=== PATIENT | female | born 1950 | race Caucasian/White ===

== ENCOUNTER → 2020-01-08 13:33 | Outpatient (BNVA) | payer MEDICARE, OTHER, SELFPAY | PROVIDERS: Family Provider Internal Medicine; PCP Internal Medicine; Visit Provider Nurse Practitioner Family | DX: Z20.828 Contact with and (suspected) exposure to other viral communicable diseases (principal) | CPT/HCPCS: 87635 ==

== ENCOUNTER 2020-03-19 09:02 | Outpatient (CLI) | payer MEDICARE, OTHER, SELFPAY ==
--- NOTE | 2020-03-19 09:10 | MM_ITS ---
WS: [id number] Bilateral diagnostic digital mammogram, 03/19/2020 Clinical Data: HX OF BREAST CA Comparison: 02/02/2019, 06/08/2017, 05/29/2016, 05/20/2016, 05/10/2015, 03/09/2014, 01/03/2013, 12/10/2011, 08/05, 07/18/2009, 10/25/2008, 03/14/2008, 10/11/2007, 03/14/2007, 03/10/2007, 12/09/2006, 02/12/2006, 01/29. Findings: The left breast shows heterogeneous density. The left breast shows no spiculated masses or clustered calcifications. There are no secondary signs of carcinoma left breast. The right breast shows scarring and retraction from previous therapy, and the right breast implant is intact. No recurrent carcinoma is seen. There are benign calcifications in the right breast. MM/[id number] Impression: 1. Intact right breast implant and post therapy changes in the right breast, st able findings. 2. Negative left breast. 3. Recommend annual mammograms. BIRADS: 2-Benign FOLLOW UP: 1 Year Follow-up The CAD return checker was used.
== END 2020-03-19 09:03 | disposition home or self-care (01) ==
LOC: RADSHAW 09:08
PROVIDERS: Family Provider Internal Medicine; PCP Internal Medicine; Visit Provider Internal Medicine
DX: Z85.3 Personal history of malignant neoplasm of breast (principal); Z98.82 Breast implant status
CPT/HCPCS: 77066

== ENCOUNTER → 2020-10-03 13:08 | Outpatient (BNVA) | payer MEDICARE, OTHER, SELFPAY | PROVIDERS: Family Provider Internal Medicine; PCP Internal Medicine; Visit Provider Nurse Practitioner Family | DX: Z20.822 Contact with and (suspected) exposure to COVID-19 (principal); J06.9 Acute upper respiratory infection, unspecified; R43.0 Anosmia | CPT/HCPCS: 87635 ==

== ENCOUNTER → 2020-12-17 09:53 | Outpatient (BNVA) | payer MEDICARE, OTHER, SELFPAY | PROVIDERS: Family Provider Internal Medicine; PCP Internal Medicine; Visit Provider Family Medicine | DX: F41.9 Anxiety disorder, unspecified (principal); F32.9 Major depressive disorder, single episode, unspecified; N64.4 Mastodynia; Z13.6 Encounter for screening for cardiovascular disorders; E78.5 Hyperlipidemia, unspecified; I82.509 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 of unspecified lower extremity | CPT/HCPCS: 80053; 80061; 85025 ==

== ENCOUNTER 2020-12-27 09:18 | Outpatient (CLI) | payer MEDICARE, OTHER, SELFPAY ==
--- NOTE | 2020-12-27 09:30 | MM_ITS ---
WS: [id number] DIAGNOSTIC BILATERAL DIGITAL MAMMOGRAM WITH CAD Bilateral breast ultrasound, limited HISTORY: right breast pain COMPARISON: 03/19/2020, 02/02/2019, 06/08/2017 TECHNIQUE: Bilateral craniocaudad, mediolateral oblique, and mediolateral views are submitted. Spot c ompression LEFT ML. Computer aided detection utilized. Breast composition: Prior partial RIGHT lumpectomy with implant. Distortion of the breast tissue and soft tissue calcifications. No abnormality is identified or interval change. High density nodule rickie uring 8 mm seen best on the LEFT ML projecting above the nipple. This is probably edema present on pr ior studies but appears slightly more obvious today. Ultrasound to follow. Bilateral breast ultrasound: RIGHT breast: Ultrasound is directed to the area of pain along the lateral breast into the axilla. Th ere is no underlying mass or soft tissue abnormality identified. LEFT breast: Lateral LEFT breast is imaged. There is no mass identified. No corresponding abnormality to the high density area on the LEFT mammogram which is probably normal fibroglandular tissue [facility]. MM/[id number] IMPRESSION: BI-RADS: 2-Benign FOLLOW UP: 1 Year Follow-up
--- NOTE | 2020-12-27 10:15 | US_ITS ---
WS: [id number] DIAGNOSTIC BILATERAL DIGITAL MAMMOGRAM WITH CAD Bilateral breast ultrasound, limited HISTORY: right breast pain COMPARISON: 03/19/2020, 02/02/2019, 06/08/2017 TECHNIQUE: Bilateral craniocaudad, mediolateral oblique, and mediolateral views are submitted. Spot c ompression LEFT ML. Computer aided detection utilized. Breast composition: Prior partial RIGHT lumpectomy with implant. Distortion of the breast tissue and soft tissue calcifications. No abnormality is identified or interval change. High density nodule rickie uring 8 mm seen best on the LEFT ML projecting above the nipple. This is probably edema present on pr ior studies but appears slightly more obvious today. Ultrasound to follow. Bilateral breast ultrasound: RIGHT breast: Ultrasound is directed to the area of pain along the lateral breast into the axilla. Th ere is no underlying mass or soft tissue abnormality identified. LEFT breast: Lateral LEFT breast is imaged. There is no mass identified. No corresponding abnormality to the high density area on the LEFT mammogram which is probably [facility]/US breast BI limited* [id number] IMPRESSION: BI-RADS: 2-Benign FOLLOW UP: 1 Year Follow-up
== END 2020-12-27 09:19 | disposition home or self-care (01) ==
PROVIDERS: PCP Family Medicine; Visit Provider Family Medicine
DX: N64.4 Mastodynia (principal)
CPT/HCPCS: 76642; 77066

== ENCOUNTER 2021-07-23 13:49 | Outpatient (CLI) | payer MEDICARE, OTHER, SELFPAY ==
[2021-07-23 14:41] LABS: Basophils # 0.1 10^3/uL (0.0-0.1); Basophils % 1.2 %; Eosinophils # 0.3 10^3/uL (0.0-0.8); Eosinophils % 5.3 %; Hematocrit 34.5 % (37.0-47.0); Hemoglobin 11.2 g/dL (11.5-15.3); Lymphocytes # 1.2 10^3/uL (0.8-4.8); Lymphocytes % 19.6 %; Mean Corpuscular HGB Conc 32.5 g/dL (30.0-36.0); Mean Corpuscular Hemoglobin 33.2 pg (28.0-34.0); Mean Corpuscular Volume 102.4 fl (81-99); Mean Platelet Volume 9.6 fL (7.4-10.4); Monocytes # 0.6 10^3/uL (0.2-0.9); Monocytes % 9.2 %; Neutrophils # 3.86 10^3/uL (1.8-7.7); Neutrophils % 64.2 %; Nucleated Red Blood Cells % 0.3 %; Platelet Count 298 10^3/cmm (130-400); Red Blood Count 3.37 10^6/uL (4.1-5.3); Red Cell Distribution Width 16.5 % (12.1-15.1)
[2021-07-23 14:59] LABS: Erythrocyte Sedimentation Rate 48 mm/hr (0-15)
[2021-07-23 15:09] LABS: Alanine Aminotransferase 27 U/L (0-33); Albumin Level 3.8 g/dL (3.5-5.2); Alkaline Phosphatase 56 IU/L (35-105); Anion Gap 16.2 (5-19); Aspartate Amino Transferase 38 U/L (0-32); Blood Urea Nitrogen 12 mg/dL (8-23); Calcium 8.9 mg/dL (8.5-10.5); Carbon Dioxide 24 mmol/L (22-29); Chloride 98 mmol/L (98-107); Globulin 3.3 g/dL (1.3-4.6); Glomerular Filtration Rate 122.3 mL/min (90-130); Glucose 106 mg/dL (65-115); Osmolality Calculated 278 mOsm/kg (285-295); Potassium 4.2 mmol/L (3.5-5.1); Sodium 134 mmol/L (136-145); Total Bilirubin 0.2 mg/dL (0.15-1.2); Total Protein 7.1 g/dL (6.6-8.7)
[2021-07-23 15:24] LABS: 25 Hydroxy Vitamin D 94 ng/mL (30-100); Vitamin B12 852 pg/mL (232-1245)
[2021-07-23 16:51] LABS: Hepatitis B Surface AB 3.5 (11.5-1000)
== END 2021-07-23 13:50 | disposition home or self-care (01) ==
LOC: ONCMED 13:59
PROVIDERS: PCP Family Medicine; Visit Provider Nurse Practitioner Family
DX: K50.90 Crohn's disease, unspecified, without complications (principal)
CPT/HCPCS: 80053; 82306; 82607; 82657; 85025; 85651; 86140; 86706; 99213

== ENCOUNTER 2021-07-29 13:32 | Emergency (ER) | payer MEDICARE, OTHER, SELFPAY ==
[2021-07-29 14:08] VITALS: BP 148/80; PULSE 82; RESP 16; TEMP 36.4; O2SAT 100; BMI 29.0
--- NOTE | 2021-07-29 14:28 | XR_ITS ---
WS: [id number] LEFT HAND: 3 VIEW(S) TECHNIQUE: PA, oblique and lateral. HISTORY: fall with wrist and thumb pain COMPARISON: None available. No acute fracture or dislocation. No soft tissue or bone abnormality. Mild interphalangeal joint space narrowing. No erosions. XR/XR hand LT min 3V* [id number] IMPRESSION: No LEFT hand fracture.
--- NOTE | 2021-07-29 14:28 | XR_ITS ---
WS: [id number] LEFT WRIST: 3 VIEW(S) TECHNIQUE: PA, oblique and lateral. HISTORY: fall with wrist pain COMPARISON: 12/02/2014 No acute fracture or dislocation. Mild diffuse osteopenia. No joint space abnormality. No soft tissue swelling. XR/XR wrist LT min 3V* [id number] IMPRESSION: No LEFT wrist fracture.
--- NOTE | 2021-07-29 14:28 | CT_ITS ---
WS: [id number] CT HEAD NONCONTRAST HISTORY: fall and possibly hit head, no LOC. pt on blood thinner TECHNIQUE: Contiguous axial imaging performed through the brain in 2.5 mm imaging. Bone and soft tiss ue windows. Sagittal and coronal reformats reviewed. All CT scans at [facility] use at least one of these dose optimization techniques: automated exposure control; mA and/or kV adjustment per pa tient size (includes targeted exams where dose is matched to clinical indication); or iterative recon struction. DLP: 949.06 mGy.cm COMPARISON: None available. No acute intracranial hemorrhage, midline shift or mass effect. No atrophy or prior infarcts or herniation. Mild small vessel ischemic disease.13 Ventricles: Normal size with no hydrocephalus. Moderate calcification in the cavernous carotid arteries. Paranasal sinuses: As visualized are clear. Mastoid air cells: Well pneumatized. Calvarium and scalp: Skull is intact with no soft tissue edema or swelling. There is a 5 mm high density foreign body along the anterior surface of the LEFT globe. This may be a calcification or foreign body from the recent trauma. CT/CT head wo con* [id number] IMPRESSION: 1. No acute intracranial hemorrhage or edema. 2. Mild small vessel ischemic disease.
--- NOTE | 2021-07-29 14:28 | XR_ITS ---
WS: [id number] LEFT KNEE: 3 VIEW(S) TECHNIQUE: AP, oblique(s) and lateral. HISTORY: fall with knee pain COMPARISON: 11/15/2015 No fracture or dislocation. Prior LEFT knee arthroplasty. No joint space narrowing or osteophytes. No joint effusion. No soft tissue abnormality. XR/XR knee LT 3V* [id number] IMPRESSION: 1. Status post LEFT knee arthroplasty. 2. No acute fracture.
--- NOTE | 2021-07-29 14:31 | ED_ITS ---
HPI - Fall General: Chief Complaint: Fall Stated Complaint: left wrist injury Time Seen by Provider: 07/29/21 14:14 History of Present Illness: Patient is a 71-year-old female comes to the ED after fall. Patient says she was taking her dogs out for a walk and tripped while walking over a curb. She fell down on the left side and is complaining of having some left knee pain, left wrist and hand pain. Patient is on blood thinners and states that she is unsure if she hit her head or not. Denies any loss of consciousness, headache, nausea/vomiting, numbness/tingling to 1 side of body or weakness to 1 side of body. Denies any neck pain currently. Most of her pain is in her left wrist and she says any movement causes worsening pain. She rates the pain 10 out of 10. Associated symptoms-after fall: Denies abdominal pain, chest pain, headache(s), hematuria or neck pain Review of Systems Const: Denies: fever(s), chills or fatigue Eyes: Denies: change in vision or eye discomfort ENMT: Denies: throat pain, odynophagia, nasal discharge or nasal congestion Card: Denies: chest pain, palpitations, edema, swelling of feet/ankles, dyspnea on exertion or orthopnea Resp: Denies: dyspnea, productive cough or non-productive cough GI: Denies: abdominal pain, nausea, vomiting, diarrhea, constipation or hematochezia : Denies: flank pain, dysuria or hematuria Musc: Reports: extremity pain (Left wrist, left hand and left knee pain.); Denies: neck pain, back pain or extremity swelling Skin/Breast: Denies: rash or new lesions Neuro: Denies: headache(s), numbness in extremities or weakness in extremities PFS ED PFSH: Medical History Anxiety and depression Asthma Crohn disease DVT (deep venous thrombosis) recurrent Dyslipidemia Encounter for long-term opiate analgesic use Factor V deficiency Low back pain of over 3 months duration KEY (nonalcoholic steatohepatitis) Opioid contract exists Osteoporosis Pain in thoracic spine Stable burst fracture of fifth lumbar vertebra Surgical History History of ankle surgery History of arthroplasty of right shoulder History of arthroscopy of left knee x3 History of back surgery 07/19/17 thoracic laminotomy, with placement of intraspinal epidureal paddle electrode arrays( [employer] art[employer], 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 Placement of subcutaneous programmable pulse generator ([employer]) History of basal cell carcinoma excision Nasal History of knee replacement, total 02/2015 History of lumpectomy of right breast 2007 History of partial hysterectomy 1986 History of total replacement of right shoulder joint 2007 and multiple surgeries Hx of eye surgery stent placed in left eye and cataracts Hx of tonsillectomy age 4 Family History Unknown Cancer Social History Smoking and tobacco status: current every day smoker Alcohol intake: former History of recent travel: No Physical Exam Const: COMMON NORMALS: no acute distress, patient oriented x3 and alert GENERAL APPEARANCE: cooperative and comfortable HENMT: COMMON NORMALS: normocephalic HEAD & SCALP: normocephalic MOUTH: Normal oral and palatal mucosa present THROAT: posterior oropharynx normal and uvula midline Eye: COMMON NORMALS: Equal, round and reactive pupils present, EOMs intact bi laterally and conjunctivae normal CONJUNCTIVA: Yes conjunctivae normal PUPIL: Yes Equal, round and reactive pupils present Neck/C-Spine: COMMON NORMALS: supple GENERAL: Yes normal visual inspection Resp: COMMON NORMALS: normal respiratory effort, No retractions, No use of accessory muscles and clear to auscultation bilaterally AUSCULTATION: clear to auscultation bilaterally Cardio: COMMON NORMALS: regular rate, regular rhythm, S1 normal heart sound present, S2 normal heart sound present, No gallops present (Cardio), No clicks present (Cardio), No murmurs present (Cardio) and Peripheral pulses 2+ throughout RATE: regular rate RHYTHM: regular rhythm HEART SOUNDS: S1 normal heart sound present and S2 normal heart sound present PERIPHERAL PULSES: Peripheral pulses 2+ throughout GI: COMMON NORMALS: Normal to inspection, nondistended, normoactive bowel sounds present, Soft to palpation, non-tender and no masses PALPATION: Yes Soft to palpation : COMMON NORMALS: Yes no CVA tenderness BLADDER/KIDNEY EXAM: Yes no CVA tenderness Back/Pelvis: COMMON NORMALS: no CVA tenderness Extremity: COMMON NORMALS: normal to inspection LEFT UPPER EXTREMITY: Yes wrist Left wrist: Yes inspection (No visible deformity or swelling.), Yes palpation (Tenderness over radial aspect of wrist.) and Yes neurovascular exam (Neurovascular tact) Neuro: COMMON NORMALS: patient oriented x3, CN's II-XII intact bilaterally, moves all extremities, no focal motor deficits and no sensory deficits noted SENSORIUM/ORIENTATION: Yes alert SENSORY EXAM: Yes extremities (intact) MOTOR EXAM: 5/5 motor strength present throughout Skin: GENERAL SKIN EXAM: dry skin Course Vital Signs: Vital signs: Vital Signs Temperature 97.5 F L 07/29/21 14:08 Pulse Rate 82 07/29/21 14:08 Respiratory Rate 16 07/29/21 14:08 Blood Pressure 148/80 07/29/21 14:08 Pulse Oximetry 100 07/29/21 14:08 MDM - Fall Medical Decision Making Patient is a 71-year-old female comes to the ED with left wrist pain after fall. Patient is on blood thinners and thinks she possibly hit her head but denies any loss of consciousness. She also is complaining of some left knee pain as well. Exam is benign and neuro exam shows no deficits. CT of head showed no acute fractures. X-rays of left knee, left wrist and left hand showed no acute fractures or findings. Patient was diagnosed with a left wrist sprain and discharged home. She was told to follow-up with her PCP in the next week for reevaluation. Wear Velcro wrist brace for the next couple days to allow for healing. Return to ED precautions given. Patient is to agree with plan. Lab Data Radiology Impressions Hand X-Ray 07/29/21 14:28 IMPRESSION: No LEFT hand fracture. Head CT 07/29/21 14:28 IMPRESSION: 1. No acute intracranial hemorrhage or edema. 2. Mild small vessel ischemic disease. Knee X-Ray 07/29/21 14:28 IMPRESSION: 1. Status post LEFT knee arthroplasty. 2. No acute fracture. Wrist X-Ray 07/29/21 14:28 IMPRESSION: No LEFT wrist fracture. Discharge Plan Discharge Patient Disposition: Home Clinical Impression: Left wrist sprain Qualifiers: Encounter type: initial encounter Qualified Code(s): S63.502A - Unspecified sprain of left wrist, initial encounter Condition: Stable Prescriptions: No Action All Day Allergy (cetirizine) 10 mg capsule 10 mg PO DAILY PRN0RF albuterol sulfate [Ventolin HFA] 90 mcg/actuation HFA aerosol inhaler 1 inh INHALATION ONCE PRN0RF Prolia 60 mg/mL syringe SUBCUT .every 6 months 0RF lactulose 10 gram/15 mL syrup PO .as needed 0RF cyclobenzaprine 10 mg tablet 10 mg PO TID Qty: 90 2RF tramadol 50 mg tablet 50 mg PO .1-2 tab TID PRN (Reason: pain) Qty: 180 1RF azathioprine 50 mg tablet 100 mg PO BID 0RF aripiprazole 2 mg tablet 2 mg PO DAILY Qty: 90 1RF Rx Instructions: 340 B citalopram 40 mg tablet 40 mg PO DAILY Qty: 90 1RF amoxicillin-pot clavulanate [Augmentin] 875-125 mg tablet 1 tab PO BID Qty: 20 0RF Mucinex 1,200 mg tablet extended release 12hr 1,200 mg PO BID Qty: 20 0RF nortriptyline 25 mg capsule 25 mg PO DAILY Qty: 90 1RF atorvastatin 10 mg tablet 10 mg PO DAILY Qty: 90 1RF calcium carbonate [Calcium 600] 600 mg calcium (1,500 mg) tablet 600 mg PO DAILY Qty: 90 1RF cholecalciferol (vitamin D3) 125 mcg (5,000 unit) capsule 125 mcg PO DAILY Qty: 90 1RF omeprazole 40 mg capsule,delayed release(DR/EC) 40 mg PO DAILY Qty: 90 1RF brimonidine 0.2 % drops 1 drp ophthalmic (eye) .COMPLEX 90 Days Qty: 30 1RF Rx Instructions: 1 drp ophthalmic (eye) 1 drop in each eye BID; latanoprost 0.005 % drops 1 drp ophthalmic (eye) .COMPLEX 30 Days Qty: 7.5 1RF Rx Instructions: 1 drp ophthalmic (eye) 1 drop at bedtime in both eyes; warfarin 5 mg tablet 5 mg PO DAILY Qty: 90 1RF Rx Instructions: As directed warfarin 2.5 mg tablet 2.5 mg PO DAILY Qty: 90 1RF Rx Instructions: As directed warfarin 10 mg tablet 10 mg PO .COMPLEX 90 Days Qty: 132 1RF Rx Instructions: 10 mg PO 17.2MG Tues,thurs,sat take with 7.5mg 22.5mg sun,mon,weds,fri; take with 2.5mg Discharge Orders: Discharge ED (Routine); Ordered 07/29/21 Ordered By: Vineet Donahue Referrals: Mckenna Rubin DO [Primary Care Provider] - Discharge Diet: Regular Discharge Activity: Increase activity as tolerated Patient Instructions: Wrist Sprain (ED) Activity Restrictions/Additional Instructions: Follow-up with medical provider as directed. Continue taking home medications as prescribed. Wear wrist brace for the next couple days to allow for it to heal. Return to the ER or your medical provider if condition worsens. Please read and understand discharge instructions. Thank you for choosing [facility] for your healthcare needs today. Please realize this is an emergency room and that we are providing you with a medical screening exam and this may not be complete and all inclusive of all the testing and or work up that you may need to determine your ailment or severity of your illness. It is very important that you follow up as instructed or that you return to the Emergency Department should you have concerns or if your condition changes or worsens in any way. Coding Level of Care Code ED Check Inspector for Misti Elizabeth Exam Comprehensive
[2021-07-29] MEDS: HYDROcodone-acetaminophen 7.5-325 mg Tablet 1 TAB PO (15:01)
== END 2021-07-29 16:08 | disposition home or self-care (01) ==
PROVIDERS: Emergency Provider Physician Assistant; PCP Family Medicine
DX: S63.502A Unspecified sprain of left wrist, initial encounter (principal); F17.210 Nicotine dependence, cigarettes, uncomplicated; W01.198A Fall on same level from slipping, tripping and stumbling with subsequent striking against other object, initial encounter; Z79.51 Long term (current) use of inhaled steroids; Z79.891 Long term (current) use of opiate analgesic; Z79.01 Long term (current) use of anticoagulants
CPT/HCPCS: 70450; 73110; 73130; 73562; 99283

== ENCOUNTER 2021-08-07 05:39 | Day surgery (SDC) | payer MEDICARE, OTHER, SELFPAY ==
[2021-08-06 08:40] VITALS: BMI 29.0
[2021-08-07 06:07] VITALS: BP 127/75; PULSE 82; RESP 18; TEMP 36.1; O2SAT 100
[2021-08-07] MEDS: sodium chloride 0.9% 1,000 ML 30 ML IV (06:17)
--- NOTE | 2021-08-07 06:38 | W.PM.OPSUD ---
Surgery/Procedure H&P Update DATE OF PROCEDURE: August 07, 2021 DATE H&P PERFORMED: 07/23/21 H&P UPDATE INFORMATION: I have reviewed H&P completed within last 30 days, I have examined patient prior to procedure and No changes to prior documentation PREOP DIAGNOSIS: History of Crohn's disease PRIMARY INDICATION FOR PROCEDURE: The same PLANNED PROCEDURE: Operation Date: 08/07/21 07:00 Proposed Procedures p Colonoscopy 20294/k50.90 (Dr Herrera requested double time slot)(Not Applicable) - Jamin Herrera MD
--- NOTE | 2021-08-07 07:00 | P.ANESASSM_ITS ---
Pre-Anesthetic Assessment Height/Weight: Height 1.7 m Weight 83.915 kg Temp Pulse Resp BP Pulse Ox 97.0 F L 82 18 127/75 100 08/07/21 06:07 08/07/21 06:07 08/07/21 06:07 08/07/21 06:07 08/07/21 06:07 Preop Diagnosis: History of Crohn's disease Operation Date: 08/07/21 07:00 Proposed Procedures p Colonoscopy 50142/k50.90 (Dr Herrera requested double time slot)(Not Applicable) - Jamin Herrera MD Was Beta Evelia taken within 24 hours: N/A Was Clonidine taken within 24 hours: N/A Last intake: Intake Last Liquid Date 08/06/21 Last Liquid Time 20:00 Last Solid Date 08/05/21 Social Tobacco Exam alert, oriented x 3, clear to auscultation bilaterally and regular rate & rhythm Airway Submandibular: within normal limits Cervical ROM: within normal limits Mallampati: Class II Dentition: full History/ROS No significant history except as noted and No significant complaints Pulmonary Asthma CV/HEM None reported None reported Hepatic None reported GI Chron's Metabolic None reported Musc/skel Lower Back Pain nerve stimulator Neuropsych Anxiety and Depression Anesthetic Plan ASA status: 3 Anesthesia: Anesthesia Evaluation and MAC Risk of > 500 ml blood loss (7ml/kg in children): No Medications/Allergies Home Medications Medication Instructions Recorded Confirmed Last Taken Type albuterol sulfate 90 mcg/actuation 1 inh INHALATION PRN PRN gm 07/25/19 08/07/21 Unknown History aerosol inhaler (Ventolin HFA) denosumab 60 mg/mL subcutaneous 60 mg SUBCUT .every 6 months ml 07/25/19 08/07/21 Unknown History syringe (Prolia) lactulose 10 gram/15 mL oral syrup 10 gm PO DAILY 07/25/19 08/07/21 08/06/21 History tramadol 50 mg tablet 50 mg PO .1-2 tab TID PRN #180 tab 07/25/19 08/07/21 08/06/21 Rx cetirizine 10 mg capsule (All Day 10 mg PO DAILY PRN 11/12/20 08/07/21 08/06/21 History Allergy (cetirizine)) azathioprine 50 mg tablet 100 mg PO BID tab 01/14/21 08/07/2108/06/22 History atorvastatin 10 mg tablet 10 mg PO DAILY #90 tab 03/07/21 08/07/21 08/06/21 Rx calcium carbonate 600 mg calcium 600 mg PO DAILY #90 tab 03/07/21 08/07/21 08/06/21 Rx (1,500 mg) tablet (Calcium) cholecalciferol (vitamin D3) 125 125 mcg PO DAILY #90 cap 03/07/21 08/07/21 08/06/21 Rx mcg (5,000 unit) capsule omeprazole 40 mg capsule,delayed 40 mg PO DAILY #90 cap 03/07/21 08/07/21 08/06/21 Rx release brimonidine 0.2 % eye drops 1 drp OPHTHALMIC (EYE) .COMPLEX 90 03/10/21 08/07/21 08/06/21 Rx Days #30 ml aripiprazole 2 mg tablet 2 mg PO DAILY #90 tab 04/15/21 08/07/21 08/06/21 Rx citalopram 40 mg tablet 40 mg PO DAILY #90 tab 04/15/21 08/07/21 08/06/21 Rx warfarin 2.5 mg tablet 2.5 mg PO DAILY #90 tab 05/13/21 08/06/21 08/04/21 Rx warfarin 5 mg tablet 5 mg PO DAILY #90 tab 05/13/21 08/06/21 08/04/21 Rx warfarin 10 mg tablet 10 mg PO .COMPLEX 90 Days #132 tab 05/15/21 08/06/21 08/04/21 Rx cyclobenzaprine 10 mg tablet 10 mg PO TID PRN 08/06/21 08/07/21 08/06/21 History latanoprost 0.005 % eye drops 1 drp OPHTHALMIC (EYE) BEDTIME 08/06/21 08/07/21 08/06/21 History ojtidebc-aae-cahqi 120 mcg-lutein 1 tab PO DAILY 08/06/21 08/07/21 08/06/21 History 150 mcg-herb 37.5 mg chewable tablet (Alive Women's 50 Plus) nortriptyline 25 mg capsule 25 mg PO BEDTIME 08/06/21 08/07/21 08/06/21 History Allergies Allergy/AdvReac Type Severity Reaction Status Date / Time No Known Allergies Allergy Verified 08/07/21 06:12 Current Medications Generic Name Dose Route Start Last Admin Trade Name Freq PRN Reason Stop Dose Admin Sodium Chloride 1,000 mls @ 30 mls/hr 08/07/21 06:00 08/07/21 06:17 Sodium Chloride 0.9% IV 30 mls/hr .Q24H STEWART Administration PFSH Anesthesia Medical History Anxiety and depression Asthma Crohn disease DVT (deep venous thrombosis) recurrent Dyslipidemia Encounter for long-term opiate analgesic use Factor V deficiency Low back pain of over 3 months duration KEY (nonalcoholic steatohepatitis) Opioid contract exists Osteoporosis Pain in thoracic spine Stable burst fracture of fifth lumbar vertebra Surgical History History of ankle surgery History of arthroplasty of right shoulder History of arthroscopy of left knee x3 History of back surgery 07/19/17 thoracic laminotomy, with placement of intraspinal epidureal paddle electrode arrays( [employer] art[employer], 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 Placement of subcutaneous programmable pulse generator ([employer]) History of basal cell carcinoma excision Nasal History of knee replacement, total 02/2015 History of lumpectomy of right breast 2007 History of partial hysterectomy 1986 History of total replacement of right shoulder joint 2008 and multiple surgeries Hx of eye surgery stent placed in left eye and cataracts Hx of tonsillectomy age 4 Family History Unknown Cancer Social History Smoking and tobacco status: current every day smoker Alcohol intake: former History of recent travel: No Data Anesthesia Cardiac Studies: No Data to Display
[2021-08-07 08:32] VITALS: BP 152/102; PULSE 80; RESP 18; TEMP 36.1; O2SAT 100
[2021-08-07 08:47] VITALS: BP 154/90; PULSE 73; RESP 16; O2SAT 100
== END 2021-08-07 09:07 | disposition home or self-care (01) ==
PROVIDERS: PCP Family Medicine; Visit Provider Surgery
PROC: 0DJD8ZZ Inspection of Lower Intestinal Tract, Via Natural or Artificial Opening Endoscopic (ICD-10-PCS; CPT 45378; principal; 2021-08-07 07:00)
DX: Z12.11 Encounter for screening for malignant neoplasm of colon (principal); K57.30 Diverticulosis of large intestine without perforation or abscess without bleeding; J45.909 Unspecified asthma, uncomplicated; F41.9 Anxiety disorder, unspecified; F32.9 Major depressive disorder, single episode, unspecified; E78.5 Hyperlipidemia, unspecified; Z86.718 Personal history of other venous thrombosis and embolism; M81.0 Age-related osteoporosis without current pathological fracture; F17.210 Nicotine dependence, cigarettes, uncomplicated
CPT/HCPCS: 45380; 88305; J2704; J7030

== ENCOUNTER → 2021-08-14 14:17 | Outpatient (BNVA) | payer MEDICARE, OTHER, SELFPAY | PROVIDERS: PCP Family Medicine; Visit Provider Surgery | DX: Z09 Encounter for follow-up examination after completed treatment for conditions other than malignant neoplasm (principal); K57.31 Diverticulosis of large intestine without perforation or abscess with bleeding; Z87.19 Personal history of other diseases of the digestive system | CPT/HCPCS: 99213 ==

== ENCOUNTER 2021-09-09 10:00 | Outpatient (CLI) | payer MEDICARE, OTHER, SELFPAY ==
[2021-09-09 11:00] LABS: Basophils % 0.9 %; Eosinophils # 0.1 10^3/uL (0.0-0.8); Eosinophils % 1.8 %; Hematocrit 34.8 % (37.0-47.0); Hemoglobin 11.2 g/dL (11.5-15.3); Lymphocytes # 0.8 10^3/uL (0.8-4.8); Mean Corpuscular HGB Conc 32.2 g/dL (30.0-36.0); Mean Corpuscular Hemoglobin 32.7 pg (28.0-34.0); Mean Corpuscular Volume 101.8 fl (81-99); Mean Platelet Volume 9.5 fL (7.4-10.4); Monocytes # 0.4 10^3/uL (0.2-0.9); Monocytes % 9.4 %; Neutrophils # 3.01 10^3/uL (1.8-7.7); Neutrophils % 69.4 %; Nucleated Red Blood Cells % 0 %; Platelet Count 289 10^3/cmm (130-400); Red Blood Count 3.42 10^6/uL (4.1-5.3); Red Cell Distribution Width 16.6 % (12.1-15.1); White Blood Count 4.3 10^3/uL (4.0-10.0)
[2021-09-09 11:29] LABS: INR 1.94 (0.8-1.2)
[2021-09-09 11:33] LABS: Alanine Aminotransferase 23 U/L (0-33); Albumin Level 3.7 g/dL (3.5-5.2); Alkaline Phosphatase 73 IU/L (35-105); Anion Gap 13.2 (5-19); Aspartate Amino Transferase 36 U/L (0-32); Blood Urea Nitrogen 7 mg/dL (8-23); Calcium 9.2 mg/dL (8.5-10.5); Carbon Dioxide 25 mmol/L (22-29); Chloride 95 mmol/L (98-107); Globulin 2.9 g/dL (1.3-4.6); Glomerular Filtration Rate 122.3 mL/min (90-130); Glucose 117 mg/dL (65-115); Osmolality Calculated 267 mOsm/kg (285-295); Potassium 4.2 mmol/L (3.5-5.1); Sodium 129 mmol/L (136-145); Total Bilirubin 0.4 mg/dL (0.15-1.2); Total Protein 6.6 g/dL (6.6-8.7)
== END 2021-09-09 10:01 | disposition home or self-care (01) ==
PROVIDERS: PCP Family Medicine; Visit Provider Internal Medicine Obesity Medicine
DX: K76.0 Fatty (change of) liver, not elsewhere classified (principal); Z79.01 Long term (current) use of anticoagulants
CPT/HCPCS: 80053; 85025; 85610

== ENCOUNTER 2021-10-11 09:43 | Emergency (ER) | payer MEDICARE, OTHER, SELFPAY ==
[2021-10-11 10:04] VITALS: BP 122/74; PULSE 86; RESP 14; TEMP 36.6; O2SAT 97; BMI 28.3
[2021-10-11 10:15] VITALS: BP 136/73; PULSE 76; O2SAT 100
[2021-10-11] MEDS: ketorolac 30 mg/mL INJ IM (10:29)
[2021-10-11] MEDS: orphenadrine 30 mg/mL Inj 2 mL 60 MG IM (10:29)
[2021-10-11] MEDS: dexamethasone 10 mg/mL INJ IM (10:29)
--- NOTE | 2021-10-11 10:49 | XRR_ITS ---
PROCEDURE INFORMATION: Exam: XR Lumbosacral Spine Exam date and time: 10/11/2021 11:18 AM Age: 71 years old Clinical indication: Low back pain; Prior surgery; Additional info: HX compression FX - pain TECHNIQUE: Imaging protocol: Radiologic exam of the lumbosacral spine. Views: 2 or 3 views. COMPARISON: [place] [id number] 11/15/2017 3:06 PM FINDINGS: Bones/joints: There is generalized osteopenia seen. Compression fractures are present at the L4 and L5 vertebral body levels status post kyphoplasty. The superior endplate of the L2 vertebral body also shows compression fracture. This finding is new since prior Soft tissues: Electronic spinal stimulator is seen in the soft tissues of the back. Evidence of cholecystectomy is seen. XR/XR lumbar spine 2-3V* [id number] IMPRESSION: 1. Severe osteopenia stable since prior 2. Vertebral compression deformity is L4-L5 status post kyphoplasty. 3. Compression deformity superior endplate L2 vertebral body
--- NOTE | 2021-10-11 10:50 | W.ED.BACK ---
HPI - Back Pain/Injury General: Chief Complaint: Back Pain/Injury Stated Complaint: back pain Time Seen by Provider: 10/11/21 09:48 Source: patient Mode of arrival: ambulatory Limitations: no limitations History of Present Illness: 71-year-old female presents emergency room complaining of back pain. Began while lifting furniture about 1 week ago. Patient has known history of spinal stenosis and previously had a spinal cord stimulator implanted about 5 years ago. She tried various settings under spinal cord stimulator with no relief of her symptoms. She has not had any fecal incontinence or urinary retention no radiation of pain into her legs pain is in the lower portion of her lumbar spine. MD elicited complaint: back pain Pertinent past history: prior back pain Onset (ago): week(s) (1) Timing: constant Severity: moderate Similar Symptoms Previously: Yes Quality: sharp Location: lumbar spine Radiation: none Exacerbating factors: movement and walking Relieving factors: supine Context: while lifting Associated symptoms: Deny abdominal pain, arthralgias, chills, change in bowel habits, difficulty walking, dysuria, fatigue, fecal incontinence, fever(s), hematuria, myalgias, nausea, numbness, syncope, tingling/numbness/burning, urinary frequency, urinary urgency, vomiting or weakness Review of Systems Const: Denies: fever(s), chills, fatigue or malaise ENMT: Denies: throat pain, ear or mastoid pain, nasal discharge or nasal congestion Card: Denies: chest pain, palpitations or syncope Resp: Denies: dyspnea, productive cough or non-productive cough GI: Denies: abdominal pain, nausea, vomiting, fecal incontinence or change in bowel habits : Denies: flank pain, difficulty voiding, dysuria, urinary frequency, urinary urgency or hematuria Musc: Reports: back pain; Denies: extremity pain Skin/Breast: Denies: rash or pruritus Neuro: Denies: headache(s) or difficulty walking PFSH ED PFSH: Medical History Anxiety and depression Asthma Crohn disease DVT (deep venous thrombosis) recurrent Dyslipidemia Encounter for long-term opiate analgesic use Factor V deficiency Low back pain of over 3 months duration KEY (nonalcoholic steatohepatitis) Opioid contract exists Osteoporosis Pain in thoracic spine Stable burst fracture of fifth lumbar vertebra Surgical History History of ankle surgery History of arthroplasty of right shoulder History of arthroscopy of left knee x3 History of back surgery 07/19/17 thoracic laminotomy, with placement of intraspinal epidureal paddle electrode arrays( [employer]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 Placement of subcutaneous programmable pulse generator ([employer]) History of basal cell carcinoma excision Nasal History of knee replacement, total 02/2015 History of lumpectomy of right breast 2007 History of partial hysterectomy 1986 History of total replacement of right shoulder joint 2007 and multiple surgeries Hx of eye surgery stent placed in left eye and cataracts Hx of tonsillectomy age 4 Family History Unknown Cancer Social History Smoking and tobacco status: current every day smoker Alcohol intake: former History of recent travel: No Physical Exam Const: GENERAL APPEARANCE: cooperative and comfortable ORIENTATION/CONSCIOUSNESS: Yes awake, Yes oriented to person, Yes oriented to place and Yes oriented to time HENMT: COMMON NORMALS: normocephalic, atraumatic and hearing grossly normal bilaterally HEAD & SCALP: normocephalic and atraumatic Neck/C-Spine: COMMON NORMALS: no JVD Resp: COMMON NORMALS: normal respiratory effort, No retractions, No use of accessory muscles and clear to auscultation bilaterally AUSCULTATION: clear to auscultation bilaterally Cardio: COMMON NORMALS: no JVD, regular rate, regular rhythm and No murmurs present (Cardio) RATE: regular rate RHYTHM: regular rhythm GI: COMMON NORMALS: Soft to palpation and No hepatosplenomegaly present AUSCULTATION: Yes normoactive bowel sounds PALPATION: Yes Soft to palpation, No Tenderness to palpation present (GI), No Guarding due to palpation present (GI) and Yes No hepatosplenomegaly present : COMMON NORMALS: No no CVA tenderness BLADDER/KIDNEY EXAM: No no CVA tenderness Back/Pelvis: COMMON NORMALS: negative for no CVA tenderness Extremity: COMMON NORMALS: normal to inspection, capillary refill normal, no clubbing, cyanosis or edema, no calf tenderness and no pedal edema OTHER: Straight leg raising is negative Neuro: SENSORIUM/ORIENTATION: Yes oriented to person, Yes oriented to place and Yes oriented to time Skin: COMMON NORMALS: no rashes or lesions noted GENERAL SKIN EXAM: no rashes or lesions noted Course Vital Signs: Vital signs: Vital Signs Temperature 98 F 10/11/21 10:04 Pulse Rate 69 10/11/21 11:04 Respiratory Rate 14 10/11/21 10:04 Blood Pressure 112/63 10/11/21 11:04 Pulse Oximetry 98 10/11/21 11:04 MDM - Back Pain/Injury Medical Decision Making Treat for musculoskeletal low back pain imaging reviewed. Discussed with patient. No later at signing this document noted that the radiologist was concerned about her compression for deformity at the superior endplate of L2. Patient was advised to follow-up with primary care. Medical Records I reviewed the patient's medical records. Labs I reviewed the patient's lab results. Radiology Impressions Lumbar Spine X-Ray 10/11/21 10:49 IMPRESSION: 1. Severe osteopenia stable since prior 2. Vertebral compression deformity is L4-L5 status post kyphoplasty. 3. Compression deformity superior endplate L2 vertebral body Discharge Plan Discharge Patient Disposition: Home Clinical Impression: Strain of lumbar region Condition: Stable Prescriptions: New prednisone 20 mg tablet 20 mg PO TID Qty: 15 0RF Rx Instructions: 1 p.o. 3 times daily x3 days, 1 p.o. twice daily x2 days, 1 p.o. daily x2 days diclofenac sodium 75 mg tablet,delayed release (DR/EC) 75 mg PO Q12H PRN (Reason: pain) Qty: 20 0RF tizanidine 4 mg capsule 4 mg PO Q8H PRN (Reason: muscle spasticity) Qty: 20 0RF No Action All Day Allergy (cetirizine) 10 mg capsule 10 mg PO DAILY PRN (Reason: Allergy Symptoms) 0RF albuterol sulfate [Ventolin HFA] 90 mcg/actuation HFA aerosol inhaler 1 inh INHALATION PRN PRN (Reason: Shortness Of Breath) 0RF Prolia 60 mg/mL syringe 60 mg SUBCUT .every 6 months 0RF lactulose 10 gram/15 mL syrup 10 gm PO DAILY 0RF tramadol 50 mg tablet 50 mg PO .1-2 tab TID PRN (Reason: pain) Qty: 180 1RF azathioprine 50 mg tablet 100 mg PO BID 0RF aripiprazole 2 mg tablet 2 mg PO DAILY Qty: 90 1RF Rx Instructions: 340 B metronidazole 500 mg tablet 500 mg PO Q8H 10 Days Qty: 30 0RF ciprofloxacin HCl [Cipro] 500 mg tablet 500 mg PO BID 10 Days Qty: 20 0RF atorvastatin 10 mg tablet 10 mg PO DAILY Qty: 90 1RF calcium carbonate [Calcium 600] 600 mg calcium (1,500 mg) tablet 600 mg PO DAILY Qty: 90 1RF cholecalciferol (vitamin D3) 125 mcg (5,000 unit) capsule 125 mcg PO DAILY Qty: 90 1RF brimonidine 0.2 % drops 1 drp ophthalmic (eye) .COMPLEX 90 Days Qty: 30 1RF Rx Instructions: 1 drp ophthalmic (eye) 1 drop in each eye BID; warfarin 5 mg tablet 5 mg PO DAILY Qty: 90 1RF Hold Instructions: Resume on 08/13/21. Rx Instructions: As directed warfarin 2.5 mg tablet 2.5 mg PO DAILY Qty: 90 1RF Hold Instructions: Resume on 08/13/21. Rx Instructions: As directed warfarin 10 mg tablet 10 mg PO .COMPLEX 90 Days Qty: 132 1RF Hold Instructions: Resume on 08/12/21. Rx Instructions: 10 mg PO 17.5MG Tues,thurs. 15mg all other days omeprazole 40 mg capsule,delayed release(DR/EC) See Rx Instructions .ROUTE .COMPLEX Qty: 90 0RF Dose Instruction: TAKE 1 CAPSULE EVERY DAY Rx Instructions: TAKE 1 CAPSULE EVERY DAY nortriptyline 25 mg capsule 25 mg PO BEDTIME Qty: 90 1RF latanoprost 0.005 % drops See Rx Instructions .ROUTE .COMPLEX Qty: 3 0RF Dose Instruction: INSTILL 1 DROP INTO BOTH EYES AT BEDTIME Rx Instructions: INSTILL 1 DROP INTO BOTH EYES AT BEDTIME citalopram 40 mg tablet See Rx Instructions .ROUTE .COMPLEX Qty: 90 0RF Dose Instruction: TAKE 1 TABLET EVERY DAY Rx Instructions: TAKE 1 TABLET EVERY DAY Alive Women's 50 Plus Gummy 120 mcg-150 mcg -37.5 mg Tablet,Chewable 1 tab PO DAILY 0RF cyclobenzaprine 10 mg tablet 10 mg PO TID PRN (Reason: Spasms) 0RF Discharge Orders: Discharge ED (Routine); Ordered 10/11/21 Ordered By: Miller Dinero Referrals: Mckenna Rubin DO [Primary Care Provider] - Discharge Diet: Usual diet Discharge Activity: Limit activity as instructed Patient Instructions: Acute Low Back Pain (ED), Opioid Safety Activity Restrictions/Additional Instructions: No lifting bending or stooping. Do not work below waist level or above shoulder level do not lift more than 10 pounds. Follow-up with primary care doctor within a week if not beginning to improve. Coding Level of Care Code ED Agriculture Mechanic for Chg Fwd Exam Comprehensive
[2021-10-11 11:04] VITALS: BP 112/63; PULSE 69; O2SAT 98
--- NOTE | 2021-10-14 14:55 | PC.NURSE ---
Patient was notified By Dima Desouza RN, patient is to follow-up with primary, X-ray report stated the patient had a slight compression @ L2. Patient notified by phone @ [phone] 10-14-2021.
== END 2021-10-11 12:10 | disposition home or self-care (01) ==
PROVIDERS: Emergency Provider Family Medicine; PCP Family Medicine
DX: S39.012A Strain of muscle, fascia and tendon of lower back, initial encounter (principal); X50.0XXA Overexertion from strenuous movement or load, initial encounter
CPT/HCPCS: 72100; 96372; 99284; J1100; J1885; J2360

== ENCOUNTER → 2021-10-21 14:33 | Outpatient (BNVA) | payer MEDICARE, OTHER, SELFPAY | PROVIDERS: PCP Family Medicine; Visit Provider Orthopaedic Surgery | DX: S32.029A Unspecified fracture of second lumbar vertebra, initial encounter for closed fracture (principal); X50.0XXA Overexertion from strenuous movement or load, initial encounter | CPT/HCPCS: 99204 ==

== ENCOUNTER 2021-10-24 08:35 | Day surgery (SDC) | payer MEDICARE, OTHER, SELFPAY ==
[2021-10-23 09:24] VITALS: BMI 29.0
--- NOTE | 2021-10-23 10:37 | ANES.PREANE2 ---
Pre-Anesthetic Assessment Height/Weight: Height 1.7 m Weight 83.915 kg Preop Diagnosis: History of Crohn's disease Operation Date: 10/24/21 10:10 Proposed Procedures p Kyphoplasty L2 [place] 07149/S3200.01A(Not Applicable) - Alexis Conte DO Familial anesthetic complications: none Was Beta Evelia taken within 24 hours: N/A Was Clonidine taken within 24 hours: N/A Social Tobacco and No alcohol Exam alert, oriented x 3 and regular rate & rhythm rhonchi Airway Submandibular: within normal limits Cervical ROM: within normal limits Mallampati: Class II Dentition: chipped Pulmonary Asthma and Chronic Obstructive Pulmonary Disease CV/HEM Deep Vein Thrombosis GI Gastroesophageal Reflux Disease Crohn's Metabolic Hyperlipidemia and Morbid Obesity Musc/skel Lower Back Pain Neuropsych Anxiety and Depression Anesthetic Plan ASA status: 3 Anesthesia: Choice Medications/Allergies Home Medications Medication Instructions Recorded Confirmed Last Taken Type albuterol sulfate 90 mcg/actuation 1 inh INHALATION PRN PRN gm 07/25/19 10/23/21 Unknown History aerosol inhaler (Ventolin HFA) denosumab 60 mg/mL subcutaneous 60 mg SUBCUT .every 6 months ml 07/25/19 10/23/21 02/19/21 History syringe (Prolia) lactulose 10 gram/15 mL oral syrup 10 gm PO DAILY 07/25/19 10/23/21 08/06/21 History tramadol 50 mg tablet 50 mg PO .1-2 tab TID PRN #180 tab 07/25/19 10/23/21 08/06/21 Rx cetirizine 10 mg capsule (All Day 10 mg PO DAILY PRN 11/12/20 10/23/21 08/06/21 History Allergy (cetirizine)) azathioprine 50 mg tablet 100 mg PO BID tab 01/14/21 10/23/21 08/06/21 History calcium carbonate 600 mg calcium 600 mg PO DAILY #90 tab 03/07/21 10/23/21 08/06/21 Rx (1,500 mg) tablet (Calcium) cholecalciferol (vitamin D3) 125 125 mcg PO DAILY #90 cap 03/07/21 10/23/21 08/06/21 Rx mcg (5,000 unit) capsule brimonidine 0.2 % eye drops 1 drp OPHTHALMIC (EYE) .COMPLEX 90 03/10/21 10/23/21 08/06/21 Rx Days #30 ml warfarin 10 mg tablet 10 mg PO .COMPLEX 90 Days #132 tab 05/15/21 10/23/21 10/20/21 Rx [id number] 120 mcg-lutein 1 tab PO DAILY 08/06/21 10/23/21 08/06/21 History 150 mcg-herb 37.5 mg chewable tablet (Alive Women's 50 Plus Gummy) nortriptyline 25 mg capsule 25 mg PO BEDTIME #90 cap 09/23/21 10/23/21 Unknown Rx aripiprazole 2 mg tablet 2 mg PO DAILY #90 tab 10/16/21 10/23/21 Unknown Rx atorvastatin 10 mg tablet 10 mg PO DAILY #90 tab 10/16/21 10/23/21 Unknown Rx tizanidine 4 mg capsule 4 mg PO Q8H PRN #30 cap 10/16/21 10/23/21 Unknown Rx citalopram 40 mg tablet 40 mg PO DAILY 10/23/21 10/23/21 Unknown History latanoprost 0.005 % eye drops 1 drp OPHTHALMIC (EYE) BEDTIME 10/23/21 10/23/21 Unknown History omeprazole 40 mg capsule,delayed 40 mg PO DAILY 10/23/21 10/23/21 Unknown History release Allergies Allergy/AdvReac Type Severity Reaction Status Date / Time No Known Allergies Allergy Verified 10/23/21 09:15 [facility] Anesthesia Medical History Anxiety and depression Asthma Crohn disease DVT (deep venous thrombosis) recurrent Dyslipidemia Encounter for long-term opiate analgesic use Factor V deficiency Low back pain of over 3 months duration KEY (nonalcoholic steatohepatitis) Opioid contract exists Osteoporosis Pain in thoracic spine Stable burst fracture of fifth lumbar vertebra Surgical History History of ankle surgery History of arthroplasty of right shoulder History of arthroscopy of left knee x3 History of back surgery 07/19/17 thoracic laminotomy, with placement of intraspinal epidureal paddle electrode arrays( [employer]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 Placement of subcutaneous programmable pulse generator (v2 [employer]ings) History of basal cell carcinoma excision Nasal History of knee replacement, total 02/2015 History of lumpectomy of right breast 2007 History of partial hysterectomy 1986 History of total replacement of right shoulder joint 2008 and multiple surgeries Hx of eye surgery stent placed in left eye and cataracts Hx of tonsillectomy age 4 Family History Unknown Cancer Social History Smoking and tobacco status: former smoker Alcohol intake: former History of recent travel: No Data Anesthesia Cardiac Studies: No Data to Display
[2021-10-24] VITALS (9 sets, daily range): BP systolic 114–163; BP diastolic 64–81; PULSE 73–109; RESP 13–25; TEMP 36.2–36.4; O2SAT 92–98
--- NOTE | 2021-10-24 | SCC_ITS ---
Procedure: L2 kyphoplasty 43.3 seconds of fluoroscopic guidance, for a cumulative dose of 19.11 mGy, was provided to Dr. Conte by the radiology department. C-arm images of the lumbar spine were saved for the patient's permanent record. RANDY
--- NOTE | 2021-10-24 08:40 | SC_ITS ---
WS: [id number] INTRAOPERATIVE TECHNIQUE: 6 Spot fluoroscopic images for intraoperative purposes. FLUOROSCOPY TIME: 43.3 seconds CLINICAL INFORMATION: L2 kyphoplasty COMPARISON: None. FINDINGS: Prior vertebroplasty changes at L4 and L5. New L2 kyphoplasty changes. SC/C-arm FL for Kyphoplasty IMPRESSION: Images obtained for intraoperative purposes.
[2021-10-24] MEDS: sodium chloride 0.9% 1,000 ML 30 ML IV (09:02)
--- NOTE | 2021-10-24 09:15 | P.ANESUD_ITS ---
Pre-Anesthetic Update Pre-Anesthetic Assessment: Date of Surgery/Procedure: 10/24/21 Preop Charlette gnosis: L of 2 compression fracture Proposed Procedure: Operation Date: 10/24/21 10:10 Proposed Procedures p Kyphoplasty L[place] [address]40/S3200.01A(Not Applicable) - Alexis Conte, DO Any changes to Pre-Anesthetic Assessment?: No Last Intake: Intake Last Liquid Date 10/23/21 Last Liquid Time 18:00 Last Solid Date 10/23/21 Last Solid Time 18:00 Vitals: Temperature 97.6 F 10/24/21 08:55 Temperature Source Temporal Artery S can 10/24/21 08:55 Pulse Rate 73 10/24/21 08:55 Respiratory Rate 18 10/24/21 08:55 Blood Pressure 129/75 10/24/21 08:55 Blood Pressure Trista n 93 10/24/21 08:55 Pulse Oximetry 98 10/24/21 08:55 Oxygen Delivery Me thod 10/24/21 08:57 Exam: Pre-Anes Outpt Exam: alert, oriented x 3, clear to auscultation bilaterally and regular rate & rhythm Cardiac Studies: No Data to Display
[2021-10-24] MEDS: ceFAZolin 2,000 MG in sodium chloride 0.9% (plus) 50 ML 100 MG IV (10:32)
--- NOTE | 2021-10-24 10:35 | W.PM.OPSUD ---
Surgery/Procedure H&P Update DATE OF PROCEDURE: October 24, 2021 DATE H&P PERFORMED: 10/21/21 H&P UPDATE INFORMATION: I have reviewed H&P completed within last 30 days, I have examined patient prior to procedure and No changes to prior documentation PREOP DIAGNOSIS: L of 2 compression fracture PLANNED PROCEDURE: Operation Date: 10/24/21 10:10 Proposed Procedures p Kyphoplasty L2 [place]PRESS[place] FX 24952/S3200.01A(Not Applicable) - Alexis Conte DO
--- NOTE | 2021-10-24 11:44 | PM.OP ---
Operative Report Date of procedure: October 24, 2021 Pre-op diagnosis: Preop Diagnosis L2 wedge osteoporotic compression fracture Post-op diagnosis: same Procedure done: 1. L2 Kyphoplasty Surgeon: Alexis Conte Estimated blood loss (mL): 5 Procedure: L2 kyphoplasty Patient was brought to the operative suite after undergoing anesthesia was placed into the prone position. All areas impingement well-padded. Biplanar fluoroscopy was used. AP lateral fluoroscopy brought in identified the L2 compression fracture. Patient was then prepped and draped normal sterile fashion. Skin incision was made over the left pedicle. A awl was inserted. And then a drill was placed the drill was actually able to go down into the center position of the vertebrae therefore only had to go in on the left side. The balloon was then inflated and had good fill and elevation of the endplate. And then cement was inserted and had good spread across the superior undersurface of the endplate. AP lateral fluoroscopy ensured that the cement was in good position and fracture was in good position wounds were irrigated and closed with nylon suture. Sterile dressings were applied patient was transferred to the PACU in stable condition.
[2021-10-24] MEDS: HYDROcodone-acetaminophen 5-325 mg Tablet 1 TAB PO (12:15)
--- NOTE | 2021-10-24 12:20 | ANE.PACU2 ---
Inpatient post-anesthesia follow up: Airway intact: Yes Vital signs: Temperature 97.2 F Pulse Rate 86 Respiratory Rate 18 Blood Pressure 129/79 Pulse Oximetry 92 Oxygen Delivery Me thod Room Air Oxygen Flow Rate 2.0 Fraction of Inspir ed Oxygen Hydration adequate: Yes Nausea and vomiting: No Pain level: 1 Mental status: Baseline
== END 2021-10-24 12:44 | disposition home or self-care (01) ==
PROVIDERS: PCP Family Medicine; Visit Provider Orthopaedic Surgery
PROC: (CPT 22514; principal; 2021-10-24 10:00)
DX: S32.020A Wedge compression fracture of second lumbar vertebra, initial encounter for closed fracture (principal); X58.XXXA Exposure to other specified factors, initial encounter; J44.9 Chronic obstructive pulmonary disease, unspecified; Z86.718 Personal history of other venous thrombosis and embolism; K21.9 Gastro-esophageal reflux disease without esophagitis; E78.5 Hyperlipidemia, unspecified; F41.9 Anxiety disorder, unspecified; F32.A Depression, unspecified; Z79.01 Long term (current) use of anticoagulants; M81.0 Age-related osteoporosis without current pathological fracture; Z87.891 Personal history of nicotine dependence
CPT/HCPCS: 22514; 76000; J1100; J1200; J1885; J2250; J2405; J2704; J2710; J3010; J3490; J7030

== ENCOUNTER 2021-10-30 08:24 | Inpatient (IN) | payer MEDICARE, OTHER, SELFPAY ==
[2021-10-30] VITALS (14 sets, daily range): BP systolic 135–173; BP diastolic 75–94; PULSE 72–110; RESP 14–22; TEMP 36.7–37.3; O2SAT 91–99; BMI 29.0
--- NOTE | 2021-10-30 08:37 | W.ED.BACK ---
Documented by User: BROOKE Swanson 10/30/21 12:07 HPI - Back Pain/Injury General: Chief Complaint: Back Pain/Injury Stated Complaint: LOWER BACK PAIN Time Seen by Provider: 10/30/21 08:25 Source: patient and EMS Mode of arrival: EMS Limitations: no limitations History of Present Illness: Patient is a 71-year-old female presents to ED today with a complaint of lower back pain. Patient states she chronically has lower back pain. She has a history of an L4/L5 kyphoplasty. She recently underwent a kyphoplasty to her L2 by Dr. Conte approximately 6 days ago. Patient states she was having pain before the procedure and the kyphoplasty has not really alleviated any of this discomfort. She states since the surgery she is having back spasms and pain to the point where she feels like her legs are giving out causing it to be difficult to ambulate. She is having some paresthesias to her left leg. She denies saddle anesthesia or bowel/bladder incontinence/retention. Patient is on Coumadin. Her last INR was on Wednesday and was 1.2. Coumadin was stopped prior to surgery. MD elicited complaint: back pain Pertinent past history: prior back pain Onset (ago): day(s) Timing: constant Severity: severe Pain scale (0-10): 10 Similar Symptoms Previously: Yes Location: lumbar spine Radiation: buttocks and left leg below the knee Exacerbating factors: movement, sitting upright and walking Relieving factors: none Associated symptoms: Reports difficulty walking; Deny abdominal pain, chills, dysuria, fatigue, fever(s) or hematuria Work related injury: No Review of Systems Const: Denies: fever(s), chills, body aches, fatigue or malaise Card: Denies: chest pain Resp: Denies: dyspnea GI: Denies: abdominal pain : Denies: flank pain, dysuria or hematuria Musc: Reports: back pain; Denies: neck pain, extremity pain, extremity swelling, joint pain, joint swelling, joint redness, joint warmth or joint stiffness Skin/Breast: Denies: rash Neuro: Reports: numbness in extremities (L LE) and difficulty walking; Denies: headache(s) or lack of coordination PFSH ED PFSH: Medical History Anxiety and depression Asthma Crohn disease DVT (deep venous thrombosis) recurrent Dyslipidemia Encounter for long-term opiate analgesic use Factor V deficiency Low back pain of over 3 months duration KEY (nonalcoholic steatohepatitis) Opioid contract exists Osteoporosis Pain in thoracic spine Stable burst fracture of fifth lumbar vertebra Surgical History History of ankle surgery History of arthroplasty of right shoulder History of arthroscopy of left knee x3 History of back surgery 07/19/17 thoracic laminotomy, with placement of intraspinal epidureal paddle electrode arrays( [employer]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 Placement of subcutaneous programmable pulse generator ([employer]) History of basal cell carcinoma excision Nasal History of knee replacement, total 02/2015 History of lumpectomy of right breast 2007 History of partial hysterectomy 1986 History of total replacement of right shoulder joint 2007 and multiple surgeries Hx of eye surgery stent placed in left eye and cataracts Hx of tonsillectomy age 4 Family History Unknown Cancer Social History Smoking and tobacco status: former smoker Alcohol intake: former History of recent travel: No Physical Exam Const: COMMON NORMALS: no acute distress, patient oriented x3, no limitations and alert GENERAL APPEARANCE: cooperative ORIENTATION/CONSCIOUSNESS: Yes awake, Yes oriented to person, Yes oriented to place and Yes oriented to time HENMT: COMMON NORMALS: normocephalic and atraumatic HEAD & SCALP: normal to inspection, normocephalic and atraumatic Resp: COMMON NORMALS: normal respiratory effort and clear to auscultation bilaterally AUSCULTATION: clear to auscultation bilaterally Cardio: COMMON NORMALS: regular rate and regular rhythm RATE: regular rate RHYTHM: regular rhythm Back/Pelvis: THORACIC SPINE/UPPER BACK: No thoracic spinal tenderness, No paraspinal muscle tenderness and No paraspinal muscle spasm LUMBAR SPINE/LOWER BACK: Yes pain with ROM, Yes lumbar spinal tenderness, No paraspinal muscle spasm and No mass present SACROILIAC JOINTS: Yes SI joints normal SACRUM: no tenderness COCCYX: no tenderness OTHER: single stitch near L2 level from recent kyphoplasty-no redness, drainage present Extremity: COMMON NORMALS: normal to inspection, full ROM and capillary refill normal NARRATIVE EXTREMITY EXAM: chronically larger L LE when compared to R; previous ankle/knee trauma GENERAL: Yes normal exam except as noted Neuro: CHRISTIN COMA SCALE: document GCS findings [place] coma scale eye opening: Spontaneous [place] coma scale verbal response: Orientated [place] coma scale motor response: Obey commands Christin coma scale total score: 15 COMMON NORMALS: patient oriented x3, moves all extremities and no focal motor deficits SENSORIUM/ORIENTATION: Yes alert, Yes oriented to person, Yes oriented to place and Yes oriented to time MOTOR EXAM: 5/5 motor strength present throughout DEEP TENDON REFLEXES: Right patellar reflex intensity grade: 2+ and Left patellar reflex intensity grade: 2+ OTHER: reports decreased sensation to L LE when compared to R Course Consultations: Consultation #1: Dr. Conte-recommends hospitalization, MRI w/o contrast lumbar spine, and will plan on surgery tomorrow if her INR allows Consultation #2: Dr. Villar-accepts admission Vital Signs: Vital signs: Vital Signs Temperature 97.8 F 11/01/21 07:22 Pulse Rate 76 11/01/21 07:22 Respiratory Rate 16 11/01/21 07:22 Blood Pressure 169/83 11/01/21 07:22 Pulse Oximetry 94 11/01/21 07:22 Oxygen Delivery Me thod 11/01/21 07:22 MDM - Back Pain/Injury Medical Decision Making Patient here with worsening lower back pain. She underwent an L2 kyphoplasty by Dr. Conte 6 days ago[address] On her CT imaging she now has an osseous fragment at that is displaced into her thecal sac. She has retropulsion of her L2 by 7.6 mm. Thecal sac is being compressed with a diameter of [address] Conte who would like an MRI ordered and admit to hospitalist with plan for surgery tomorrow. Spoke to hospitalist Dr. Villar who accepts admit. Labs : 11/01/21 04:57 11/01/21 04:57 Radiology Impressions Lumbar Spine CT 10/30/21 08:51 IMPRESSION: 1. Interval kyphoplasty at the L2 level since 10/24/2021. 2. New osseous fragment from the posterior L2 vertebral body. This fragment extends posterior over a width of 18 mm and encroaches into the thecal sac with deformity and stenosis of the central canal and subarticular recesses. There is marked compression upon the thecal sac. 3. Comminuted fracture lines are noted within the L2 vertebral body and there is an acute fracture involving the midline of the posterior elements of L2 with fracture extending into the spinous process. 4. Remote compression fractures with kyphoplasty to L4 and L5. 5. Additional multilevel areas of stenoses and disc protrusions as above. Chest X-Ray 10/30/21 10:48 IMPRESSION: 1. Subsegmental atelectasis in the right middle lobe. 2. No acute infiltrate or other significant finding. Laboratory Results WBC 3.7 10^3/uL (4.0-10.0) L 10/30/21 11:20 RBC 3.19 10^6/uL (4.1-5.3) L 10/30/21 11:20 Hgb 10.4 g/dL (11.5-15.3) L 10/30/21 11:20 Hct 31.5 % (37.0-47.0) L 10/30/21 11:20 MCV 98.7 fl (81-99) 10/30/21 11:20 MCH 32.6 pg (28.0-34.0) 10/30/21 11:20 MCHC 33.0 g/dL (30.0-36.0) 10/30/21 11:20 RDW 16.8 % (12.1-15.1) H 10/30/21 11:20 Plt Count 291 10^3/cmm (130-400) 10/30/21 11:20 MPV 9.2 fL (7.4-10.4) 10/30/21 11:20 Neut % (Auto) 67.9 % 10/30/21 11:20 Lymph % (Auto) 18.2 % 10/30/21 11:20 Osborne % (Auto) 9.4 % 10/30/21 11:20 Eos % (Auto) 2.9 % 10/30/21 11:20 Baso % (Auto) 1.1 % 10/30/21 11:20 Neut # (Auto) 2.53 10^3/uL (1.8-7.7) 10/30/21 11:20 Lymph # (Auto) 0.7 10^3/uL (0.8-4.8) L 10/30/21 11:20 [place]borne # (Auto) 0.4 10^3/uL (0.2-0.9) 10/30/21 11:20 Eos # (Auto) 0.1 10^3/uL (0.0-0.8) 10/30/21 11:20 Baso # (Auto) 0.0 10^3/uL (0.0-0.1) 10/30/21 11:20 Nucleated RBC % (auto) 0 % 10/30/21 11:20 Nucleated RBCs # 0.0 /100WBC 10/30/21 11:20 PT 22.10 SECONDS (12.1-14.9) H 10/30/21 11:20 INR 1.89 (0.8-1.2) H 10/30/21 11:20 Sodium 133 mmol/L (136-145) L 10/30/21 11:20 Potassium 4.2 mmol/L (3.5-5.1) 10/30/21 11:20 Chloride 95 mmol/L (98-107) L 10/30/21 11:20 Carbon Dioxide 27 mmol/L (22-29) 10/30/21 11:20 Anion Gap 15.2 (5-19) 10/30/21 11:20 BUN 6 mg/dL (8-23) L 10/30/21 11:20 Creatinine 0.4 mg/dL (0.5-0.9) L 10/30/21 11:20 GFR Calculation 158.3 mL/min (90-130) H 10/30/21 11:20 Glucose 86 mg/dL (65-115) 10/30/21 11:20 Calculated Osmolality 273 mOsm/kg (285-295) L 10/30/21 11:20 Calcium 9.6 mg/dL (8.5-10.5) 10/30/21 11:20 Total Bilirubin 0.4 mg/dL (0.15-1.2) 10/30/21 11:20 AST 27 U/L (0-32) 10/30/21 11:20 ALT 21 U/L (0-33) 10/30/21 11:20 Alkaline Phosphatase 99 IU/L (35-105) 10/30/21 11:20 Total Protein 6.6 g/dL (6.6-8.7) 10/30/21 11:20 Albumin 3.3 g/dL (3.5-5.2) L 10/30/21 11:20 Globulin 3.3 g/dL (1.3-4.6) 10/30/21 11:20 Discharge Plan Discharge Patient Disposition: Admitted As Inpatient Admit Provider: Micaela Villar Clinical Impression: Closed L2 vertebral fracture, Lumbar disc prolapse with compression radiculopathy Condition: Stable Sign Out Sign Out Data: Patient Sign Out occurred on 10/30/21 at 12:18. Patient's care was discussed, and care was transferred from to Miller Dinero DO. Coding Level of Care Code ED Research Associate Policy for Chg Fwd Exam Detailed Documented by User: Miller Dinero DO 11/01/21 07:51 HPI - Back Pain/Injury General: Chief Complaint: Back Pain/Injury Stated Complaint: LOWER BACK PAIN Time Seen by Provider: 10/30/21 08:25 PFSH ED PFSH: Medical History Anxiety and depression Asthma Crohn disease DVT (deep venous thrombosis) recurrent Dyslipidemia Encounter for long-term opiate analgesic use Factor V deficiency Low back pain of over 3 months duration KEY (nonalcoholic steatohepatitis) Opioid contract exists Osteoporosis Pain in thoracic spine Stable burst fracture of fifth lumbar vertebra Surgical History History of ankle surgery History of arthroplasty of right shoulder History of arthroscopy of left knee x3 History of back surgery 07/19/17 thoracic laminotomy, with placement of intraspinal epidureal paddle electrode arrays( [employer]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 Placement of subcutaneous programmable pulse generator ([employer]) History of basal cell carcinoma excision Nasal History of knee replacement, total 02/2015 History of lumpectomy of right breast 2006 History of partial hysterectomy 1986 History of total replacement of right shoulder joint 2007 and multiple surgeries Hx of eye surgery stent placed in left eye and cataracts Hx of tonsillectomy age 4 Family History Unknown Cancer Social History Smoking and tobacco status: former smoker Alcohol intake: former History of recent travel: No Physical Exam Neuro: CHRISTIN COMA SCALE: document GCS findings Christin coma scale total score: 15 Course Vital Signs: Vital signs: Vital Signs Temperature 97.8 F 11/01/21 07:22 Pulse Rate 76 11/01/21 07:22 Respiratory Rate 16 11/01/21 07:22 Blood Pressure 169/83 11/01/21 07:22 Pulse Oximetry 94 11/01/21 07:22 Oxygen Delivery Me thod 11/01/21 07:22 MDM - Back Pain/Injury Medical Decision Making Patient here with worsening lower back pain. She underwent an L2 kyphoplasty by Dr. Conte 6 days ago[address] On her CT imaging she now has an osseous fragment at that is displaced into her thecal sac. She has retropulsion of her L2 by 7.6 mm. Thecal sac is being compressed with a diameter of [address] Conte who would like an MRI ordered and admit to hospitalist with plan for surgery tomorrow. Spoke to hospitalist Dr. Villar who accepts admit. Chart reviewed and patient discussed with midlevel. Agree with assessment and plan. Patient seen and examined. Orders written. Labs : 11/01/21 04:57 11/01/21 04:57 Radiology Impressions Lumbar Spine CT 10/30/21 08:51 IMPRESSION: 1. Interval kyphoplasty at the L2 level since 10/24/2021. 2. New osseous fragment from the posterior L2 vertebral body. This fragment extends posterior over a width of 18 mm and encroaches into the thecal sac with deformity and stenosis of the central canal and subarticular recesses. There is marked compression upon the thecal sac. 3. Comminuted fracture lines are noted within the L2 vertebral body and there is an acute fracture involving the midline of the posterior elements of L2 with fracture extending into the spinous process. 4. Remote compression fractures with kyphoplasty to L4 and L5. 5. Additional multilevel areas of stenoses and disc protrusions as above. Chest X-Ray 10/30/21 10:48
--- NOTE | 2021-10-30 08:51 | CT_ITS ---
WS: [id number] CT LUMBAR SPINE, noncontrast. HISTORY: back pain, recent kyphoplasty, spasms, trouble ambulating TECHNIQUE: Contiguous 2.5 mm axial imaging are performed. Sagittal and coronal reformats are submitte d and reviewed. All CT scans at [facility] use at least one of these dose optimization techni ques: automated exposure control; mA and/or kV adjustment per patient size (includes targeted exams w here dose is matched to clinical indication); or iterative reconstruction. IV contrast: None DLP: 769.58 mGy.cm COMPARISON: 11/15/2017, 10/11/2021 and 10/22/2021 New kyphoplasty at L2 as seen on a prior image from 10/24/2021. There is now an osseous fragment from the posterior L2 vertebral body which is displaced into the thecal sac. This fragment extends posteri or from the L2 vertebral body over a width of 18 mm. Deformity on the ventral thecal sac with narrowi ng of the subarticular recesses. Retropulsion by 7.6 mm of the L2 vertebral body fragment. There is a comminuted fracture throughout the L2 vertebral body with kyphoplasty now present. Also noted is a n ondisplaced fracture extending through the midline of the posterior elements extending into the spino us process. Thecal sac is being compressed to a diameter of 5 mm. Remote compression fractures at L4 and L5 with kyphoplasty. L1-2: Mild annular disc bulge. See above report for further details. L2-3: Mild disc bulging and a small LEFT foraminal disc protrusion. Mild bilateral foraminal stenosis . L3-4: Mild facet disease and annular disc bulging. Moderate size RIGHT foraminal disc protrusion. Bul ging extends extraforaminal on the RIGHT. Mild central and bilateral subarticular recess and moderate RIGHT foraminal stenosis. L4-5: Diffuse asymmetric disc bulging with mild central and foraminal stenosis. Bilateral subarticula r recess stenosis. L5-S1: Mild disc bulging. Bilateral mild foraminal stenosis, greatest on the RIGHT. Bilateral facet j oint arthritis. Bones are osteopenic. Scattered calcification in aorta. Prior cholecystectomy. CT/CT lumbar spine wo con* [id number] IMPRESSION: 1. Interval kyphoplasty at the L2 level since 10/24/2021. 2. New osseous fragment from the posterior L2 vertebral body. This fragment ex tends posterior over a width of 18 mm and encroaches into the thecal sac with d eformity and stenosis of the central canal and subarticular recesses. There is marked compression upon the thecal sac. 3. Comminuted fracture lines are noted within the L2 vertebral body and there is an acute fracture involving the midline of the posterior elements of L2 with fracture extending into the spinous process. 4. Remote compression fractures with kyphoplasty to L4 and L5. 5. Additional multilevel areas of stenoses and disc protrusions as above.
[2021-10-30] MEDS: ondansetron 2 mg/ML SDV 2 mL 4 MG IVP (09:08)
[2021-10-30] MEDS: morphine 4 mg/mL SDV 1 mL IVP ×3 (09:18→21:53)
[2021-10-30] MEDS: orphenadrine 30 mg/mL Inj 2 mL 60 MG IV (09:21)
--- NOTE | 2021-10-30 10:48 | XR_ITS ---
WS: [id number] Exam: XR chest 1V portable [id number] Date/Time of Exam: 10/30/2021 10:48 AM Reason For Exam: surg clearance Comparison 01/25/2009. Subsegmental atelectasis in the right middle lobe. No acute infiltrate seen. Normal cardiomediastinal silhouette. Elevated right diaphragm with large bowel interposed beneath the diaphragm. Neurostimula tor leads are seen in the lower thoracic region. Bilateral shoulder prostheses are noted. XR/XR chest 1V portable [id number] IMPRESSION: 1. Subsegmental atelectasis in the right middle lobe. 2. No acute infiltrate or other significant finding.
[2021-10-30] MEDS: HYDROmorphone 1 mg/mL INJ 1 mL 0.5 MG IVP (10:49)
--- NOTE | 2021-10-30 10:49 | ECG_ITS ---
[facility] Test Date: 2021-10-30 Pat Name: Carolyn Bedoya Department: Room: Gender: Female Endoscopy Support Specialist: : 1950 Requested By: Elle Hawkins Order Number: [id number] Rohit MD: Tyra Elliott M.D. Measurements Intervals [place] Rate: 74 P: 71 AR: 174 QRS: 16 QRSD: 90 T: 73 QT: 373 QTc: 414 Interpretive Statements SINUS RHYTHM POSSIBLE LEFT ATRIAL ENLARGEMENT [-0.1mV P-WAVE IN V1/V2] SEPTAL MYOCARDIAL INFARCTION , PROBABLY OLD [40+ ms Q WAVE IN V1/V2] Compared to ECG 07/16/2017 11:31:19 Myocardial infarct finding now present Ectopic atrial rhythm no longer present Electronically Signed On 10-30-2021 21:36:58 CDT by Tyra Elliott M.D. [id number]
[2021-10-30 11:31] LABS: Basophils % 1.1 %; Eosinophils # 0.1 10^3/uL (0.0-0.8); Eosinophils % 2.9 %; Hematocrit 31.5 % (37.0-47.0); Hemoglobin 10.4 g/dL (11.5-15.3); Lymphocytes # 0.7 10^3/uL (0.8-4.8); Lymphocytes % 18.2 %; Mean Corpuscular Hemoglobin 32.6 pg (28.0-34.0); Mean Corpuscular Volume 98.7 fl (81-99); Mean Platelet Volume 9.2 fL (7.4-10.4); Monocytes # 0.4 10^3/uL (0.2-0.9); Monocytes % 9.4 %; Neutrophils # 2.53 10^3/uL (1.8-7.7); Neutrophils % 67.9 %; Nucleated Red Blood Cells % 0 %; Platelet Count 291 10^3/cmm (130-400); Red Blood Count 3.19 10^6/uL (4.1-5.3); Red Cell Distribution Width 16.8 % (12.1-15.1); White Blood Count 3.7 10^3/uL (4.0-10.0)
[2021-10-30 11:51] LABS: Alanine Aminotransferase 21 U/L (0-33); Albumin Level 3.3 g/dL (3.5-5.2); Alkaline Phosphatase 99 IU/L (35-105); Aspartate Amino Transferase 27 U/L (0-32); Blood Urea Nitrogen 6 mg/dL (8-23); Calcium 9.6 mg/dL (8.5-10.5); Carbon Dioxide 27 mmol/L (22-29); Chloride 95 mmol/L (98-107); Globulin 3.3 g/dL (1.3-4.6); Glomerular Filtration Rate 158.3 mL/min (90-130); Glucose 86 mg/dL (65-115); Osmolality Calculated 273 mOsm/kg (285-295); Sodium 133 mmol/L (136-145); Total Bilirubin 0.4 mg/dL (0.15-1.2); Total Protein 6.6 g/dL (6.6-8.7)
[2021-10-30 11:53] LABS: Anion Gap 15.2 (5-19); Potassium 4.2 mmol/L (3.5-5.1)
[2021-10-30 12:04] LABS: INR 1.89 (0.8-1.2)
--- NOTE | 2021-10-30 12:20 | P.HP_ITS ---
Providers/Chief Complaint Primary Care Provider: Mckenna Rubin DO Chief Complaint: LOWER BACK PAIN History of Present Illness Carolyn Bedoya is a 71 year old female who is presenting today with chief complaint of not being able to walk. Please note she had L2 kyphoplasty by Dr. Conte for L2 wedge osteoporotic compression fracture on 10/24. Patient is complaining of pain and not been able to walk. Patient is attributing not been able to walk because excruciating pain she called paramedics to get out of bed yesterday but today her pain was worse. Because excruciating pain CT scan of lumbar spine was done in the ER which showed 1.? Interval kyphoplasty at the L2 level since 10/24/2021. 2.? New osseous fragment from the posterior L2 vertebral body. This fragment extends posterior over a width of 18 mm and encroaches into the thecal sac with deformity and stenosis of the central canal and subarticular recesses. There is marked compression upon the thecal sac. 3.? Comminuted fracture lines are noted within the L2 vertebral body and there is an acute fracture involving the midline of the posterior elements of L2 with fracture extending into the spinous process. 4.? Remote compression fractures with kyphoplasty to L4 and L5. 5.? Additional multilevel areas of stenoses and disc protrusions as above. 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 Conte has requested hospital service to admit the patient. I would not reverse INR because of her factor V Leyden mutation, MRI has been requested, we will keep her n.p.o. after midnight start IV fluid hydration and manage her pain we will place Nava catheter Review of Systems Const: Denies: fever(s) Eyes: Denies: change in vision ENMT: Denies: throat pain Card: Denies: chest pain Resp: Denies: dyspnea GI: Denies: abdominal pain : Denies: flank pain Musc: Reports: back pain, joint stiffness and limited range of motion Skin/Breast: Denies: rash Neuro: Denies: headache(s) Psych: Reports: anxiety Endo: Denies: polyuria Louie/Lymph: Denies: easy bruising All/Imm: Denies: urticaria Medications/Allergies Home Medications Medication Instructions Recorded Confirmed Last Taken Type albuterol sulfate 90 mcg/actuation 1 inh inhalation PRN PRN Shortness 07/25/19 10/23/21 Unknown History aerosol inhaler (Ventolin HFA) Of Breath denosumab 60 mg/mL subcutaneous 60 mg SUBCUT .every 6 months 07/25/19 10/23/21 02/19/21 History syringe (Prolia) lactulose 10 gram/15 mL oral syrup 10 gm PO DAILY 07/25/19 10/24/21 10/22/21 History tramadol 50 mg tablet 50 mg PO .1-2 tab TID PRN pain 07/25/19 10/24/21 10/24/21 08:00 Rx #180 tabs cetirizine 10 mg capsule (All Day 10 mg PO DAILY PRN Allergy Symptoms 11/12/20 10/24/21 10/08/21 History Allergy (cetirizine)) azathioprine 50 mg tablet 100 mg PO BID 01/14/21 10/24/21 10/23/21 History calcium carbonate 600 mg calcium 600 mg PO DAILY #90 tabs 03/07/21 10/24/21 10/23/21 Rx (1,500 mg) tablet (Calcium) cholecalciferol (vitamin D3) 125 125 mcg PO DAILY #90 caps 03/07/21 10/24/21 10/23/21 Rx mcg (5,000 unit) capsule brimonidine 0.2 % eye drops 1 drp ophthalmic (eye) .COMPLEX 90 03/10/21 10/24/21 10/23/21 Rx days #30 mL warfarin 10 mg tablet 10 mg PO .COMPLEX 90 days #132 tabs 05/15/21 10/23/21 10/20/21 Rx [id number] 120 mcg-lutein 1 tab PO DAILY 08/06/21 10/24/21 10/08/21 History 150 mcg-herb 37.5 mg chewable tablet (Alive Women's 50 Plus Gummy) nortriptyline 25 mg capsule 25 mg PO BEDTIME #90 caps 09/23/21 10/24/21 10/23/21 Rx aripiprazole 2 mg tablet 2 mg PO DAILY #90 tabs 10/16/21 10/24/21 10/23/21 Rx atorvastatin 10 mg tablet 10 mg PO DAILY #90 tabs 10/16/21 10/24/21 10/23/21 Rx tizanidine 4 mg capsule 4 mg PO Q8H PRN muscle spasticity 10/16/21 10/24/21 10/23/21 Rx #30 caps citalopram 40 mg tablet 40 mg PO DAILY 10/23/21 10/24/21 10/23/21 History latanoprost 0.005 % eye drops 1 drp ophthalmic (eye) BEDTIME 10/23/21 10/24/21 10/23/21 History omeprazole 40 mg capsule,delayed 40 mg PO DAILY 10/23/21 10/24/21 10/23/21 History release hydrocodone 5 mg-acetaminophen 325 1 - 2 tab PO .Q4-6H #40 tabs 10/24/21 Unknown Rx mg tablet cyclobenzaprine 10 mg tablet 10 mg PO TID PRN muscle spasm #60 10/28/21 Unknown Rx tabs Allergies Allergy/AdvReac Type Severity Reaction Status Date / Time No Known Allergies Allergy Verified 10/24/21 08:45 PFSH Acute PFSH: Medical History Anxiety and depression Asthma Crohn disease DVT (deep venous thrombosis) recurrent Dyslipidemia Encounter for long-term opiate analgesic use Factor V deficiency Low back pain of over 3 months duration KEY (nonalcoholic steatohepatitis) Opioid contract exists Osteoporosis Pain in thoracic spine Stable burst fracture of fifth lumbar vertebra Surgical History History of ankle surgery History of arthroplasty of right shoulder History of arthroscopy of left knee x3 History of back surgery 07/19/17 thoracic laminotomy, with placement of intraspinal epidureal paddle electrode arrays( [employer] artisan, 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 Placement of subcutaneous programmable pulse generator ([employer]) History of basal cell carcinoma excision Nasal History of knee replacement, total 02/2015 History of lumpectomy of right breast 2007 History of partial hysterectomy 1986 History of total replacement of right shoulder joint 2007 and multiple surgeries Hx of eye surgery stent placed in left eye and cataracts Hx of tonsillectomy age 4 Family History Unknown Cancer Social History Smoking and tobacco status: former smoker Alcohol intake: former History of recent travel: No Vitals/I&O/Wt Last Vital Signs Temp 98.0 F 10/30/21 08:26 Pulse 82 10/30/21 12:00 Resp 16 10/30/21 12:00 BP 157/82 10/30/21 12:00 Pulse Ox 93 10/30/21 12:00 O2 Del Method 10/30/21 12:00 Weight last 48 hrs Weight 83.915 kg Physical Exam Narrative: Skin shows supportive keratosis S1, S2 Saturating well on room air Thin lean elderly female Hemodynamically stable No audible stridor or wheezing Currently on room air Abdomen soft Data : 10/30/21 11:20 10/30/21 11:20 A&P Assessment and plan (1) Closed L2 vertebral fracture: Status: Acute Qualifiers: Encounter type: subsequent encounter Fracture morphology: unspecified fracture morphology (2) Lumbar disc prolapse with compression radiculopathy: Status: Acute (3) Compression fracture of L2: Status: Acute Qualifiers: Encounter type: initial encounter Qualified Code(s): S32.020A - Wedge compression fracture of second lumbar vertebra, initial encounter for closed fracture (4) Nicotine dependence, cigarettes, with unspecified nicotine-induced disorders: Status: Acute (5) History of Crohn's disease: Status: Acute (6) 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 after midnight Dr. Conte has been consulted Factor V Leyden mutation patient is on Coumadin INR 1.8 I would not reverse INR as she is prone to development of clot Would use SCDs for now Recheck INR tomorrow morning GERD: Continue Protonix Full code N.p.o. 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
[2021-10-30 13:14] LABS: Urine Appearance Clear (CLEAR); Urine Color Yellow (Yellow); pH Urine 8 (5-7)
[2021-10-30 13:15] LABS: Add Urine Microscopic? YES; Bilirubin Urine Neg (Negative); Blood Urine 2+ (Negative); Glucose Urine UA Norm (Normal); Ketones Urine Negative (Negative); Leukocyte Esterase Urine 1+ (Negative); Nitrate Urine Negative (Negative); Protein Urine Neg (Negative); Urobilinogen Urine Norm (Negative)
[2021-10-30 13:16] LABS: Bacteria Urine TRACE /hpf; RBC Urine RARE /hpf (0-2); Squamous Epithelial Cell Urine RARE /hpf (0-5); WBC Urine RARE /hpf (0-5)
--- NOTE | 2021-10-30 13:56 | PC.NURSE ---
Report called to ANTONY Benton
--- NOTE | 2021-10-30 14:11 | PM.CONSULT ---
Providers/Reason For Consult Consulting Physician/Specialty*: Ortho Spine Reason for Consult*: Low Back Pain Attending Physician: Micaela Villar MD Primary Care Provider: Mckenna Rubin DO History of Present Illness History of Present Illness Carolyn Bedoya is a 71 year old female who presented to [facility] emergency room with continued back pain. She describes weakness in both legs really been giving out on her. The pain is been ongoing progressively getting worse over the last few weeks. She had a kyphoplasty procedure at L2 approximately 6 days ago that has not given her the kind of relief she obtained with the kyphoplasty's at L4 and L5. She denies any falls denies any new injuries to her back pain has been progressively getting worse. She describes sharp stabbing pain in the back with weakness numbness down both legs. She denies any loss of bowel or bladder control denies any saddle anesthesia. Rest is giving her some short-term relief but any attempts to set up or walk make her symptoms much worse. An extensive review of the patient's past medical history, surgical history, allergies, medications, family history, social history, and review of systems was completed Review of Systems Const: Denies: fever(s) Eyes: Denies: change in vision ENMT: Denies: throat pain Card: Denies: chest pain Resp: Denies: dyspnea GI: Denies: abdominal pain : Denies: flank pain Musc: Reports: back pain, joint stiffness and limited range of motion Skin/Breast: Denies: rash Neuro: Denies: headache(s) Psych: Reports: anxiety Endo: Denies: polyuria Louie/Lymph: Denies: easy bruising All/Imm: Denies: urticaria Medications/Allergies Home Medications Medication Instructions Recorded Confirmed Last Taken Type albuterol sulfate 90 mcg/actuation 1 inh inhalation PRN PRN Shortness 07/25/19 10/30/21 Unknown History aerosol inhaler (Ventolin HFA) Of Breath denosumab 60 mg/mL subcutaneous 60 mg SUBCUT .every 6 months 07/25/19 10/30/21 02/19/21 History syringe (Prolia) cetirizine 10 mg capsule (All Day 10 mg PO DAILY PRN Allergy Symptoms 11/12/20 10/30/21 10/29/21 History Allergy (cetirizine)) azathioprine 50 mg tablet 100 mg PO BID 01/14/21 10/30/21 10/29/21 History calcium carbonate 600 mg calcium 600 mg PO DAILY #90 tabs 03/07/21 10/30/21 10/29/21 Rx (1,500 mg) tablet (Calcium) cholecalciferol (vitamin D3) 125 125 mcg PO DAILY #90 caps 03/07/21 10/30/21 10/29/21 Rx mcg (5,000 unit) capsule brimonidine 0.2 % eye drops 1 drp ophthalmic (eye) .COMPLEX 90 03/10/21 10/30/21 10/29/21 Rx days #30 mL warfarin 10 mg tablet 10 mg PO .COMPLEX 90 days #132 tabs 05/15/21 10/30/21 10/29/21 Rx [id number]-[id number] 120 mcg-lutein 1 tab PO DAILY 08/06/21 10/30/21 10/29/21 History 150 mcg-herb 37.5 mg chewable tablet (Alive Women's 50 Plus Gummy) nortriptyline 25 mg capsule 25 mg PO BEDTIME #90 caps 09/23/21 10/30/21 10/29/21 Rx aripiprazole 2 mg tablet 2 mg PO DAILY #90 tabs 10/16/21 10/30/21 10/29/21 Rx atorvastatin 10 mg tablet 10 mg PO DAILY #90 tabs 10/16/21 10/30/21 10/29/21 Rx tizanidine 4 mg capsule 4 mg PO Q8H PRN muscle spasticity 10/16/21 10/30/21 10/23/21 Rx #30 caps citalopram 40 mg tablet 40 mg PO DAILY 10/23/21 10/30/21 10/29/21 History latanoprost 0.005 % eye drops 1 drp ophthalmic (eye) BEDTIME 10/23/21 10/30/21 10/29/21 History omeprazole 40 mg capsule,delayed 40 mg PO DAILY 10/23/21 10/30/21 10/29/21 History release hydrocodone 5 mg-acetaminophen 325 1 - 2 tab PO .Q4-6H #40 tabs 10/24/21 10/30/21 10/29/21 Rx mg tablet cyclobenzaprine 10 mg tablet 10 mg PO TID PRN muscle spasm #60 10/28/21 10/30/21 10/29/21 Rx tabs diclofenac sodium 75 mg 75 mg PO Q12H PRN Pain 10/30/21 10/30/21 Unknown History tablet,delayed release lactulose 10 gram/15 mL oral 10 g PO DAILY 10/30/21 10/30/21 10/29/21 History solution warfarin 2.5 mg tablet 2.5 mg PO DAILY 10/30/21 10/30/21 10/29/21 History warfarin 5 mg tablet 5 mg PO DAILY 10/30/21 10/30/21 10/29/21 History Allergies Allergy/AdvReac Type Severity Reaction Status Date / Time No Known Allergies Allergy Verified 10/30/21 14:03 PFSH Acute PFSH: Medical History Anxiety and depression Asthma Crohn disease DVT (deep venous thrombosis) recurrent Dyslipidemia Encounter for long-term opiate analgesic use Factor V deficiency Low back pain of over 3 months duration KEY (nonalcoholic steatohepatitis) Opioid contract exists Osteoporosis Pain in thoracic spine Stable burst fracture of fifth lumbar vertebra Surgical History History of ankle surgery History of arthroplasty of right shoulder History of arthroscopy of left knee x3 History of back surgery 07/19/17 thoracic laminotomy, with placement of intraspinal epidureal paddle electrode arrays( [employer] artisan, 70cm, 2x8 director medical surgical). Placement of subcutaneous programmable pulse generator ([employer]) History of basal cell carcinoma excision Nasal History of knee replacement, total 02/2015 History of lumpectomy of right breast 2006 History of partial hysterectomy 1986 History of total replacement of right shoulder joint 2007 and multiple surgeries Hx of eye surgery stent placed in left eye and cataracts Hx of tonsillectomy age 4 Family History Unknown Cancer Social History Smoking and tobacco status: former smoker Alcohol intake: former History of recent travel: No Vitals/I&O/Wt Last Vital Signs Temp 98.0 F 10/30/21 08:26 Pulse 80 10/30/21 12:00 Resp 14 10/30/21 12:00 BP 155/79 10/30/21 12:00 Pulse Ox 91 10/30/21 12:00 O2 Del Method 10/30/21 12:00 Weight last 48 hrs Weight 185 lb Physical Exam Narrative: She is alert orient x3 she has good general appearance normal mood normal affect. No obvious distress. Patient was evaluated in ER bay 7. Palpable low back pain. She is weak diffusely in both lower extremities. She has incisions in the upper lumbar region from recent kyphoplastyand Spinal Cord Stimulator placement. She is able to flex and extend both legs slowly. She wiggles her toes they are warm to the touch. Dorsalis pedis and posterior tib pulses are weak but palpable. Calves are supple no medial thigh tenderness. Negative logroll bilaterally. Calves are supple. Moves both upper extremities without any problems 5 or 5 strength normal sensation in both arms no palpable pain about the cervical spine or upper extremities. Radial pulses are palpable. Normal station light touch. HENMT: COMMON NORMALS: normocephalic and atraumatic HEAD & SCALP: normocephalic and atraumatic Resp: COMMON NORMALS: normal respiratory effort Cardio: COMMON NORMALS: regular rate and regular rhythm RATE: regular rate RHYTHM: regular rhythm GI: COMMON NORMALS: Soft to palpation and non-tender PALPATION: Yes Soft to palpation : COMMON NORMALS: Yes no CVA tenderness BLADDER/KIDNEY EXAM: Yes no CVA tenderness Back/Pelvis: COMMON NORMALS: no CVA tenderness Psych: COMMON NORMALS: mental status grossly normal and cooperative Data : 10/30/21 11:20 10/30/21 11:[address]: My impression: ? Radiologist's impression: Lumbar Spine CT? 10/30/21 08:51 IMPRESSION: 1.? Interval kyphoplasty at the L2 level since 10/24/2021. 2.? New osseous fragment from the posterior L2 vertebral body. This fragment extends posterior over a width of 18 mm and encroaches into the thecal sac with deformity and stenosis of the central canal and subarticular recesses. There is marked compression upon the thecal sac. 3.? Comminuted fracture lines are noted within the L2 vertebral body and there is an acute fracture involving the midline of the posterior elements of L2 with fracture extending into the spinous process. 4.? Remote compression fractures with kyphoplasty to L4 and L5. 5.? Additional multilevel areas of stenoses and disc protrusions as above. ? A&P Assessment and plan (1) Closed L2 vertebral fracture: Discussed at length with the patient treatment options which involve stabilizing her fracture with decompression. Dr. Conte proposes a T11-L4 fusion with decompression of the retropulsed bone at L2. Keep her n.p.o. after midnight. Plan to stabilize 10/31/2021. 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
[2021-10-30] MEDS: ceFAZolin 2,000 MG in sodium chloride 0.9% (plus) 50 ML 100 MG IV (15:48)
[2021-10-30] MEDS: sodium chloride 0.9% 1,000 ML 75 ML IV (16:30)
[2021-10-30] MEDS: HYDROcodone-acetaminophen 5-325 mg Tablet 1 TAB PO (19:27)
[2021-10-31] VITALS (10 sets, daily range): BP systolic 135–156; BP diastolic 76–80; PULSE 74–98; RESP 12–18; TEMP 36.7–36.9; O2SAT 90–95
[2021-10-31] MEDS: HYDROcodone-acetaminophen 5-325 mg Tablet 1 TAB PO ×2 (04:13→20:32)
[2021-10-31] MEDS: sodium chloride 0.9% 1,000 ML 75 ML IV (05:06)
[2021-10-31] MEDS: morphine 4 mg/mL SDV 1 mL IVP ×4 (05:06→22:32)
[2021-10-31 05:40] LABS: Eosinophils # 0.2 10^3/uL (0.0-0.8); Eosinophils % 5.3 %; Hemoglobin 10.1 g/dL (11.5-15.3); Lymphocytes # 0.8 10^3/uL (0.8-4.8); Mean Corpuscular HGB Conc 33.7 g/dL (30.0-36.0); Mean Corpuscular Hemoglobin 32.8 pg (28.0-34.0); Mean Corpuscular Volume 97.4 fl (81-99); Monocytes # 0.4 10^3/uL (0.2-0.9); Monocytes % 10.9 %; Neutrophils # 2.49 10^3/uL (1.8-7.7); Neutrophils % 63.3 %; Nucleated Red Blood Cells % 0 %; Platelet Count 271 10^3/cmm (130-400); Red Blood Count 3.08 10^6/uL (4.1-5.3); Red Cell Distribution Width 16.9 % (12.1-15.1); White Blood Count 3.9 10^3/uL (4.0-10.0)
[2021-10-31 05:57] LABS: Anion Gap 11.3 (5-19); Blood Urea Nitrogen 8 mg/dL (8-23); Calcium 9.3 mg/dL (8.5-10.5); Carbon Dioxide 27 mmol/L (22-29); Chloride 100 mmol/L (98-107); Glomerular Filtration Rate 158.3 mL/min (90-130); Glucose 88 mg/dL (65-115); Osmolality Calculated 276 mOsm/kg (285-295); Potassium 4.3 mmol/L (3.5-5.1); Sodium 134 mmol/L (136-145)
--- NOTE | 2021-10-31 06:49 | W.PM.OPSUD ---
Surgery/Procedure H&P Update DATE OF PROCEDURE: October 31, 2021 DATE H&P PERFORMED: 10/30/21 H&P UPDATE INFORMATION: I have reviewed H&P completed within last 30 days, I have examined patient prior to procedure and No changes to prior documentation PREOP DIAGNOSIS: L of 2 compression fracture PLANNED PROCEDURE: Operation Date: 10/31/21 14:55 Proposed Procedures p Spinal Fusion Posterior Spinal Fusion T11-L4(Not Applicable) - Alexis Conte DO s Lumbar Laminectomy L1-2(Not Applicable) - Alexis Conte DO
--- NOTE | 2021-10-31 07:13 | P.PN_ITS ---
Subjective Subjective: Is having severe pain in her back cannot move out of bed. At this point we are planning on doing surgery today however her INR is currently 1.8. This point I will plan on pushing the surgery to Wednesday. Vitals/I&O/Wt Last Vital Signs Temp 98.1 F 10/31/21 03:00 Pulse 80 10/31/21 03:00 Resp 16 10/31/21 05:06 BP 142/80 10/31/21 03:00 Pulse Ox 95 10/31/21 03:00 O2 Del Method 10/30/21 22:35 10/30/21 10/31/21 10/31/21 22:59 06:59 14:59 Intake Total 530 / 530 953.75 / 1483.75 Output Total 1000 / 1000 3020 / 4020 Balance -470 / -470 -2066.25 / -2536.25 Weight last 48 hrs Weight 185 lb Weight 185 lb Physical Exam Narrative: Some weakness. Urinary Catheter Management: Nava: Cath Placed During This Visit: yes Reason for Continuing Indwelling Catheter: Perioperative Use in Selected Surgeries Urinary Catheter Date of Insertion: 10/30/21 Urinary Catheter Time of Insertion: 16:30 Data : 10/31/21 05:31 10/31/21 05:31 A&P Assessment and plan (1) Closed L2 vertebral fracture: Patient has L2 vertebral fracture. She had a kyphoplasty and subsequently developed burst fracture. At this point my plan is to do a T11-L4 posterior spine fusion decompression. I was planning on doing that today however INR was 1.8 like to get her INR down to least below 1.2-1. With her hemoglobin at only 10 the likelihood of her needing blood will be sniffily higher if I do surgery today. And she may develop an epidural hematoma. My plan is to do surgery on Wednesday. 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
[2021-10-31] MEDS: sennosides-docusate Tablet 1 TAB PO (09:06)
[2021-10-31] MEDS: pantoprazole DR 40 mg Tablet PO (09:06)
--- NOTE | 2021-10-31 09:58 | PC.CHAP ---
Pastoral Care Encounter/Spiritual Assessment Type of Contact [] Declined veneer sheet repairer visit [] Patient/Family/Request visit [] Outpatient visit [] Follow-up visit [] Physician referral [] Code/Alert [x] Routine visit [] Staff referral [] Actively dying [] Patient sleeping [] Family support [] [] Out of room [] Palliative care [] [] Receiving care in room [] Pre-surgical visit [] Trauma [] Long length of stay [] ICU visit [] Other: Relational/Emotional Strength [x] Patient feels connected with others/family/visitors/staff [] Distress [] Loneliness/isolation [] Abandonment Spirituality of Patient [x] Person of Nida [] Attends Jain of their Nida [x] Believes in Prayer [] Reads Bible or Voodoo materials [] There are Spiritual issues to be addressed Conditioner Tumbler Operator Interventions [x] Prayer []x Active listening [x] Non-anxious presence [] Spiritual/emotional support [] Crisis/trauma care [] Spiritual counseling [] Bereavement support [] Provided bereavement packet [] Provided Bible/devotional materials [] Provided toy/stuffed animal, coloring book to patient or family member [] Provided Communion [] Anointing/[place] [] Salvation [x] Completed spiritual assessment [] Other: Impact on Illness or Injury [] Angry [] Fearful [] Anxious [] Often cries [] Exhaustion [] Unable to work [] Unable to attend adventism [] Unable to walk/stand [] Unable to read [] Unable to drive [] Unable to eat/drink [] Unable to sleep [] Unable to be with family [] Patient intubated [] Other: Summary Time spent with patient 10 min
--- NOTE | 2021-10-31 11:14 | PM.PN ---
Subjective Subjective: INR 1.8 surgery postponed till Wednesday Patient is not in pain at rest Hemoglobin 10 Hemodynamically stable Vitals/I&O/Wt Last Vital Signs Temp 98.1 F 10/31/21 08:00 Pulse 74 10/31/21 08:00 Resp 18 10/31/21 09:06 BP 156/80 10/31/21 08:00 Pulse Ox 93 10/31/21 08:00 O2 Del Method 10/31/21 08:00 10/30/21 10/31/21 10/31/21 22:59 06:59 14:59 Intake Total 530 / 530 953.75 / 1483.75 420 / 420 Output Total 1000 / 1000 3020 / 4020 Balance -470 / -470 -2066.25 / -2536.25 420 / 420 Weight last 48 hrs Weight 83.915 kg Weight 83.915 kg Physical Exam Narrative: Patient is laying supine Nava catheter in place S1, S2 Abdomen soft Surgery well on room air No active pain Pleasant cooperative Nonfocal neuro exam Urinary Catheter Management: Nava: Cath Placed During This Visit: yes Reason for Continuing Indwelling Catheter: Perioperative Use in Selected Surgeries Urinary Catheter Date of Insertion: 10/30/21 Urinary Catheter Time of Insertion: 16:30 Data : 10/31/21 05:31 10/31/21 05:31 A&P Assessment and plan (1) Spinal stenosis, lumbar region, with neurogenic claudication: Status: Acute (2) Closed L2 vertebral fracture: Status: Acute Qualifiers: Encounter type: subsequent encounter Fracture morphology: unspecified fracture morphology (3) Lumbar disc prolapse with compression radiculopathy: Status: Acute (4) Nicotine dependence, cigarettes, with unspecified nicotine-induced disorders: Status: Acute (5) Compression fracture of L2: Status: Acute Qualifiers: Encounter type: initial encounter Qualified Code(s): S32.020A - Wedge compression fracture of second lumbar vertebra, initial encounter for closed fracture (6) Diverticulosis large intestine w/o perforation or abscess w/bleeding: Status: Chronic (7) History of Crohn's disease: Status: Acute (8) Current use of nursing home anticoagulation: Status: Chronic (9) KEY (nonalcoholic steatohepatitis): Status: Acute Plan Closed L2 vertebral fracture patient will be scheduled for surgery on Wednesday provided INR is less than 1.3 No active bleed, hemoglobin stable I am reluctant to reverse her effect of Coumadin because of history of factor V Leyden mutation Dr. 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 [employer] Diagnoses Spinal stenosis, lumbar region, with neurogenic claudication M48.062 Closed L2 vertebral fracture S32.029A Encounter type: subsequent encounter Fracture morphology: unspecified fracture morphology Lumbar disc prolapse with compression radiculopathy M51.16 Nicotine dependence, cigarettes, with unspecified nicotine-induced disorders F17.219 Compression fracture of L2 S32.020A Encounter type: initial encounter Diverticulosis large intestine w/o perforation or abscess w/bleeding K57.31 History of Crohn's disease Z87.19 Current use of nursing home anticoagulation Z79.01 KEY (nonalcoholic steatohepatitis) K75.81
[2021-10-31] MEDS: heparin 5,000 unit/mL INJ 1 mL 5000 UNIT SUBCUT (11:45)
[2021-11-01] VITALS (11 sets, daily range): BP systolic 107–169; BP diastolic 62–83; PULSE 73–86; RESP 12–18; TEMP 36.4–36.9; O2SAT 93–94
[2021-11-01] MEDS: heparin 5,000 unit/mL INJ 1 mL 5000 UNIT SUBCUT ×2 (00:04→10:51)
[2021-11-01] MEDS: morphine 4 mg/mL SDV 1 mL IVP ×3 (04:23→19:13)
[2021-11-01 05:56] LABS: Basophils # 0.1 10^3/uL (0.0-0.1); Basophils % 1.1 %; Eosinophils # 0.3 10^3/uL (0.0-0.8); Eosinophils % 5.7 %; Hematocrit 31.5 % (37.0-47.0); Hemoglobin 10.5 g/dL (11.5-15.3); Lymphocytes # 0.9 10^3/uL (0.8-4.8); Lymphocytes % 20.8 %; Mean Corpuscular HGB Conc 33.3 g/dL (30.0-36.0); Mean Corpuscular Hemoglobin 32.4 pg (28.0-34.0); Mean Corpuscular Volume 97.2 fl (81-99); Mean Platelet Volume 9.6 fL (7.4-10.4); Monocytes # 0.5 10^3/uL (0.2-0.9); Monocytes % 11.9 %; Neutrophils # 2.61 10^3/uL (1.8-7.7); Neutrophils % 59.8 %; Nucleated Red Blood Cells % 0 %; Platelet Count 288 10^3/cmm (130-400); Red Blood Count 3.24 10^6/uL (4.1-5.3); Red Cell Distribution Width 16.9 % (12.1-15.1); White Blood Count 4.4 10^3/uL (4.0-10.0)
[2021-11-01 06:25] LABS: Anion Gap 12.9 (5-19); Blood Urea Nitrogen 11 mg/dL (8-23); Calcium 9.5 mg/dL (8.5-10.5); Carbon Dioxide 29 mmol/L (22-29); Chloride 96 mmol/L (98-107); Glomerular Filtration Rate 158.3 mL/min (90-130); Glucose 99 mg/dL (65-115); Osmolality Calculated 275 mOsm/kg (285-295); Potassium 4.9 mmol/L (3.5-5.1); Sodium 133 mmol/L (136-145)
--- NOTE | 2021-11-01 08:53 | PM.PN ---
Subjective Subjective: Patient is sitting in bed doing well for the most part pain is controlled with pain medication. Patient INR is down to 1.4. At this point still planning on surgery tomorrow. Would like to get it below 1.2. Vitals/I&O/Wt Last Vital Signs Temp 97.8 F 11/01/21 07:22 Pulse 76 11/01/21 07:22 Resp 16 11/01/21 07:22 BP 169/83 11/01/21 07:22 Pulse Ox 94 11/01/21 07:22 O2 Del Method 11/01/21 07:22 10/31/21 11/01/21 11/01/21 22:59 06:59 14:59 Intake Total 600 / 2380 720 / 3100 Output Total 1450 / 1450 2400 / 3850 Balance -850 / 930 -1680 / -750 Weight last 48 hrs Weight 185 lb Physical Exam Narrative: Sitting in bed eating breakfast Urinary Catheter Management: Nava: Cath Placed During This Visit: yes Reason for Continuing Indwelling Catheter: Required Immobilization for Trauma or Surgery or Anesthesia Urinary Catheter Date of Insertion: 10/30/21 Urinary Catheter Time of Insertion: 16:30 Data : 11/01/21 04:57 11/01/21 04:57 A&P Assessment and plan (1) Closed L2 vertebral fracture: Plan on fusion tomorrow. She should be n.p.o. after midnight. Status: Acute Qualifiers: Encounter type: subsequent encounter Fracture morphology: unspecified fracture morphology Attestations Medical Necessity Statement*: unstable spine fracture Coding Level of Care Code Acute Boatbuilder Wood for Misti Elizabeth Diagnoses Closed L2 vertebral fracture S32.029A Encounter type: subsequent encounter Fracture morphology: unspecified fracture morphology
[2021-11-01] MEDS: sennosides-docusate Tablet 1 TAB PO (09:27)
[2021-11-01] MEDS: pantoprazole DR 40 mg Tablet PO (09:27)
[2021-11-01] MEDS: phytonadione (ADULT) 10 mg/mL Ampule 1 mL PO (11:01)
--- NOTE | 2021-11-01 11:45 | P.PN_ITS ---
Subjective Subjective: Plan for surgery tomorrow No overnight events Pain under control Will continue her eyedrops Atorvastatin on hold Vitals/I&O/Wt Last Vital Signs Temp 98.1 F 11/01/21 11:33 Pulse 73 11/01/21 11:33 Resp 16 11/01/21 11:33 BP 151/82 11/01/21 11:33 Pulse Ox 94 11/01/21 11:33 O2 Del Method 11/01/21 11:33 10/31/21 11/01/21 11/01/21 22:59 06:59 14:59 Intake Total 600 / 2380 720 / 3100 240 / 240 Output Total 1450 / 1450 2400 / 3850 Balance -850 / 930 -1680 / -750 240 / 240 Weight last 48 hrs Weight 83.915 kg Physical Exam Narrative: Patient sitting comfortably in her bed S1, S2 Abdomen soft No active pain Awake and alert Factors well on room air Watching television Looks comfortable Euvolemic Urinary Catheter Management: Nava: Cath Placed During This Visit: yes Reason for Continuing Indwelling Catheter: Required Immobilization for Trauma or Surgery or Anesthesia Urinary Catheter Date of Insertion: 10/30/21 Urinary Catheter Time of Insertion: 16:30 Data : 11/01/21 04:57 11/01/21 04:57 A&P Assessment and plan (1) Spinal stenosis, lumbar region, with neurogenic claudication: Status: Acute (2) Closed L2 vertebral fracture: Status: Acute Qualifiers: Encounter type: subsequent encounter Fracture morphology: unspecified fracture morphology (3) Lumbar disc prolapse with compression radiculopathy: Status: Acute (4) 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 after midnight We can continue her eyedrops Hold atorvastatin Patient has atelectasis on lung, will benefit from incentive spirometry after surgery Continuing well on room air Pain well managed Full code DVT prophylaxis SCDs Attestations Medical Necessity Statement*: Surgery tomorrow Time Spent in Patient Care: 30 Coding Level of Care Code Acute Regulatory Affairs Consultant for Chg Fwd Diagnoses Spinal stenosis, lumbar region, with neurogenic claudication M48.062 Closed L2 vertebral fracture S32.029A Encounter type: subsequent encounter Fracture morphology: unspecified fracture morphology Lumbar disc prolapse with compression radiculopathy M51.16 Current use of retirement anticoagulation Z79.01 KEY (nonalcoholic steatohepatitis) K75.81 DVT (deep venous thrombosis) I82.509 DVT location: lower extremity Affected thrombotic vein of extremity: unspecified vein of extremity Chronicity: chronic Laterality: unspecified laterality
[2021-11-01] MEDS: HYDROcodone-acetaminophen 5-325 mg Tablet 1 TAB PO ×2 (13:04→23:56)
[2021-11-01] MEDS: brimonidine 0.2% Op Soln 5 mL Btl 1 DROP EYE-BOTH (17:35)
[2021-11-02] VITALS (28 sets, daily range): BP systolic 110–176; BP diastolic 61–95; PULSE 66–95; RESP 12–20; TEMP 36.3–37; O2SAT 88–99
--- NOTE | 2021-11-02 | SCC_ITS ---
Procedure done: 1. T11 - L4 Posterior spine fusion 2. T11 - L4 instrumentation 3. L1/2 laminectomy with partial facetectomy 4. L2/3 laminectomy with partial facetectomy 5. Fracture reduction of L2 6. Bone marow aspirate from right iliac crest 7. Computer navigation/ stereotactic of the spine 0.13 seconds of fluoroscopic guidance, for a cumulative dose of 25.0 mGy, was provided to Dr. Conte by the radiology department. C-arm images of the lumbar spine were saved for the patient's permanent record. RANDY
[2021-11-02 04:58] LABS: Basophils # 0.1 10^3/uL (0.0-0.1); Basophils % 1.2 %; Eosinophils # 0.2 10^3/uL (0.0-0.8); Eosinophils % 4.9 %; Hematocrit 30.5 % (37.0-47.0); Hemoglobin 10.7 g/dL (11.5-15.3); Mean Corpuscular HGB Conc 35.1 g/dL (30.0-36.0); Mean Corpuscular Hemoglobin 32.7 pg (28.0-34.0); Mean Corpuscular Volume 93.3 fl (81-99); Mean Platelet Volume 9.5 fL (7.4-10.4); Monocytes # 0.6 10^3/uL (0.2-0.9); Monocytes % 11.5 %; Neutrophils % 61.8 %; Nucleated Red Blood Cells % 0.4 %; Platelet Count 296 10^3/cmm (130-400); Red Blood Count 3.27 10^6/uL (4.1-5.3); Red Cell Distribution Width 16.6 % (12.1-15.1); White Blood Count 4.9 10^3/uL (4.0-10.0)
[2021-11-02 05:08] LABS: INR 1.04 (0.8-1.2)
[2021-11-02] MEDS: morphine 4 mg/mL SDV 1 mL IVP ×2 (05:12→20:01)
[2021-11-02 05:32] LABS: Anion Gap 13.2 (5-19); Blood Urea Nitrogen 13 mg/dL (8-23); Calcium 9.7 mg/dL (8.5-10.5); Carbon Dioxide 27 mmol/L (22-29); Chloride 96 mmol/L (98-107); Glomerular Filtration Rate 158.3 mL/min (90-130); Glucose 105 mg/dL (65-115); Osmolality Calculated 274 mOsm/kg (285-295); Potassium 4.2 mmol/L (3.5-5.1); Sodium 132 mmol/L (136-145)
[2021-11-02] MEDS: HYDROcodone-acetaminophen 5-325 mg Tablet 1 TAB PO ×2 (09:12→21:59)
[2021-11-02] MEDS: sennosides-docusate Tablet 1 TAB PO (09:12)
[2021-11-02] MEDS: pantoprazole DR 40 mg Tablet PO (09:12)
--- NOTE | 2021-11-02 09:32 | PC.SOCIAL ---
IMM Update Imm updated with patient, copy of page 2 provided. Patient verbalized understanding. Copy initialed, dated and timed, placed in chart.
[2021-11-02] MEDS: ondansetron 2 mg/ML SDV 2 mL 4 MG IVP (12:19)
--- NOTE | 2021-11-02 12:45 | ANES.PAUD2 ---
Pre-Anesthetic Update Pre-Anesthetic Assessment: Date of Surgery/Procedure: 11/02/21 Preop Diagnosis: L of 2 compression fracture Proposed Procedure: Operation Date: 10/31/21 14:55 Proposed Procedures p Spinal Fusion Posterior Spinal Fusion T11-L4(Not Applicable) - Alexis Fisher Caron, DO s Lumbar Laminectomy L1-2(Not Applicable) - Alexisdoris Fisher Caron, DO Operation Date: 11/02/21 13:30 Proposed Procedures p Spinal Fusion Posterior Spinal Fusion T11-L4(Not Applicable) - Alexis H Inés, DO s Lumbar Laminectomy L1-2(Not Applicable) - Alexisdoris Conte, DO Changes from Pre-Anesthetic Assessment: Patient now with new L2 fracture Last Intake: Intake Last Liquid Date 10/30/21 Last Liquid Time 23:30 Last Solid Date 10/30/21 Last Solid Time 18:00 Labs Last 48hrs: Short CBC 11/01/21 11/02/21 Range/Units 04:57 04:23 WBC 4.4 4.9 (4.0-10.0) 10^3/ uL Hgb 10.5 L 10.7 L (11.5-15.3) g/dL Hct 31.5 L 30.5 L (37.0-47.0) % MCV 97.2 93.3 (81-99) fl Plt Count 288 296 (130-400) 10^3/c mm Neut % (Auto) 59.8 61.8 % Neut # (Auto) 2.61 3.00 (1.8-7.7) 10^3/u L BMP 11/01/21 11/02/21 04:57 04:23 Sodium 133 L 132 L Potassium 4.9 4.2 Chloride 96 L 96 L Carbon Dioxide 29 27 BUN 11 13 Creatinine 0.4 L 0.4 L Glucose 99 105 Calcium 9.5 9.7 Blood Bank 11/01/21 08:51 Blood Type A Positive Rho(D) Type Positive Antibody Screen Negative Coags 11/01/21 11/02/21 04:57 04:23 PT 17.50 H 13.90 INR 1.40 H 1.04 Vitals: Temperature 98.1 F 11/02/21 07:46 Temperature Source Oral 11/02/21 07:46 Pulse Rate 88 11/02/21 08:00 Pulse Rhythm 11/01/21 20:00 Pulse Strength 3+ Normal 11/01/21 20:00 Respiratory Rate 16 11/02/21 07:46 Respiratory Effort Non-Labored 11/01/21 20:00 Respiratory Depth Normal 11/02/21 05:12 Respiratory Patter n 11/01/21 20:00 Blood Pressure 142/75 11/02/21 07:46 Blood Pressure Trista n 97 11/02/21 07:46 Blood Pressure Pos ition Supine 11/02/21 07:46 Pulse Oximetry 88 L 11/02/21 08:00 Oxygen Delivery Me thod 11/02/21 08:00 Sepsis Recent Feve r Within 48 Hours No 10/30/21 08:26 Exam: Pre-Anes Outpt Exam: alert, oriented x 3, clear to auscultation bilaterally and regular rate & rhythm Cardiac Studies: No Data to Display
--- NOTE | 2021-11-02 12:48 | PM.PN ---
Subjective Subjective: Patient is laying in semi-Flores position No active pain Plan for surgery today INR less than 1.2 Vitals/I&O/Wt Last Vital Signs Temp 97.5 F L 11/02/21 12:40 Pulse 80 11/02/21 12:40 Resp 16 11/02/21 12:40 BP 133/80 11/02/21 12:40 Pulse Ox 92 11/02/21 12:40 O2 Del Method 11/02/21 12:40 11/01/21 11/02/21 11/02/21 22:59 06:59 14:59 Intake Total 237 / 837 150 / 987 Output Total 1670 / 3870 1475 / 5345 1000 / 1000 Balance -1433 / -3033 -1325 / -4358 -1000 / -1000 Physical Exam Narrative: No significant change in exam She is pleasant and cooperative Sister at the bedside Saturate well on room air Abdomen soft S1, S2 No active bleeding No active back pain at rest EOMI, PERRLA Urinary Catheter Management: Nava: Cath Placed During This Visit: yes Reason for Continuing Indwelling Catheter: Required Immobilization for Trauma or Surgery or Anesthesia Urinary Catheter Date of Insertion: 10/30/21 Urinary Catheter Time of Insertion: 16:30 Data : 11/02/21 04:23 11/02/21 04:23 A&P Assessment and plan (1) Spinal stenosis, lumbar region, with neurogenic claudication: Status: Acute (2) Closed L2 vertebral fracture: Status: Acute Qualifiers: Encounter type: subsequent encounter Fracture morphology: unspecified fracture morphology (3) Lumbar disc prolapse with compression radiculopathy: Status: Acute (4) Nicotine dependence, cigarettes, with unspecified nicotine-induced disorders: Status: Acute (5) Compression fracture of L2: Status: Acute Qualifiers: Encounter type: initial encounter Qualified Code(s): S32.020A - Wedge compression fracture of second lumbar vertebra, initial encounter for closed fracture (6) Current use of nursing home anticoagulation: Status: Chronic (7) KEY (nonalcoholic steatohepatitis): Status: Acute Plan Plan for surgery today Pain well managed Continue bowel regimen She is full code INR less than 1.2 Will require PT evaluation after surgery they will decide her disposition will advance diet after surgery Sister at the bedside Attestations Medical Necessity Statement*: Surgery today Time Spent in Patient Care: 30 Coding Level of Care Code Acute Payroll Benefits Administrator for Chg Fwd Diagnoses Spinal stenosis, lumbar region, with neurogenic claudication M48.062 Closed L2 vertebral fracture S32.029A Encounter type: subsequent encounter Fracture morphology: unspecified fracture morphology Lumbar disc prolapse with compression radiculopathy M51.16 Nicotine dependence, cigarettes, with unspecified nicotine-induced disorders F17.219 Compression fracture of L2 S32.020A Encounter type: initial encounter 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
--- NOTE | 2021-11-02 13:14 | P.HP_ITS ---
Providers/Chief Complaint Admitting Physician: Micaela Villar MD Primary Care Provider: Mckenna Rubin DO Chief Complaint: LOWER BACK PAIN History of Present Illness Carolyn Bedoya is a 71 year old female who presented to [facility] [place] emergency room with continued back pain.? She describes weakness in both legs really been giving out on her.? The pain is been ongoing progressively getting worse over the last few weeks.? She had a kyphoplasty procedure at L2 approximately 6 days ago that has not given her the kind of relief she obtained with the kyphoplasty's at L4 and L5.? She denies any falls denies any new injuries to her back pain has been progressively getting worse.? She describes sharp stabbing pain in the back with weakness numbness down both legs.? She denies any loss of bowel or bladder control denies any saddle anesthesia.? Rest is giving her some short-term relief but any attempts to set up or walk make her symptoms much worse. Review of Systems Const: Denies: fever(s) Eyes: Denies: change in vision ENMT: Denies: throat pain Card: Denies: chest pain Resp: Denies: dyspnea GI: Denies: abdominal pain : Denies: flank pain Musc: Reports: back pain, joint stiffness and limited range of motion Skin/Breast: Denies: rash Neuro: Denies: headache(s) Psych: Reports: anxiety Endo: Denies: polyuria Louie/Lymph: Denies: easy bruising All/Imm: Denies: urticaria Medications/Allergies Home Medications Medication Instructions Recorded Confirmed Last Taken Type albuterol sulfate 90 mcg/actuation 1 inh inhalation PRN PRN Shortness 07/25/19 10/30/21 Unknown History aerosol inhaler (Ventolin HFA) Of Breath denosumab 60 mg/mL subcutaneous 60 mg SUBCUT .every 6 months 07/25/19 10/30/21 02/19/21 History syringe (Prolia) cetirizine 10 mg capsule (All Day 10 mg PO DAILY PRN Allergy Symptoms 11/12/20 10/30/21 10/29/21 History Allergy (cetirizine)) azathioprine 50 mg tablet 100 mg PO BID 01/14/21 10/30/21 10/29/21 History calcium carbonate 600 mg calcium 600 mg PO DAILY #90 tabs 03/07/21 10/30/21 10/29/21 Rx (1,500 mg) tablet (Calcium) cholecalciferol (vitamin D3) 125 125 mcg PO DAILY #90 caps 03/07/21 10/30/21 10/29/21 Rx mcg (5,000 unit) capsule brimonidine 0.2 % eye drops 1 drp ophthalmic (eye) .COMPLEX 90 03/10/21 10/30/21 10/29/21 Rx days #30 mL warfarin 10 mg tablet 10 mg PO .COMPLEX 90 days #132 tabs 05/15/21 10/30/21 10/29/21 Rx [id number] 120 mcg-lutein 1 tab PO DAILY 08/06/21 10/30/21 10/29/21 History 150 mcg-herb 37.5 mg chewable tablet (Alive Women's 50 Plus Gummy) nortriptyline 25 mg capsule 25 mg PO BEDTIME #90 caps 09/23/21 10/30/21 10/29/21 Rx aripiprazole 2 mg tablet 2 mg PO DAILY #90 tabs 10/16/21 10/30/21 10/29/21 Rx atorvastatin 10 mg tablet 10 mg PO DAILY #90 tabs 10/16/21 10/30/21 10/29/21 Rx tizanidine 4 mg capsule 4 mg PO Q8H PRN muscle spasticity 10/16/21 10/30/21 10/23/21 Rx #30 caps citalopram 40 mg tablet 40 mg PO DAILY 10/23/21 10/30/21 10/29/21 History latanoprost 0.005 % eye drops 1 drp ophthalmic (eye) BEDTIME 10/23/21 10/30/21 10/29/21 History omeprazole 40 mg capsule,delayed 40 mg PO DAILY 10/23/21 10/30/21 10/29/21 History release hydrocodone 5 mg-acetaminophen 325 1 - 2 tab PO .Q4-6H #40 tabs 10/24/21 10/30/21 10/29/21 Rx mg tablet cyclobenzaprine 10 mg tablet 10 mg PO TID PRN muscle spasm #60 10/28/21 10/30/21 10/29/21 Rx tabs diclofenac sodium 75 mg 75 mg PO Q12H PRN Pain 10/30/21 10/30/21 Unknown History tablet,delayed release lactulose 10 gram/15 mL oral 10 g PO DAILY 10/30/21 10/30/21 10/29/21 History solution warfarin 2.5 mg tablet 2.5 mg PO DAILY 10/30/21 10/30/21 10/29/21 History warfarin 5 mg tablet 5 mg PO DAILY 10/30/21 10/30/21 10/29/21 History Allergies Allergy/AdvReac Type Severity Reaction Status Date / Time No Known Allergies Allergy Verified 10/30/21 14:03 PFSH Acute PFSH: Medical History Anxiety and depression Asthma Crohn disease DVT (deep venous thrombosis) recurrent Dyslipidemia Encounter for long-term opiate analgesic use Factor V deficiency Low back pain of over 3 months duration KEY (nonalcoholic steatohepatitis) Opioid contract exists Osteoporosis Pain in thoracic spine Stable burst fracture of fifth lumbar vertebra Surgical History History of ankle surgery History of arthroplasty of right shoulder History of arthroscopy of left knee x3 History of back surgery 07/19/17 thoracic laminotomy, with placement of intraspinal epidureal paddle electrode arrays( [employer]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 Placement of subcutaneous programmable pulse generator ([employer]) History of basal cell carcinoma excision Nasal History of knee replacement, total 02/2015 History of lumpectomy of right breast 2007 History of partial hysterectomy 1986 History of total replacement of right shoulder joint 2008 and multiple surgeries Hx of eye surgery stent placed in left eye and cataracts Hx of tonsillectomy age 4 Family History Unknown Cancer Social History Smoking and tobacco status: former smoker Alcohol intake: former History of recent travel: No Vitals/I&O/Wt Last Vital Signs Temp 97.5 F L 11/02/21 12:40 Pulse 80 11/02/21 12:40 Resp 16 11/02/21 12:40 BP 133/80 11/02/21 12:40 Pulse Ox 92 11/02/21 12:40 O2 Del Method 11/02/21 12:40 11/01/21 11/02/2111/02/22 22:59 06:59 14:59 Intake Total 237 / 837 150 / 987 Output Total 1670 / 3870 1475 / 5345 1000 / 1000 Balance -1433 / -3033 -1325 / -4358 -1000 / -1000 Physical Exam Narrative: She is alert orient x3 she has good general appearance normal mood normal affect.? No obvious distress.? Patient was evaluated in ER bay 7.? Palpable low back pain.? She is weak diffusely in both lower extremities.? She has incisions in the upper lumbar region from recent kyphoplastyand Spinal Cord Stimulator placement.? She is able to flex and extend both legs slowly.? She wiggles her toes they are warm to the touch.? Dorsalis pedis and posterior tib pulses are weak but palpable.? Calves are supple no medial thigh tenderness.? Negative logroll bilaterally.? Calves are supple.? Moves both upper extremities without any problems 5 or 5 strength normal sensation in both arms no palpable pain about the cervical spine or upper extremities.? Radial pulses are palpable.? Normal station light touch. Urinary Catheter Management: Nava: Cath Placed During This Visit: yes Reason for Continuing Indwelling Catheter: Required Immobilization for Trauma or Surgery or Anesthesia Urinary Catheter Date of Insertion: 10/30/21 Urinary Catheter Time of Insertion: 16:30 Data : 11/02/21 04:23 11/02/21 04:23 A&P Assessment and plan (1) Spinal stenosis, lumbar region, with neurogenic claudication: At this point we will plan for a T11-L4 instrumented fusion with decompression L2. Status: Acute (2) Closed L2 vertebral fracture: Status: Acute Qualifiers: Encounter type: subsequent encounter Fracture morphology: unspecified fracture morphology Attestations Medical Necessity Statement*: defer to medical team Coding Level of Care Code Acute Branch Rental Manager for [facility] Fwd Diagnoses Spinal stenosis, lumbar region, with neurogenic claudication M48.062 Closed L2 vertebral fracture S32.029A Encounter type: subsequent encounter Fracture morphology: unspecified fracture morphology
[2021-11-02] MEDS: ceFAZolin 1,000 mg SDV 2000 MG IVP (13:40)
[2021-11-02] MEDS: heparin, porcine 1,000 unit/mL INJ 10 mL 10000 UNIT XX (14:45)
[2021-11-02] MEDS: vancomycin 1,000 MG SDV 1000 MG XX (15:00)
--- NOTE | 2021-11-02 15:44 | P.OP_ITS ---
Operative Report Date of procedure: November 02, 2021 Pre-op diagnosis: Preop Diagnosis L of 2 compression fracture Post-op diagnosis: same Procedure done: 1. T11 - L4 Posterior spine fusion 2. T11 - L4 instrumentation 3. L1/2 laminectomy with partial facetectomy 4. L2/3 laminectomy with partial facetectomy 5. Fracture reduction of L2 6. Bone marow aspirate from right iliac crest 7. Computer navigation/ stereotactic of the spine Surgeon: Alexis Conte Program Support Clerk: Noe Norton Program Support Clerk: The surgical territory manager, Noe Norton, PAC was needed for his expertise under the microscope. He was important and necessary throughout the procedure to complete in a safe and timely manner. He assisted with patient positioning prepping and draping tissue retraction suctioning of the operative field p rotection of the dural sac and tissue closure Estimated blood loss (mL): 250 Procedure: 1. T11 - L4 Posterior spine fusion 2. T11 - L4 instrumentation 3. L1/2 laminectomy with partial facetectomy 4. L2/3 laminectomy with partial facetectomy 5. Fracture reduction of L2 6. Bone marow aspirate from right iliac crest 7. Computer navigation/ stereotactic of the spine Patient was brought to the operative suite after undergoing anesthesia neuro monitoring was connected and there is no issues with neuro monitoring throughout the entire case. Patient was then positioned in the prone position all areas impingement well-padded. Patient was then prepped and draped normal sterile fashion. Skin incision was made from T11 down to L4. Thoracolumbar fascia was identified and subperiosteal dissection was made off of the spinous processes out the lamina over the facets to the transverse processes from T11 down to L4 this was done bilaterally. Once the exposure was complete attention was then brought to getting the bone marrow aspirate of the right iliac crest. The bone marrow aspiration kit was used. The sharp guidance was inserted. Blood was aspirated and the blunt tip was inserted and driven into the iliac wing. And then the aspiration needle was inserted. And in 1 mm increments the bone marrow was aspirated out. This bone marrow was then mixed with the autograft which will later be gotten in the case as well as the allograft which is ostial amp that were ablated be packed into the lateral gutters. Next attention was brought to performing the placement of the fiducial for the computer navigation. 2 pins were placed in the right iliac crest. These pins were later be removed at the end of the case. The fiducials and attached onto these 2 pins. And the C-arm was brought in for explaining all the information from the C-arm was then linked to the computer which later will be used for placement of the pedicle screws. Next attention was brought to placing the pedicle screws. The computer navigated awl was inserted into the pedicle. Followed by the pedicle probe. Followed by the screw on computer navigation. This process was done at L4 bilaterally, L3 bilaterally. She was skipped because this is a fracture level. The pedicle screw technique was then again used at the L1 level bilaterally, T12 bilaterally and T11 bilaterally. Once all the screws were placed there tested with electrical impedance. To ensure that they were not around any nerves. The all tested greater than 20. Next attention was brought to performing the laminectomies. A laminectomies performed at L1 using high-speed bur. And then the medial aspect of the L1-2 facet was taken down with a high-speed bur and rongeur. And Kerrisons. The ligamentum flavum was taken down from L1-L2. This was done out to the level of the pedicles. In order to ensure that the dura had plenty of room. The L1 nerve was traced out the L1 to foramen bilaterally and the L2 were traced around the L2 pedicles bilaterally. Extension was brought to performing the laminectomies at L2-3. A laminectomy was performed at L1 using high-speed bur and then the medial aspect of the L2-3 facet was taken down with a high-speed bur and rongeur. And Kerrisons the ligamentum flavum was taken down from L2-L3 again this was out to the level of the pedicles this ensure that the dura had plenty of space. The L2 nerve was traced out the L2-3 foramen. The L3 nerve was traced around the L3 pedicles. Next attention was brought to placing the rods. 2 rods were measured and cut. And bent to the appropriate curve. Once rods were placed and caps were placed at L4 bilaterally L3 bilaterally L1 bilaterally T12 and T11 bilaterally. The rods were locked down at L2 and L3. And then the pedicles were distracted in order to reduce the L2 fracture. And then all the end caps were torqued down. This was done bilaterally. Extension was brought to decorticating the transverse processes and lateral gutters. Once the bone was decorticated. Autograft and allograft were packed into the lateral gutters bilaterally. Bone graft was from the laminectomies through the same incision. In the allograft was ostial amp bone graft. Wound was then irrigated vancomycin powder was placed and wound was closed in a layered fashion of 0 Vicryl 2-0 Vicryl Monocryl Steri-Strips and sterile dressings were applied and patient was transferred to the PACU in stable condition.
[2021-11-02] MEDS: fentaNYL 50 mcg/mL INJ 2mL IVP ×2 (16:27→16:42)
--- NOTE | 2021-11-02 17:06 | P.PCN_ITS ---
PACU note Narrative: VSS, Good respiratory effort, report to DRILL PRESS TENDER Exam: awake
--- NOTE | 2021-11-02 17:06 | PM.PACU ---
PACU note Narrative: VSS, Good respiratory effort, report to HAND INSERTER OPERATOR Exam: awake
[2021-11-02] MEDS: ketorolac 30 mg/mL INJ IVP (17:52)
[2021-11-02] MEDS: lactated ringers 1,000 ML 90 ML IV (17:59)
[2021-11-02] MEDS: ceFAZolin 2,000 MG in sodium chloride 0.9% (plus) 50 ML 100 MG IV (23:46)
[2021-11-03] VITALS (9 sets, daily range): BP systolic 122–150; BP diastolic 70–87; PULSE 71–88; RESP 16–18; TEMP 36.6–36.8; O2SAT 94–97
[2021-11-03] MEDS: morphine 4 mg/mL SDV 1 mL IVP ×5 (00:47→20:44)
[2021-11-03 04:16] LABS: Glucose Point of Care 143 mg/dL (70-110)
[2021-11-03 04:23] LABS: Basophils % 0.1 %; Hematocrit 28.9 % (37.0-47.0); Hemoglobin 10.5 g/dL (11.5-15.3); Lymphocytes # 0.7 10^3/uL (0.8-4.8); Lymphocytes % 8.4 %; Mean Corpuscular HGB Conc 36.3 g/dL (30.0-36.0); Mean Corpuscular Hemoglobin 32.4 pg (28.0-34.0); Mean Corpuscular Volume 89.2 fl (81-99); Monocytes # 0.4 10^3/uL (0.2-0.9); Monocytes % 4.2 %; Neutrophils # 7.59 10^3/uL (1.8-7.7); Neutrophils % 86.7 %; Nucleated Red Blood Cells % 0 %; Platelet Count 300 10^3/cmm (130-400); Red Blood Count 3.24 10^6/uL (4.1-5.3); Red Cell Distribution Width 16.3 % (12.1-15.1); White Blood Count 8.8 10^3/uL (4.0-10.0)
[2021-11-03 04:32] LABS: INR 1.01 (0.8-1.2)
[2021-11-03 04:44] LABS: Anion Gap 15.8 (5-19); Blood Urea Nitrogen 12 mg/dL (8-23); Calcium 9.3 mg/dL (8.5-10.5); Carbon Dioxide 24 mmol/L (22-29); Chloride 94 mmol/L (98-107); Glomerular Filtration Rate 158.3 mL/min (90-130); Glucose 136 mg/dL (65-115); Osmolality Calculated 270 mOsm/kg (285-295); Potassium 4.8 mmol/L (3.5-5.1); Sodium 129 mmol/L (136-145)
[2021-11-03] MEDS: lactated ringers 1,000 ML 90 ML IV (05:08)
--- NOTE | 2021-11-03 07:19 | P.PN_ITS ---
Subjective Subjective: Patient resting comfortably in bed and pain is relatively controlled. This point patient stated that the drain had been emptied a couple times. At this point plan on leaving the drain in for 1 more day. Vitals/I&O/Wt Last Vital Signs Temp 98.1 F 11/03/21 04:29 Pulse 84 11/03/21 04:29 Resp 18 11/03/21 05:08 BP 150/87 11/03/21 04:29 Pulse Ox 97 11/03/21 04:29 O2 Del Method 11/02/21 23:22 O2 Flow Rate 6 11/02/21 16:53 11/02/21 11/03/21 11/03/21 22:59 06:59 14:59 Intake Total 860 / 860 1530 / 2390 Output Total 1200 / 2200 1175 / 3375 Balance -340 / -1340 355 / -985 Physical Exam 2 Narrative: Patient moving toes sensation intact 5 5 strength in lower extremities. Not complain of any numbness. Urinary Catheter Management: Nava: Cath Placed During This Visit: yes Reason for Continuing Indwelling Catheter: Perioperative Use in Selected Surgeries Urinary Catheter Date of Insertion: 10/30/21 Urinary Catheter Time of Insertion: 16:30 Data : 11/03/21 03:30 11/03/21 03:30 A&P Assessment and plan (1) Closed L2 vertebral fracture: Patient is postop day #1 T11-L4 posterior spine fusion. Patient will be getting up with therapy. We will leave the drain in for 1 more day Status: Acute Qualifiers: Encounter type: subsequent encounter Fracture morphology: unspecified fracture morphology Attestations Medical Necessity Statement*: Pain control Coding Level of Care Code Acute Tank Cleaning Supervisor for Misti Elizabeth Diagnoses Closed L2 vertebral fracture S32.029A Encounter type: subsequent encounter Fracture morphology: unspecified fracture morphology
[2021-11-03] MEDS: HYDROcodone-acetaminophen 5-325 mg Tablet 1 TAB PO ×3 (07:29→17:55)
--- NOTE | 2021-11-03 09:02 | XR_ITS ---
WS: [id number] INTRAOPERATIVE TECHNIQUE: 4 Spot fluoroscopic images for intraoperative purposes. FLUOROSCOPY TIME: 13 seconds CLINICAL INFORMATION: OR PICS COMPARISON: None. FINDINGS: Pedicle screw fixation T11-L4. Prior kyphoplasty changes at L2, L4, and L5. Spinal stimulator pack in the RIGHT lower quadrant. XR/XR lumbar spine 1V port [id number] IMPRESSION: Images obtained for intraoperative purposes.
[2021-11-03] MEDS: ceFAZolin 2,000 MG in sodium chloride 0.9% (plus) 50 ML 100 MG IV ×2 (09:04→15:09)
[2021-11-03] MEDS: sennosides-docusate Tablet 1 TAB PO ×2 (09:11→17:55)
[2021-11-03] MEDS: docusate sodium 100 mg Capsule PO ×2 (09:11→17:55)
[2021-11-03] MEDS: pantoprazole DR 40 mg Tablet PO (09:11)
[2021-11-03] MEDS: ketorolac 30 mg/mL INJ IVP (11:15)
--- NOTE | 2021-11-03 11:17 | P.PN_ITS ---
Subjective Subjective: Patient is endorsing 10 out of 10 pain in her back 200 cc in her Hemovac Hold on on starting Coumadin today because of active bleed Hemoglobin 10.5 Working with PT She has been accepted at a intermediate Vitals/I&O/Wt Last Vital Signs Temp 98.1 F 11/03/21 04:29 Pulse 84 11/03/21 04:29 Resp 18 11/03/21 09:04 BP 150/87 11/03/21 04:29 Pulse Ox 97 11/03/21 09:04 O2 Del Method 11/02/21 23:22 O2 Flow Rate 6 11/02/21 16:53 11/02/21 11/03/21 11/03/21 22:59 06:59 14:59 Intake Total 860 / 860 1530 / 2390 290 / 290 Output Total 1200 / 2200 1175 / 3375 Balance -340 / -1340 355 / -985 290 / 290 Physical Exam Narrative: Patient is complaining of back pain, eating her breakfast Abdomen is bloated however she is not endorsing abdominal pain rigidity guarding, abdominal sounds are present No signs of edema 200 cc of blood in Hemovac Awake and alert Back pain 10/10 S1, S2 Satting well on room air Urinary Catheter Management: Nava: Cath Placed During This Visit: yes Reason for Continuing Indwelling Catheter: Perioperative Use in Selected Surgeries Urinary Catheter Date of Insertion: 10/30/21 Urinary Catheter Time of Insertion: 16:30 Data : 11/03/21 03:30 11/03/21 03:30 A&P Assessment and plan (1) Spinal stenosis, lumbar region, with neurogenic claudication: Status: Acute (2) Closed L2 vertebral fracture: Status: Acute Qualifiers: Encounter type: subsequent encounter Fracture morphology: unspecified fracture morphology (3) Lumbar disc prolapse with compression radiculopathy: Status: Acute (4) Nicotine dependence, cigarettes, with unspecified nicotine-induced disorders: Status: Acute (5) Compression fracture of L2: Status: Acute Qualifiers: Encounter type: initial encounter Qualified Code(s): S32.020A - Wedge compression fracture of second lumbar vertebra, initial encounter for closed fr acture Plan Postop day 1 Hemovac draining blood Hold hold off on initiating Coumadin for now Hemoglobin 10.5 Hemoglobin has not dropped significantly, hemodynamically stable To work with PT She has been accepted at a intermediate already I can discharge her on Coumadin we do not have to wait for her INR to to get above 2, it can be monitored intermediate as well She is full code Regular diet Keep Nava catheter until the day of discharge Currently she is getting morphine 4 mg IV as needed along hydrocodone, I will discontinue her IV fluids, tolerating her diet Attestations Medical Necessity Statement*: Discharge to intermediate tomorrow if drain gets removed Time Spent in Patient Care: 30 Coding Level of Care Code Acute Contracting Executive for Misti Stevensd Diagnoses Spinal stenosis, lumbar region, with neurogenic claudication M48.062 Closed L2 vertebral fracture S32.029A Encounter type: subsequent encounter Fracture morphology: unspecified fracture morphology Lumbar disc prolapse with compression radiculopathy M51.16 Nicotine dependence, cigarettes, with unspecified nicotine-induced disorders F17.219 Compression fracture of L2 S32.020A Encounter type: initial encounter
[2021-11-03] MEDS: ARIPiprazole 2 mg Tablet PO (15:09)
[2021-11-03] MEDS: brimonidine 0.2% Op Soln 5 mL Btl 1 DROP EYE-BOTH (17:55)
[2021-11-04] VITALS (10 sets, daily range): BP systolic 105–152; BP diastolic 64–85; PULSE 78–93; RESP 16–18; TEMP 36.2–37.2; O2SAT 91–98
[2021-11-04] MEDS: HYDROcodone-acetaminophen 5-325 mg Tablet 1 TAB PO ×5 (00:07→22:35)
[2021-11-04] MEDS: morphine 4 mg/mL SDV 1 mL IVP (04:04)
[2021-11-04 05:07] LABS: Basophils % 0.4 %; Eosinophils # 0.1 10^3/uL (0.0-0.8); Eosinophils % 1.6 %; Hematocrit 29.4 % (37.0-47.0); Hemoglobin 10.1 g/dL (11.5-15.3); Lymphocytes # 1.1 10^3/uL (0.8-4.8); Lymphocytes % 13.4 %; Mean Corpuscular HGB Conc 34.4 g/dL (30.0-36.0); Mean Corpuscular Hemoglobin 32.9 pg (28.0-34.0); Mean Corpuscular Volume 95.8 fl (81-99); Mean Platelet Volume 9.6 fL (7.4-10.4); Monocytes # 0.7 10^3/uL (0.2-0.9); Monocytes % 8.6 %; Neutrophils # 6.41 10^3/uL (1.8-7.7); Neutrophils % 75.3 %; Nucleated Red Blood Cells % 0 %; Platelet Count 311 10^3/cmm (130-400); Red Blood Count 3.07 10^6/uL (4.1-5.3); Red Cell Distribution Width 17.3 % (12.1-15.1); White Blood Count 8.5 10^3/uL (4.0-10.0)
[2021-11-04 05:16] LABS: INR 0.89 (0.8-1.2)
[2021-11-04 05:38] LABS: Anion Gap 14.3 (5-19); Blood Urea Nitrogen 14 mg/dL (8-23); Calcium 9.3 mg/dL (8.5-10.5); Carbon Dioxide 26 mmol/L (22-29); Chloride 91 mmol/L (98-107); Glomerular Filtration Rate 158.3 mL/min (90-130); Glucose 101 mg/dL (65-115); Osmolality Calculated 265 mOsm/kg (285-295); Potassium 4.3 mmol/L (3.5-5.1); Sodium 127 mmol/L (136-145)
[2021-11-04] MEDS: ARIPiprazole 2 mg Tablet PO (08:45)
[2021-11-04] MEDS: sennosides-docusate Tablet 1 TAB PO ×2 (08:45→17:19)
[2021-11-04] MEDS: pantoprazole DR 40 mg Tablet PO (08:45)
[2021-11-04] MEDS: docusate sodium 100 mg Capsule PO ×2 (08:45→17:19)
[2021-11-04] MEDS: ketorolac 30 mg/mL INJ IVP ×2 (08:45→20:24)
[2021-11-04] MEDS: brimonidine 0.2% Op Soln 5 mL Btl 1 DROP EYE-BOTH ×2 (08:46→17:18)
--- NOTE | 2021-11-04 08:55 | PM.PN ---
Subjective Subjective: POD 2 Patient resting comfortably. Complains of back pain with bilateral leg weakness. She has difficult time mobilizing with physical therapy. Denies any lightheadedness, shortness of breath, chest pain. Vitals/I&O/Wt Last Vital Signs Temp 97.6 F 11/04/21 07:58 Pulse 88 11/04/21 07:58 Resp 16 11/04/21 07:58 BP 152/85 11/04/21 07:58 Pulse Ox 92 11/04/21 07:58 O2 Del Method 11/04/21 07:58 O2 Flow Rate 6 11/02/21 16:53 11/03/21 11/04/21 11/04/21 22:59 06:59 14:59 Intake Total 1410 / 1700 120 / 1820 420 / 420 Output Total 70 / 930 670 / 1600 490 / 490 Balance 1340 / 770 -550 / 220 -70 / -70 Physical Exam Narrative: Patient presents alert and oriented x3 with a good general appearance normal mood and affect. Normal coordination normal stability. Mild tenderness around the incisional site with the incision appear to be healing nicely. Hemovac drain intact. No signs of erythema or drainage. No signs of infection. Patient denies any fevers or chills. 3/5 motor strength both lower extremities with negative straight leg raise bilaterally. Calves are supple no medial thigh tenderness. Pulses are 2+ at the dorsalis pedis and posterior tibial region. Good capillary refill throughout normal sensation light touch both lower extremities. Urinary Catheter Management: Nava: Cath Placed During This Visit: yes Reason for Continuing Indwelling Catheter: Perioperative Use in Selected Surgeries Urinary Catheter Date of Insertion: 10/30/21 Urinary Catheter Time of Insertion: 16:30 Data : 11/04/21 04:26 11/04/21 04:26 A&P Assessment and plan (1) Status post lumbar spinal fusion: Encourage mobilization with physical therapy today. We will have the Hemovac drain discontinued as well as Nava catheter. bibliographic services specialist consulted for placement. Continue incentive spirometry for pulmonary toilet. I have laxative of choice to help with bowel movement. Status: Acute (2) Postoperative anemia: Status: Acute Attestations Medical Necessity Statement*: social media developer for placment Coding Level of Care Code Acute Director Emergency Department for Misti Elizabeth Diagnoses Status post lumbar spinal fusion Z98.1 Postoperative anemia D64.9
--- NOTE | 2021-11-04 09:44 | PC.SOCIAL ---
IMM Update Imm updated with patient, copy of page 2 provided. Patient verbalized understanding. Copy initialed, dated and timed, placed in chart.
--- NOTE | 2021-11-04 09:49 | XRR_ITS ---
PROCEDURE INFORMATION: Exam: XR Abdomen Exam date and time: 11/04/2021 11:12 AM Age: 71 years old Clinical indication: Bloating and constipation; Prior surgery; Surgery type: Nerve stimulator; Patient HX: No bowel movement for 2 weeks; Additional info: Bloating, constipation TECHNIQUE: Imaging protocol: Radiologic exam of the abdomen. Views: Frontal supine view of the abdomen. 1 View. COMPARISON: CT abdomen pelvis w con* [id number] 02/17/2016 2:25 PM FINDINGS: Tubes, catheters and devices: The neurostimulator projects over the left hemiabdomen and lower thoracic spine. Gastrointestinal tract: There is multiple air distended loops of small bowel throughout the abdomen. No air-fluid levels seen. Air is seen within the colon. Organs: Cholecystectomy clips project over the right upper quadrant. Bones/joints: Thoracolumbar fusion hardware and degenerative changes seen. Vertebral augmentation cement is seen at multiple levels in the lumbar spine. XR/XR KUB portable [id number] IMPRESSION: Imaging findings suggestive of adynamic ileus.
--- NOTE | 2021-11-04 10:28 | PC.NURSE ---
hemovac drain removed at 0930. no bleeding , bruising or hematoma. covaderm applied.
[2021-11-04] MEDS: lactulose oral liq 20 gm/30 mL UDC PO ×2 (11:18→21:40)
--- NOTE | 2021-11-04 11:57 | P.DS_ITS ---
Discharge Providers Date of Admission: 10/30/21 12:23 Date of Discharge: November 04, 2021 Attending Provider at Admission: Micaela Villar MD Attending Provider at Discharge: Micaela Villar MD Primary Care Provider: Mckenna Rubin DO Diagnoses at Discharge Discharge Diagnosis (1) Status post lumbar spinal fusion: Status: Acute (2) Postoperative anemia: Status: Acute Reason for Visit Reason for Visit: LOWER BACK PAIN Physical Exam Urinary Catheter Management: Nava: Cath Placed During This Visit: yes, but has since been removed by the nurse Reason for Continuing Indwelling Catheter: Not indwelling catheter Urinary Catheter Date of Insertion: 10/30/21 Urinary Catheter Time of Insertion: 16:30 Date Urinary Catheter Removed: 11/04/21 Time Urinary Catheter Discontinued: 09:58 Discharge Data Studies Completed and Pending Completed Studies During Hospitalization Category Date Time Status CT lumbar spine wo con* [id number] Urgent Cat Scan 10/30/21 08:51 Completed XR KUB portable [id number] Routine Exams 11/04/21 09:49 Completed XR chest 1V portable [id number] Urgent Exams 10/30/21 10:48 Completed XR lumbar spine 1V port [id number] Routine Exams 11/03/21 09:02 Completed Pending at discharge Category Date Time Status C-arm Fluoroscopy [id number] Routine Exams 11/02/21 13:00 Taken Leukocyte Reduced RBC Routine Lab 11/02/21 19:41 Results Prothrombin Time INR AM LABS Lab 11/05/21 04:00 Ordered Type and Screen Routine Lab 11/02/21 19:41 Results Radiology Impressions Lumbar Spine CT 10/30/21 08:51 IMPRESSION: 1. Interval kyphoplasty at the L2 level since 10/24/2021. 2. New osseous fragment from the posterior L2 vertebral body. This fragment extends posterior over a width of 18 mm and encroaches into the thecal sac with deformity and stenosis of the central canal and subarticular recesses. There is marked compression upon the thecal sac. 3. Comminuted fracture lines are noted within the L2 vertebral body and there is an acute fracture involving the midline of the posterior elements of L2 with fracture extending into the spinous process. 4. Remote compression fractures with kyphoplasty to L4 and L5. 5. Additional multilevel areas of stenoses and disc protrusions as above. Chest X-Ray 10/30/21 10:48 IMPRESSION: 1. Subsegmental atelectasis in the right middle lobe. 2. No acute infiltrate or other significant finding. Lumbar Spine X-Ray 11/03/21 09:02 IMPRESSION: Images obtained for intraoperative purposes. KUB X-Ray 11/04/21 09:49 IMPRESSION: Imaging findings suggestive of adynamic ileus. Laboratory Results WBC 8.5 10^3/uL (4.0-10.0) 11/04/21 04:26 RBC 3.07 10^6/uL (4.1-5.3) L 11/04/21 04:26 Hgb 10.1 g/dL (11.5-15.3) L 11/04/21 04:26 Hct 29.4 % (37.0-47.0) L 11/04/21 04:26 MCV 95.8 fl (81-99) D 11/04/21 04:26 MCH 32.9 pg (28.0-34.0) 11/04/21 04:26 MCHC 34.4 g/dL (30.0-36.0) D 11/04/21 04:26 RDW 17.3 % (12.1-15.1) H 11/04/21 04:26 Plt Count 311 10^3/cmm (130-400) 11/04/21 04:26 MPV 9.6 fL (7.4-10.4) 11/04/21 04:26 Neut % (Auto) 75.3 % 11/04/21 04:26 Lymph % (Auto) 13.4 % 11/04/21 04:26 [place] % (Auto) 8.6 % 11/04/21 04:26 Eos % (Auto) 1.6 % 11/04/21 04:26 Baso % (Auto) 0.4 % 11/04/21 04:26 Neut # (Auto) 6.41 10^3/uL (1.8-7.7) 11/04/21 04:26 Lymph # (Auto) 1.1 10^3/uL (0.8-4.8) 11/04/21 04:26 [place] # (Auto) 0.7 10^3/uL (0.2-0.9) 11/04/21 04:26 Eos # (Auto) 0.1 10^3/uL (0.0-0.8) 11/04/21 04:26 Baso # (Auto) 0.0 10^3/uL (0.0-0.1) 11/04/21 04:26 Nucleated RBC % (auto) 0 % 11/04/21 04:26 Nucleated RBCs # 0.0 /100WBC 11/04/21 04:26 PT 12.30 SECONDS (12.1-14.9) 11/04/21 04:26 INR 0.89 (0.8-1.2) 11/04/21 04:26 Sodium 127 mmol/L (136-145) L 11/04/21 04:26 Potassium 4.3 mmol/L (3.5-5.1) 11/04/21 04:26 Chloride 91 mmol/L (98-107) L 11/04/21 04:26 Carbon Dioxide 26 mmol/L (22-29) 11/04/21 04:26 Anion Gap 14.3 (5-19) 11/04/21 04:26 BUN 14 mg/dL (8-23) 11/04/21 04:26 Creatinine 0.4 mg/dL (0.5-0.9) L 11/04/21 04:26 GFR Calculation 158.3 mL/min (90-130) H 11/04/21 04:26 Glucose 101 mg/dL (65-115) 11/04/21 04:26 POC Glucose 143 mg/dL (70-110) H 11/02/21 20:49 Calculated Osmolality 265 mOsm/kg (285-295) L 11/04/21 04:26 Calcium 9.3 mg/dL (8.5-10.5) 11/04/21 04:26 Total Bilirubin 0.4 mg/dL (0.15-1.2) 10/30/21 11:20 AST 27 U/L (0-32) 10/30/21 11:20 ALT 21 U/L (0-33) 10/30/21 11:20 Alkaline Phosphatase 99 IU/L (35-105) 10/30/21 11:20 Total Protein 6.6 g/dL (6.6-8.7) 10/30/21 11:20 Albumin 3.3 g/dL (3.5-5.2) L 10/30/21 11:20 Globulin 3.3 g/dL (1.3-4.6) 10/30/21 11:20 Urine Color Yellow (Yellow) 10/30/21 12:34 Urine Appearance Clear (CLEAR) 10/30/21 12:34 Urine pH 8 (5-7) H 10/30/21 12:34 Ur Specific [place] 1.010 (1.005-1.030) 10/30/21 12:34 Urine Protein Neg (Negative) 10/30/21 12:34 Urine Glucose (UA) Norm (Normal) 10/30/21 12:34 Urine Ketones Negative (Negative) 10/30/21 12:34 Urine Blood 2+ (Negative) H 10/30/21 12:34 Urine Nitrate Negative (Negative) 10/30/21 12:34 Urine Bilirubin Neg (Negative) 10/30/21 12:34 Urine Urobilinogen Norm mg/dL (Negative) 10/30/21 12:34 Ur Leukocyte Esterase 1+ (Negative) H 10/30/21 12:34 Urine RBC Rare /hpf (0-2) 10/30/21 12:34 Urine WBC Rare /hpf (0-5) 10/30/21 12:34 Ur Squamous Epith Cells Rare /hpf (0-5) 10/30/21 12:34 Amorphous Sediment Not Reportable 10/30/21 12:34 Urine Bacteria Trace /hpf (NONE) 10/30/21 12:34 Blood Type A Positive 11/02/21 19:41 Rho(D) Type Positive 11/02/21 19:41 Antibody Screen Negative 11/02/21 19:41 Crossmatch See Detail 11/02/21 19:41 Vitals Last Vital Signs Temp 98.1 F 11/04/21 11:49 Pulse 85 11/04/21 11:49 Resp 16 11/04/21 11:49 BP 121/77 11/04/21 11:49 Pulse Ox 98 11/04/21 11:49 O2 Del Method 11/04/21 11:49 O2 Flow Rate 6 11/02/21 16:53 Discharge Plan Discharge Patient Disposition: Xfer SNF Condition: Stable Prescriptions: New Stool Softener-Laxative 8.6-50 mg Tablet 1 tab PO BID Qty: 120 0RF lactulose 20 gram/30 mL solution 15 ml PO DAILY PRN (Reason: constipation) Qty: 1500 1RF Continued All Day Allergy (cetirizine) 10 mg capsule 10 mg PO DAILY PRN (Reason: Allergy Symptoms) albuterol sulfate [Ventolin HFA] 90 mcg/actuation HFA aerosol inhaler 1 inh INHALATION PRN PRN (Reason: Shortness Of Breath) Prolia 60 mg/mL syringe 60 mg SUBCUT .every 6 months azathioprine 50 mg tablet 100 mg PO BID aripiprazole 2 mg tablet 2 mg PO DAILY Qty: 90 1RF Rx Instructions: 340 B calcium carbonate [Calcium 600] 600 mg calcium (1,500 mg) tablet 600 mg PO DAILY Qty: 90 1RF cholecalciferol (vitamin D3) 125 mcg (5,000 unit) capsule 125 mcg PO DAILY Qty: 90 1RF brimonidine 0.2 % drops 1 drp ophthalmic (eye) .COMPLEX 90 Days Qty: 30 1RF Rx Instructions: 1 drp ophthalmic (eye) 1 drop in each eye BID; warfarin 10 mg tablet 10 mg PO .COMPLEX 90 Days Qty: 132 1RF Hold Instructions: Resume on 08/12/21. Rx Instructions: TAKE 10 MG TABLET WITH 5MG TABLET AND 2.5MG TABLET ONCE DAILY TO EQUAL 17.5MG DAILY nortriptyline 25 mg capsule 25 mg PO BEDTIME Qty: 90 1RF atorvastatin 10 mg tablet 10 mg PO DAILY Qty: 90 1RF cyclobenzaprine 10 mg tablet 10 mg PO TID PRN (Reason: muscle spasm) Qty: 60 0RF (DME) Bone Growth Stimulator E0748 See Rx Instructions .Route .MEDSUPPLY Qty: 1 0RF Rx Instructions: As directed tizanidine 4 mg capsule 4 mg PO Q8H PRN (Reason: muscle spasticity) Qty: 30 0RF latanoprost 0.005 % drops 1 drp ophthalmic (eye) BEDTIME citalopram 40 mg tablet 40 mg PO DAILY omeprazole 40 mg capsule,delayed release(DR/EC) 40 mg PO DAILY hydrocodone-acetaminophen 5-325 mg tablet 1 - 2 tab PO .Q4-6H Qty: 40 0RF warfarin 2.5 mg tablet 2.5 mg PO DAILY warfarin 5 mg tablet 5 mg PO DAILY diclofenac sodium 75 mg tablet,delayed release (DR/EC) 75 mg PO Q12H PRN (Reason: Pain) lactulose 10 gram/15 mL solution 10 g PO DAILY Alive Women's 50 Plus Gummy 120 mcg-150 mcg -37.5 mg Tablet,Chewable 1 tab PO DAILY Discharge Orders: Discharge Order (Routine); Ordered 11/04/21 Ordered By: Micaela Villar Referrals: [facility] [Outside] Mckenna Rubin DO [Primary Care Provider] - Discharge Diet: Cardiac Discharge Activity: As per PT/OT instructions Patient Instructions: Opioid Safety Coding Level of Care Code Acute Chg FW DC note Diagnoses Status post lumbar spinal fusion Z98.1 Postoperative anemia D64.9
--- NOTE | 2021-11-04 12:28 | PM.PN ---
Subjective Subjective: No bowel movement since her admission KUB requested this morning which showed adynamic ileus She want to discharge to group home until she has greater than 1 bowel movement in the hospital We will give her lactulose, enema She is already on senna S Nurse has been updated Vitals/I&O/Wt Last Vital Signs Temp 98.1 F 11/04/21 11:49 Pulse 85 11/04/21 11:49 Resp 16 11/04/21 11:49 BP 121/77 11/04/21 11:49 Pulse Ox 98 11/04/21 11:49 O2 Del Method 11/04/21 11:49 O2 Flow Rate 6 11/02/21 16:53 11/03/21 11/04/21 11/04/21 22:59 06:59 14:59 Intake Total 1410 / 1700 120 / 1820 660 / 660 Output Total 70 / 930 670 / 1600 490 / 490 Balance 1340 / 770 -550 / 220 170 / 170 Physical Exam Narrative: Patient is complaining of back pain and spasm Nonfocal neuro exam Abdomen is bloated bowel sounds sluggish to absent Nontender abdomen Distended S1, S2 Looks dehydrated Nonfocal neuro exam Saturating well on room air Urinary Catheter Management: Nava: Cath Placed During This Visit: yes, but has since been removed by the nurse Reason for Continuing Indwelling Catheter: Not indwelling catheter Urinary Catheter Date of Insertion: 10/30/21 Urinary Catheter Time of Insertion: 16:30 Date Urinary Catheter Removed: 11/04/21 Time Urinary Catheter Discontinued: 09:58 Data : 11/04/21 04:26 11/04/21 04:26 A&P Assessment and plan (1) Postoperative anemia: Status: Acute (2) Status post lumbar spinal fusion: Status: Acute (3) Spinal stenosis, lumbar region, with neurogenic claudication: Status: Acute (4) Closed L2 vertebral fracture: Status: Acute Qualifiers: Encounter type: subsequent encounter Fracture morphology: unspecified fracture morphology (5) Compression fracture of L2: Status: Acute Qualifiers: Encounter type: initial encounter Qualified Code(s): S32.020A - Wedge compression fracture of second lumbar vertebra, initial encounter for closed fracture (6) Nicotine dependence, cigarettes, with unspecified nicotine-induced disorders: Status: Acute (7) Lumbar disc prolapse with compression radiculopathy: Status: Acute (8) History of Crohn's disease: Status: Acute (9) KEY (nonalcoholic steatohepatitis): Status: Acute (10) Anxiety and depression: Status: Acute (11) DVT (deep venous thrombosis): Status: Acute Qualifiers: DVT location: lower extremity Affected thrombotic vein of extremity: unspecified vein of extremity Chronicity: chronic Laterality: unspecified laterality Qualified Code(s): I82.509 - 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 of unspecified lower extremity Plan Postoperative anemia: Stable Adynamic ileus: Conservative management Lactulose, clear liquid diet, enema Back pain status post intervention, continue current regimen with bowel regimen We can start her Coumadin starting today with 10 mg INR can be monitored at the group home as well Her drain and Nava catheter has been removed today She is doing well on room air Plan to discharge her next 24 hours if clinically stable Full code Clear liquid diet Serial exam and KUB Attestations Medical Necessity Statement*: Discharge tomorrow if stable Time Spent in Patient Care: 30 Coding Level of Care Code Acute Grinder Needle Tip for g Fwd Diagnoses Postoperative anemia D64.9 Status post lumbar spinal fusion Z98.1 Spinal stenosis, lumbar region, with neurogenic claudication M48.062 Closed L2 vertebral fracture S32.029A Encounter type: subsequent encounter Fracture morphology: unspecified fracture morphology Compression fracture of L2 S32.020A Encounter type: initial encounter Nicotine dependence, cigarettes, with unspecified nicotine-induced disorders F17.219 Lumbar disc prolapse with compression radiculopathy M51.16 History of Crohn's disease Z87.19 KEY (nonalcoholic steatohepatitis) K75.81 Anxiety and depression F41.9; F32.9 DVT (deep venous thrombosis) I82.509 DVT location: lower extremity Affected thrombotic vein of extremity: unspecified vein of extremity Chronicity: chronic Laterality: unspecified laterality
[2021-11-04] MEDS: enoxaparin 80 mg/0.8 mL Syringe SUBCUT (13:38)
[2021-11-04] MEDS: warfarin 10 mg Tablet PO (13:39)
[2021-11-05] VITALS (9 sets, daily range): BP systolic 114–155; BP diastolic 63–82; PULSE 84–102; RESP 16–20; TEMP 36.7–37.2; O2SAT 91–98
[2021-11-05] MEDS: HYDROcodone-acetaminophen 5-325 mg Tablet 1 TAB PO ×5 (02:02→22:13)
[2021-11-05] MEDS: enoxaparin 80 mg/0.8 mL Syringe SUBCUT ×2 (02:03→14:12)
[2021-11-05 05:29] LABS: Basophils % 0.4 %; Eosinophils # 0.1 10^3/uL (0.0-0.8); Eosinophils % 1.7 %; Hematocrit 26.7 % (37.0-47.0); Hemoglobin 9.3 g/dL (11.5-15.3); Lymphocytes # 1.1 10^3/uL (0.8-4.8); Lymphocytes % 12.8 %; Mean Corpuscular HGB Conc 34.8 g/dL (30.0-36.0); Mean Corpuscular Hemoglobin 32.4 pg (28.0-34.0); Mean Platelet Volume 9.6 fL (7.4-10.4); Monocytes # 0.7 10^3/uL (0.2-0.9); Monocytes % 8.8 %; Neutrophils # 6.34 10^3/uL (1.8-7.7); Neutrophils % 75.5 %; Nucleated Red Blood Cells % 0 %; Platelet Count 296 10^3/cmm (130-400); Red Blood Count 2.87 10^6/uL (4.1-5.3); White Blood Count 8.4 10^3/uL (4.0-10.0)
[2021-11-05 05:40] LABS: INR 1.06 (0.8-1.2)
[2021-11-05 06:01] LABS: Anion Gap 15.5 (5-19); Blood Urea Nitrogen 11 mg/dL (8-23); Carbon Dioxide 22 mmol/L (22-29); Chloride 93 mmol/L (98-107); Glomerular Filtration Rate 220.6 mL/min (90-130); Glucose 110 mg/dL (65-115); Magnesium 1.7 mg/dL (1.7-2.3); Osmolality Calculated 262 mOsm/kg (285-295); Potassium 4.5 mmol/L (3.5-5.1); Sodium 126 mmol/L (136-145)
--- NOTE | 2021-11-05 06:54 | XR_ITS ---
WS: [id number] KUB, AP view, 11/05/2021 Clinical Data: ileus Comparison: KUB, 11/04/2021 Findings: No abnormal intraabdominal masses or calcifications are seen. There are dilated small bowel loops and loops of colon most consistent with a generalized ileus.The patient's headache posterior thoracolumb ar fusion from T11 through L4. There is a generator for epidural stimulator wires overlying the left side of the abdomen obscuring detail over L3. With bilateral pedicle screws and connecting rods. Vert ebroplasty cement is seen in multiple vertebral bodies. XR/XR KUB portable [id number] Impression: 1. Dilated loops of small bowel and colon most consistent with generalized ileu s. 2. Thoracolumbar fusion.
--- NOTE | 2021-11-05 07:03 | P.PN_ITS ---
Subjective Subjective: POD 3 Patient resting comfortably she is mobilizing with physical therapy yesterday. Denies any chest pain, shortness of breath, headaches. Vitals/I&O/Wt Last Vital Signs Temp 99.0 F 11/05/21 04:00 Pulse 90 11/05/21 04:00 Resp 18 11/05/21 04:00 BP 155/82 11/05/21 04:00 Pulse Ox 98 11/05/21 04:00 O2 Del Method 11/04/21 20:47 O2 Flow Rate 6 11/02/21 16:53 11/04/21 11/05/21 11/05/21 22:59 06:59 14:59 Intake Total 120 / 900 Output Total 340 / 830 Balance 120 / 410 -340 / 70 Physical Exam Narrative: Patient presents alert and oriented x3 with a good general appearance normal mood and affect.? Normal coordination normal stability.? Mild tenderness around the incisional site with the incision appear to be healing nicely.?No signs of erythema or drainage.? No signs of infection.? Patient denies any fevers or chills.? 3/5 motor strength both lower extremities with negative straight leg raise bilaterally.? Calves are supple no medial thigh tenderness.? Pulses are 2+ at the dorsalis pedis and posterior tibial region.? Good capillary refill throughout normal sensation light touch both lower extremities. Urinary Catheter Management: Nava: Cath Placed During This Visit: yes, but has since been removed by the nurse Reason for Continuing Indwelling Catheter: Not indwelling catheter Urinary Catheter Date of Insertion: 10/30/21 Urinary Catheter Time of Insertion: 16:30 Date Urinary Catheter Removed: 11/04/21 Time Urinary Catheter Discontinued: 09:58 Data : 11/05/21 05:04 11/05/21 05:04 A&P Assessment and plan (1) Status post lumbar spinal fusion: We will await social service continue mobilizing with physical therapy. Continue incentive spirometry for pulmonary toilet. Status: Acute (2) Postoperative anemia: Status: Acute Attestations Medical Necessity Statement*: defer to medical team Coding Level of Care Code Acute Boat Hoist Operator for Mariang Fwd Diagnoses Status post lumbar spinal fusion Z98.1 Postoperative anemia D64.9
[2021-11-05] MEDS: docusate sodium 100 mg Capsule PO ×2 (08:33→17:29)
[2021-11-05] MEDS: brimonidine 0.2% Op Soln 5 mL Btl 1 DROP EYE-BOTH ×2 (08:33→17:30)
[2021-11-05] MEDS: pantoprazole DR 40 mg Tablet PO (08:33)
[2021-11-05] MEDS: sennosides-docusate Tablet 1 TAB PO ×2 (08:33→17:29)
[2021-11-05] MEDS: lactulose oral liq 20 gm/30 mL UDC PO (09:09)
[2021-11-05] MEDS: ARIPiprazole 2 mg Tablet PO (09:09)
[2021-11-05 09:25] LABS: SARS Covid-2 Antigen Negative (Negative)
--- NOTE | 2021-11-05 11:46 | PM.PN ---
Subjective Subjective: Patient had 1 large bowel movement today However KUB still showing ileus We might plan to discharge her tomorrow Drain and Nava cath removed yesterday Patient is endorsing improvement in her pain management At ease at rest Vitals/I&O/Wt Last Vital Signs Temp 98.3 F 11/05/21 11:25 Pulse 85 11/05/21 11:25 Resp 20 H 11/05/21 11:25 BP 130/66 11/05/21 11:25 Pulse Ox 97 11/05/21 11:25 O2 Del Method 11/05/21 11:25 O2 Flow Rate 6 11/02/21 16:53 11/04/21 11/05/21 11/05/21 22:59 06:59 14:59 Intake Total 120 / 900 120 / 120 Output Total 340 / 830 Balance 120 / 410 -340 / 70 120 / 120 Physical Exam Narrative: This morning patient is sitting comfortably in her bed Friend at the bedside Abdomen distended however nontender Bowel sounds hypoactive S1, S2 Patient saturating well on room air Pleasant cooperative Nonfocal neuro exam No audible stridor or wheezing No weakness of lower extremity She is able to participate with PT Urinary Catheter Management: Nava: Cath Placed During This Visit: yes, but has since been removed by the nurse Reason for Continuing Indwelling Catheter: Not indwelling catheter Urinary Catheter Date of Insertion: 10/30/21 Urinary Catheter Time of Insertion: 16:30 Date Urinary Catheter Removed: 11/04/21 Time Urinary Catheter Discontinued: 09:58 Data : 11/05/21 05:04 11/05/21 05:04 A&P Assessment and plan (1) Postoperative anemia: Status: Acute (2) Status post lumbar spinal fusion: Status: Acute (3) Spinal stenosis, lumbar region, with neurogenic claudication: Status: Acute (4) Closed L2 vertebral fracture: Status: Acute Qualifiers: Encounter type: subsequent encounter Fracture morphology: unspecified fracture morphology (5) Compression fracture of L2: Status: Acute Qualifiers: Encounter type: initial encounter Qualified Code(s): S32.020A - Wedge compression fracture of second lumbar vertebra, initial encounter for closed fracture (6) Postoperative ileus: Status: Acute Plan Postop ileus Patient had a large bowel movement today she was given lactulose, senna S and MiraLAX KUB still showing ileus I would like to keep her here 1 more day, hydrate her, discharge her to snf probably tomorrow Postop anemia: Hemoglobin stable Hemodynamically stable Nava catheter drain has been removed Continue Coumadin INR can be monitored at the snf Patient is complaining of numbness of left leg however no signs of ischemic ulcers Likely nerve pain Full code Advance diet to GI soft Attestations Medical Necessity Statement*: Discharge tomorrow Time Spent in Patient Care: 30 Coding Level of Care Code Acute Microfilm Duplicating Unit Supervisor for g Fwd Diagnoses Postoperative anemia D64.9 Status post lumbar spinal fusion Z98.1 Spinal stenosis, lumbar region, with neurogenic claudication M48.062 Closed L2 vertebral fracture S32.029A Encounter type: subsequent encounter Fracture morphology: unspecified fracture morphology Compression fracture of L2 S32.020A Encounter type: initial encounter Postoperative ileus K91.89; K56.7
[2021-11-05] MEDS: morphine 4 mg/mL SDV 1 mL IVP (12:19)
[2021-11-05] MEDS: alum-mag-hydroxide-sime 30 mL UDC PO ×2 (12:19→19:39)
[2021-11-05] MEDS: warfarin 10 mg Tablet PO (14:12)
[2021-11-06] VITALS: BP 115/65; PULSE 98; RESP 18; TEMP 36.8; O2SAT 92
[2021-11-06] MEDS: enoxaparin 80 mg/0.8 mL Syringe SUBCUT ×2 (02:17→13:36)
[2021-11-06 04:00] VITALS: BP 137/80; PULSE 88; RESP 18; TEMP 37.1; O2SAT 97
[2021-11-06] MEDS: HYDROcodone-acetaminophen 5-325 mg Tablet 1 TAB PO ×2 (05:33→13:36)
[2021-11-06 07:54] VITALS: BP 139/74; PULSE 79; RESP 17; TEMP 36.7; O2SAT 95
--- NOTE | 2021-11-06 07:54 | XR_ITS ---
WS: [id number] KUB, AP portable supine view, 11/06/2021 Clinical Data: ileus Comparison: KUB, 11/05/2021 Findings: No abnormal intraabdominal masses or calcifications are seen. The air in the small bowel and colon javier s diminished slightly. The thoracolumbar fusion remains the same. The pacemaker generator with wires leading into the epidural space remains the same position. Vertebroplasty cement is seen in multiple vertebral bodies. XR/XR KUB portable [id number] Impression: Slight decrease in air in the small bowel and colon probably represents improvi ng ileus.
[2021-11-06 08:00] VITALS: PULSE 81; RESP 18; O2SAT 98
--- NOTE | 2021-11-06 08:26 | P.PN_ITS ---
Subjective Subjective: POD 4 Patient is anxious to transition from the hospital. She states she had a bowel movement yesterday states her leg pain is somewhat improved she describes thigh pain. She has a spinal cord stimulator that she is going to adjust the settings once she has charge the battery. She will continue to mobilize with a walker. Denies any shortness of breath, chest pain, lightheadedness. Vitals/I&O/Wt Last Vital Signs Temp 98.0 F 11/06/21 07:54 Pulse 79 11/06/21 07:54 Resp 17 11/06/21 07:54 BP 139/74 11/06/21 07:54 Pulse Ox 95 11/06/21 07:54 O2 Del Method 11/06/21 07:54 O2 Flow Rate 6 11/02/21 16:53 11/05/21 11/06/21 11/06/21 22:59 06:59 14:59 Intake Total 480 / 600 Balance 480 / 600 Physical Exam Narrative: She is alert and orient x3 she has good general appearance normal normal affect. Incisions are clean and dry. Good sensation light touch down both lower extremities fires in all motor groups with good strength. Wiggles all digits dorsalis pedis posterior pulses are palpable calves are supple. Urinary Catheter Management: Nava: Cath Placed During This Visit: yes, but has since been removed by the nurse Reason for Continuing Indwelling Catheter: Not indwelling catheter Urinary Catheter Date of Insertion: 10/30/21 Urinary Catheter Time of Insertion: 16:30 Date Urinary Catheter Removed: 11/04/21 Time Urinary Catheter Discontinued: 09:58 Data : 11/05/21 05:04 11/05/21 05:04 A&P Assessment and plan (1) Status post lumbar spinal fusion: Encouraged her to continue mobilization which I discussed with the patient will help gain her strength as well as help the motility to move her bowels. Once medically stable as result of the postop ileus is okay from our standpoint to discharge. We will see her back in the office in 1 week's time. Status: Acute (2) Postoperative anemia: Status: Acute Attestations Medical Necessity Statement*: defer to medical team Coding Level of Care Code Acute Critical Care Physician for Misti Elizabeth Diagnoses Status post lumbar spinal fusion Z98.1 Postoperative anemia D64.9
[2021-11-06 08:32] VITALS: RESP 18
[2021-11-06] MEDS: docusate sodium 100 mg Capsule PO (08:32)
[2021-11-06] MEDS: polyethylene glycol 3350 Pkt 17 gm PO (08:32)
[2021-11-06] MEDS: lactulose oral liq 20 gm/30 mL UDC PO (08:32)
[2021-11-06] MEDS: ARIPiprazole 2 mg Tablet PO (08:32)
[2021-11-06] MEDS: morphine 4 mg/mL SDV 1 mL IVP (08:32)
[2021-11-06] MEDS: sennosides-docusate Tablet 1 TAB PO (08:32)
[2021-11-06] MEDS: pantoprazole DR 40 mg Tablet PO (08:35)
--- NOTE | 2021-11-06 09:09 | PC.SOCIAL ---
IMM update IMM updated with patient. Verbalized an understanding. Copy Pg 2 provided. Initialled, dated, timed, and placed in chart
[2021-11-06] MEDS: brimonidine 0.2% Op Soln 5 mL Btl 1 DROP EYE-BOTH (10:40)
--- NOTE | 2021-11-06 10:42 | P.DS_ITS ---
Discharge Providers Date of Admission: 10/30/21 12:23 Date of Discharge: November 06, 2021 Attending Provider at Admission: Micaela Villar MD Attending Provider at Discharge: Micaela Villar MD Primary Care Provider: Mckenna Rubin DO Diagnoses at Discharge Discharge Diagnosis (1) Status post lumbar spinal fusion: Status: Acute (2) Postoperative anemia: Status: Acute Reason for Visit Reason for Visit: LOWER BACK PAIN Hospital Course Hospital Course 71-year-old female who was admitted for management and evaluation of L2 compression fracture Dr. Conte was consulted, status post T11-L4 posterior spinal fusion fracture reduction of L2 with bone marrow aspirate from right iliac crest 11/02. Postoperatively patient developed adynamic ileus. She was given lactulose and senna. She had 1 big bowel movement on 11/05, 11/06 her ileus seems to be getting better. She is tolerating her diet, no active nausea or vomiting however she feels bloated whenever she eats. I asked patient to keep herself on full liquid for next 24 hours and advance her diet gradually. She should have at least 1 bowel movement every 48 hours, continue lactulose twice a day along with senna S. She will continue her Coumadin for her factor V Leyden mutation history, her INR should be above 2. [facility]. Her sodium fluctuates between 126-130, I am anticipating this will improve with better p.o. intake she has not eaten much during her hospitalization first because of the surgery and and then because of ileus. COVID-19 negative Physical Exam Narrative: Patient had her clear liquid diet Active emesis Abdomen distended however nontender Bowel sounds hyperactive S1, S2 Patient saturating well on room air Pleasant cooperative Nonfocal neuro exam No audible stridor or wheezing No weakness of lower extremity Urinary Catheter Management: Nava: Cath Placed During This Visit: yes, but has since been removed by the nurse Reason for Continuing Indwelling Catheter: Not indwelling catheter Urinary Catheter Date of Insertion: 10/30/21 Urinary Catheter Time of Insertion: 16:30 Date Urinary Catheter Removed: 11/04/21 Time Urinary Catheter Discontinued: 09:58 Discharge Data Studies Completed and Pending Completed Studies During Hospitalization Category Date Time Status CT lumbar spine wo con* [id number] Urgent Cat Scan 10/30/21 08:51 Completed XR KUB portable [id number] Routine Exams 11/04/21 09:49 Completed XR KUB portable [id number] Routine Exams 11/05/21 06:54 Completed XR KUB portable [id number] Routine Exams 11/06/21 07:54 Completed XR chest 1V portable [id number] Urgent Exams 10/30/21 10:48 Completed XR lumbar spine 1V port [id number] Routine Exams 11/03/21 09:02 Completed Radiology Impressions Lumbar Spine CT 10/30/21 08:51 IMPRESSION: 1. Interval kyphoplasty at the L2 level since 10/24/2021. 2. New osseous fragment from the posterior L2 vertebral body. This fragment extends posterior over a width of 18 mm and encroaches into the thecal sac with deformity and stenosis of the central canal and subarticular recesses. There is marked compression upon the thecal sac. 3. Comminuted fracture lines are noted within the L2 vertebral body and there is an acute fracture involving the midline of the posterior elements of L2 with fracture extending into the spinous process. 4. Remote compression fractures with kyphoplasty to L4 and L5. 5. Additional multilevel areas of stenoses and disc protrusions as above. Chest X-Ray 10/30/21 10:48 IMPRESSION: 1. Subsegmental atelectasis in the right middle lobe. 2. No acute infiltrate or other significant finding. Lumbar Spine X-Ray 11/03/21 09:02 IMPRESSION: Images obtained for intraoperative purposes. KUB X-Ray 11/06/21 07:54 Impression: Slight decrease in air in the small bowel and colon probably represents improving ileus. Laboratory Results WBC 8.4 10^3/uL (4.0-10.0) 11/05/21 05:04 RBC 2.87 10^6/uL (4.1-5.3) L 11/05/21 05:04 Hgb 9.3 g/dL (11.5-15.3) L 11/05/21 05:04 Hct 26.7 % (37.0-47.0) L 11/05/21 05:04 MCV 93.0 fl (81-99) 11/05/21 05:04 MCH 32.4 pg (28.0-34.0) 11/05/21 05:04 MCHC 34.8 g/dL (30.0-36.0) 11/05/21 05:04 RDW 17.0 % (12.1-15.1) H 11/05/21 05:04 Plt Count 296 10^3/cmm (130-400) 11/05/21 05:04 MPV 9.6 fL (7.4-10.4) 11/05/21 05:04 Neut % (Auto) 75.5 % 11/05/21 05:04 Lymph % (Auto) 12.8 % 11/05/21 05:04 Barren % (Auto) 8.8 % 11/05/21 05:04 Eos % (Auto) 1.7 % 11/05/21 05:04 Baso % (Auto) 0.4 % 11/05/21 05:04 Neut # (Auto) 6.34 10^3/uL (1.8-7.7) 11/05/21 05:04 Lymph # (Auto) 1.1 10^3/uL (0.8-4.8) 11/05/21 05:04 Barren # (Auto) 0.7 10^3/uL (0.2-0.9) 11/05/21 05:04 Eos # (Auto) 0.1 10^3/uL (0.0-0.8) 11/05/21 05:04 Baso # (Auto) 0.0 10^3/uL (0.0-0.1) 11/05/21 05:04 Nucleated RBC % (auto) 0 % 11/05/21 05:04 Nucleated RBCs # 0.0 /100WBC 11/05/21 05:04 PT 14.20 SECONDS (12.1-14.9) 11/05/21 05:04 INR 1.06 (0.8-1.2) 11/05/21 05:04 Sodium 126 mmol/L (136-145) L 11/05/21 05:04 Potassium 4.5 mmol/L (3.5-5.1) 11/05/21 05:04 Chloride 93 mmol/L (98-107) L 11/05/21 05:04 Carbon Dioxide 22 mmol/L (22-29) 11/05/21 05:04 Anion Gap 15.5 (5-19) 11/05/21 05:04 BUN 11 mg/dL (8-23) 11/05/21 05:04 Creatinine 0.3 mg/dL (0.5-0.9) L 11/05/21 05:04 GFR Calculation 220.6 mL/min (90-130) H 11/05/21 05:04 Glucose 110 mg/dL (65-115) 11/05/21 05:04 POC Glucose 143 mg/dL (70-110) H 11/02/21 20:49 Calculated Osmolality 262 mOsm/kg (285-295) L 11/05/21 05:04 Calcium 9.0 mg/dL (8.5-10.5) 11/05/21 05:04 Magnesium 1.7 mg/dL (1.7-2.3) 11/05/21 05:04 Total Bilirubin 0.4 mg/dL (0.15-1.2) 10/30/21 11:20 AST 27 U/L (0-32) 10/30/21 11:20 ALT 21 U/L (0-33) 10/30/21 11:20 Alkaline Phosphatase 99 IU/L (35-105) 10/30/21 11:20 Total Protein 6.6 g/dL (6.6-8.7) 10/30/21 11:20 Albumin 3.3 g/dL (3.5-5.2) L 10/30/21 11:20 Globulin 3.3 g/dL (1.3-4.6) 10/30/21 11:20 Urine Color Yellow (Yellow) 10/30/21 12:34 Urine Appearance Clear (CLEAR) 10/30/21 12:34 Urine pH 8 (5-7) H 10/30/21 12:34 Ur Specific [place] 1.010 (1.005-1.030) 10/30/21 12:34 Urine Protein Neg (Negative) 10/30/21 12:34 Urine Glucose (UA) Norm (Normal) 10/30/21 12:34 Urine Ketones Negative (Negative) 10/30/21 12:34 Urine Blood 2+ (Negative) H 10/30/21 12:34 Urine Nitrate Negative (Negative) 10/30/21 12:34 Urine Bilirubin Neg (Negative) 10/30/21 12:34 Urine Urobilinogen Norm mg/dL (Negative) 10/30/21 12:34 Ur Leukocyte Esterase 1+ (Negative) H 10/30/21 12:34 Urine RBC Rare /hpf (0-2) 10/30/21 12:34 Urine WBC Rare /hpf (0-5) 10/30/21 12:34 Ur Squamous Epith Cells Rare /hpf (0-5) 10/30/21 12:34 Amorphous Sediment Not Reportable 10/30/21 12:34 Urine Bacteria Trace /hpf (NONE) 10/30/21 12:34 SARS-CoV-2 Ag (Rapid) Negative (Negative) 11/05/21 08:49 Blood Type A Positive 11/02/21 19:41 Rho(D) Type Positive 11/02/21 19:41 Antibody Screen Negative 11/02/21 19:41 Crossmatch See Detail 11/02/21 19:41 Vitals Last Vital Signs Temp 98.0 F 11/06/21 07:54 Pulse 79 11/06/21 07:54 Resp 18 11/06/21 08:32 BP 139/74 11/06/21 07:54 Pulse Ox 95 11/06/21 07:54 O2 Del Method 11/06/21 07:54 O2 Flow Rate 6 11/02/21 16:53 Discharge Plan Discharge Patient Disposition: Xfer [facility] Condition: Stable Prescriptions: New Stool Softener-Laxative 8.6-50 mg Tablet 1 tab PO BID Qty: 120 0RF sennosides-docusate sodium [Senna-S] 8.6-50 mg tablet 1 tab-cap PO DAILY Qty: 30 0RF lactulose [Constulose] 10 gram/15 mL solution 10 g PO DAILY Qty: 946 0RF Continued All Day Allergy (cetirizine) 10 mg capsule 10 mg PO DAILY PRN (Reason: Allergy Symptoms) albuterol sulfate [Ventolin HFA] 90 mcg/actuation HFA aerosol inhaler 1 inh INHALATION PRN PRN (Reason: Shortness Of Breath) Prolia 60 mg/mL syringe 60 mg SUBCUT .every 6 months azathioprine 50 mg tablet 100 mg PO BID aripiprazole 2 mg tablet 2 mg PO DAILY Qty: 90 1RF Rx Instructions: 340 B calcium carbonate [Calcium 600] 600 mg calcium (1,500 mg) tablet 600 mg PO DAILY Qty: 90 1RF cholecalciferol (vitamin D3) 125 mcg (5,000 unit) capsule 125 mcg PO DAILY Qty: 90 1RF brimonidine 0.2 % drops 1 drp ophthalmic (eye) .COMPLEX 90 Days Qty: 30 1RF Rx Instructions: 1 drp ophthalmic (eye) 1 drop in each eye BID; warfarin 10 mg tablet 10 mg PO .COMPLEX 90 Days Qty: 132 1RF Hold Instructions: Resume on 08/12/21. Rx Instructions: TAKE 10 MG TABLET WITH 5MG TABLET AND 2.5MG TABLET ONCE DAILY TO EQUAL 17.5MG DAILY nortriptyline 25 mg capsule 25 mg PO BEDTIME Qty: 90 1RF atorvastatin 10 mg tablet 10 mg PO DAILY Qty: 90 1RF cyclobenzaprine 10 mg tablet 10 mg PO TID PRN (Reason: muscle spasm) Qty: 60 0RF (DME) Bone Growth Stimulator E0748 See Rx Instructions .Route .MEDSUPPLY Qty: 1 0RF Rx Instructions: As directed tizanidine 4 mg capsule 4 mg PO Q8H PRN (Reason: muscle spasticity) Qty: 30 0RF latanoprost 0.005 % drops 1 drp ophthalmic (eye) BEDTIME citalopram 40 mg tablet 40 mg PO DAILY omeprazole 40 mg capsule,delayed release(DR/EC) 40 mg PO DAILY hydrocodone-acetaminophen 5-325 mg tablet 1 - 2 tab PO .Q4-6H Qty: 40 0RF warfarin 2.5 mg tablet 2.5 mg PO DAILY warfarin 5 mg tablet 5 mg PO DAILY diclofenac sodium 75 mg tablet,delayed release (DR/EC) 75 mg PO Q12H PRN (Reason: Pain) Alive Women's 50 Plus Gummy 120 mcg-150 mcg -37.5 mg Tablet,Chewable 1 tab PO DAILY Discontinued lactulose 10 gram/15 mL solution 10 g PO DAILY Discharge Orders: Discharge Order (Routine); Ordered 11/06/21 Ordered By: Micaela Villar Referrals: [facility] [Outside] Mckenna Rubin DO [Primary Care Provider] - Alexis Conte DO [Physician] - 1 week Discharge Diet: As Directed and Full LIquid Discharge Activity: As per PT/OT instructions Patient Instructions: Opioid Safety Activity Restrictions/Additional Instructions: Thank you for choosing [facility] for your care! The following is a list of instructions, from your provider, to follow upon your discharge to ensure you have the optimal recovery from your recent injury or surgery. Follow-up care is a stewart part of your treatment and safety. Be sure to make and go to all appointments and call your doctor if you are having problems. If you do not already have a follow-up appointment made, call Dr. Conte's] office in the next 1-3 days to make follow up appointment for 1 week at [phone]. It is also a good idea to know your test results and keep a list of the medicines you take. Medications will be prescribed for you at your provider's discretion. These medications are to be used as instructed; if they are taken more often that prescribed they will not be refilled early and in most cases will not be refilled at all. > When a refill is needed, you should contact kenneth camarena 2-3 business days before your prescription runs out. Medications will NOT be refilled by special education secretary providers after hours! > Many pain medications contain Tylenol (Acetaminophen). Do not consume more than 4,000 mg of Tylenol per day in total with any combination of medications. > Pain medications can cause constipation. Please use an over the counter stool softener as directed, while taking pain medications. Consult your local pharmacist with questions or recommendations on stool softeners. If constipation persists, contact our office or your primary care provider. > While under our care, you are not to receive pain medications or other controlled substances from any other provider unless our office is notified and approves. Any attempts to do so will result in refusal to prescribe any further pain medications and possible dismissal from our practice. ? Walking is essential for the healing process after surgery. We would like you to slowly advance your walking. This should be done on relatively flat clear ground (inside or out) or can be done on a treadmill. Remember this goal does not have to happen all at once, slowly increase your distance and duration. This can be broken into more more than one walk per day as tolerated. Patients who walk as directed after surgery rarely require Physical Therapy. In the unlikely event this issue arises your provider will direct hospital staff to make the appropriate arrangements. ? No lifting over 5 pounds {a gallon of milk) or bending/twisting until further notice. Each of these activities places an unnecessary amount of stress onto the body and can impede the delicate healing process. > Instead of bending at the waist, keep your back straight and bend at the knees. > Instead of twisting your torso, keep your back straight and turn your entire body with your feet. ? You may sleep in any position which makes you comfortable. Many patients find comfort sleeping in a reclining chair. It is not abnormal to have difficulty sleeping for the first several weeks following your surgery. We recommend trying Benadry! or Tylenol PM as directed to help with your sleeping difficulties. Both medications are over the counter and available without prescription. ? NO SMOKING!!! Smoking dramatically increases the probability of developing postoperative wound infections. ? Common complaints after lumbar and/or thoracic spine surgery include, but are not limited to: numbness and/or tingling in the legs, pain around the incision and surrounding tissues, muscle spasms, or stiffness of the middle to low back. Contact our office if these symptoms persist or if an acute change occurs. ? No driving for the first 3-5days, and not while taking narcotics until seen at your follow-up appointment and cleared. There are no restrictions for riding on short trips, however if you take a longer trip, arrangements should be made to make regular stops to get out of the vehicle and stretch . ? Swelling is an unfortunate event that will take place with any surgery and is the primary source of your postoperative discomfort. While walking and regular approved activities helps control inflammation, there are additional steps you can take to minimize swelling. > Place ice over the surgical site and surrounding tissue for twenty minutes, followed by applying a low/medium heat (heating pad) for an additional twenty minutes every 1-2 hours as needed for painrelief. > You may use of over the counter anti-inflammatory medications (Ibuprofen, Motrin, Aleve, Advil, etc) as directed on the package label. These types of medicines will significantly reduce the amount of discomfort you experience after surgery from swelling. It should be noted that if you have and allergy to any of these medications, or a history of ulcers or kidney disease you should consult you primary care provider prior to starting these medications. Discharge Attestations Time Spent in Discharge Care*: less than 30 min Quality Metrics Clinical Quality Measures [ No reported AMI, CVA or VTE this stay] Coding Level of Care Code Acute Chg FW DC note Diagnoses Status post lumbar spinal fusion Z98.1 Postoperative anemia D64.9
[2021-11-06 11:46] VITALS: BP 146/83; PULSE 81; RESP 18; TEMP 36.6; O2SAT 98
[2021-11-06] MEDS: warfarin 10 mg Tablet PO (13:36)
== END 2021-11-06 15:33 | disposition skilled nursing facility (03) | DRG 457 ==
LOC: ER 13:36 → MEDSURG 13:43
PROVIDERS: Orthopaedic Surgery; Physician Assistant; Admitting Provider Internal Medicine; Emergency Provider Family Medicine; PCP Family Medicine; Visit Provider Internal Medicine
PROC: 0RG607J Fusion of Thoracic Vertebral Joint with Autologous Tissue Substitute, Posterior Approach, Anterior Column, Open Approach (ICD-10-PCS; principal; 2021-11-02 13:00)
PROC: 0RG607J Fusion of Thoracic Vertebral Joint with Autologous Tissue Substitute, Posterior Approach, Anterior Column, Open Approach (ICD-10-PCS; 2021-11-02 13:00)
DX: M80.88XA Other osteoporosis with current pathological fracture, vertebra(e), initial encounter for fracture (principal); D62 Acute posthemorrhagic anemia; S32.029A Unspecified fracture of second lumbar vertebra, initial encounter for closed fracture; D68.51 Activated protein C resistance; K50.90 Crohn's disease, unspecified, without complications; K56.0 Paralytic ileus; M54.16 Radiculopathy, lumbar region; M48.062 Spinal stenosis, lumbar region with neurogenic claudication; Z86.73 Personal history of transient ischemic attack (TIA), and cerebral infarction without residual deficits; F41.8 Other specified anxiety disorders; J45.909 Unspecified asthma, uncomplicated; E78.5 Hyperlipidemia, unspecified; Z79.891 Long term (current) use of opiate analgesic; K75.81 Nonalcoholic steatohepatitis (NASH); F17.210 Nicotine dependence, cigarettes, uncomplicated; Z96.82 Presence of neurostimulator; Z79.01 Long term (current) use of anticoagulants; Z79.51 Long term (current) use of inhaled steroids
CPT/HCPCS: 36415; 36416; 51702; 71045; 72020; 72131; 74018; 76000; 80048; 80053; 81001; 82962; 83735; 85025; 85610; 86850; 86900; 86920; 87426; 93005; 94760; 96365; 96372; 96375; 97110; 97116; 97162; 97530; 99285; C1713; C9359; J0690; J1100; J1170; J1644; J1650; J1885; J2270; J2360; J2370; J2405; J2704; J2710; J3010; J3370; J3430; J3490; J7030

== ENCOUNTER → 2021-11-13 08:40 | Outpatient (BNVA) | payer MEDICARE, OTHER, SELFPAY | PROVIDERS: PCP Family Medicine; Visit Provider Orthopaedic Surgery | DX: M80.00XA Age-related osteoporosis with current pathological fracture, unspecified site, initial encounter for fracture (principal); X58.XXXA Exposure to other specified factors, initial encounter; Z87.891 Personal history of nicotine dependence; Z47.89 Encounter for other orthopedic aftercare; Z98.1 Arthrodesis status | CPT/HCPCS: 99024; 99204 ==

== ENCOUNTER → 2021-11-18 10:14 | Outpatient (BNVA) | payer MEDICARE, OTHER, SELFPAY | PROVIDERS: PCP Family Medicine; Visit Provider Orthopaedic Surgery | DX: Z47.89 Encounter for other orthopedic aftercare (principal); Z98.1 Arthrodesis status | CPT/HCPCS: 99024 ==

== ENCOUNTER → 2021-11-25 13:58 | Outpatient (BNVA) | payer MEDICARE, OTHER, SELFPAY | PROVIDERS: PCP Family Medicine; Visit Provider Orthopaedic Surgery | DX: Z47.89 Encounter for other orthopedic aftercare (principal); Z98.1 Arthrodesis status | CPT/HCPCS: 99024 ==

== ENCOUNTER → 2021-12-16 13:05 | Outpatient (BNVA) | payer MEDICARE, OTHER, SELFPAY | PROVIDERS: PCP Family Medicine; Visit Provider Orthopaedic Surgery | DX: Z47.89 Encounter for other orthopedic aftercare (principal); Z98.1 Arthrodesis status; D64.9 Anemia, unspecified | CPT/HCPCS: 72100; 85025; 99024 ==

== ENCOUNTER → 2022-01-27 14:10 | Outpatient (BNVA) | payer MEDICARE, OTHER, SELFPAY | PROVIDERS: PCP Family Medicine; Visit Provider Orthopaedic Surgery | DX: Z47.89 Encounter for other orthopedic aftercare (principal); Z98.1 Arthrodesis status | CPT/HCPCS: 72100; 99024; 99212 ==

== ENCOUNTER 2022-01-28 14:51 | Outpatient (CLI) | payer MEDICARE, OTHER, SELFPAY ==
--- NOTE | 2022-01-28 14:59 | MM_ITS ---
WS: [id number] BILATERAL 3D TOMOSYNTHESIS DIGITAL DIAGNOSTIC MAMMOGRAPHY WITH CAD CLINICAL INFORMATION: history of breast cancer HISTORY: COMPARISON: December 27, 2020 TECHNIQUE: Bilateral CC, MLO, and ML views. FINDINGS: RIGHT breast implant capsular calcification. Prior partial RIGHT lumpectomy with parenchyma l scarring. Scattered fibroglandular densities bilaterally. Dystrophic and secretory calcifications bilaterally. No suspicious focal mass, asymmetry, calcifications, or architectural distortion. No evidence of nafisa gnancy. MM/[place] [id number] IMPRESSION: BI-RADS: 2-Benign FOLLOW UP: 1 Year Follow-up Recommend return to annual diagnostic mammography.
== END 2022-01-28 14:52 | disposition home or self-care (01) ==
LOC: RAD 14:52
PROVIDERS: PCP Family Medicine; Visit Provider Family Medicine
DX: Z85.3 Personal history of malignant neoplasm of breast (principal)
CPT/HCPCS: 77062

== ENCOUNTER 2022-02-17 09:36 | Outpatient (CLI) | payer MEDICARE, OTHER, SELFPAY | END 2022-02-17 09:37 | disposition home or self-care (01) | LOC: LAB 09:37 | PROVIDERS: PCP Family Medicine; Visit Provider Family Medicine | DX: E78.5 Hyperlipidemia, unspecified (principal) | CPT/HCPCS: 80053; 80061; 85025 ==

== ENCOUNTER → 2022-05-14 13:13 | Outpatient (BNVA) | payer MEDICARE, OTHER, SELFPAY | PROVIDERS: PCP Family Medicine; Visit Provider Orthopaedic Surgery | DX: Z47.89 Encounter for other orthopedic aftercare (principal); Z98.1 Arthrodesis status | CPT/HCPCS: 72100; 99213 ==

== ENCOUNTER → 2022-05-22 11:41 | Outpatient (BNVA) | payer MEDICARE, OTHER, SELFPAY | PROVIDERS: PCP Family Medicine; Visit Provider Internal Medicine | DX: M80.00XA Age-related osteoporosis with current pathological fracture, unspecified site, initial encounter for fracture (principal); K50.90 Crohn's disease, unspecified, without complications | CPT/HCPCS: 80053; 82306; 99214 ==

== ENCOUNTER 2022-05-26 10:33 | Oncology outpatient (recurring) (ONCR) | payer MEDICARE, OTHER, SELFPAY ==
[2022-05-26 10:33] VITALS: BP 136/71; PULSE 84; RESP 16; TEMP 36.2; O2SAT 98
[2022-05-26] MEDS: denosumab 60 mg SDV SUBCUT (10:34)
== END 2022-06-02 23:59 | disposition home or self-care (01) ==
PROVIDERS: PCP Family Medicine; Visit Provider Internal Medicine
DX: M81.0 Age-related osteoporosis without current pathological fracture (principal); Z79.899 Other long term (current) drug therapy
CPT/HCPCS: 96372; J0897

== ENCOUNTER 2022-06-04 09:40 | Outpatient (RCR) | payer MEDICARE, OTHER, SELFPAY | END 2022-07-03 23:59 | disposition home or self-care (01) | LOC: SPT 09:40 | PROVIDERS: PCP Family Medicine; Visit Provider Orthopaedic Surgery | DX: Z98.1 Arthrodesis status (principal) | CPT/HCPCS: 97113; 97161 ==

== ENCOUNTER 2022-06-08 12:22 | Outpatient (CLI) | payer MEDICARE, OTHER, SELFPAY ==
[2022-06-08 13:11] LABS: Sodium, Urine Result 21 mmol/L
[2022-06-08 14:12] LABS: Total Volume, Urine 2100 mL
== END 2022-06-08 12:23 | disposition home or self-care (01) ==
LOC: LAB 12:26
PROVIDERS: PCP Family Medicine; Visit Provider Family Medicine
DX: E87.1 Hypo-osmolality and hyponatremia (principal); Z79.899 Other long term (current) drug therapy
CPT/HCPCS: 84300

== ENCOUNTER → 2022-06-30 11:42 | Outpatient (BNVA) | payer MEDICARE, OTHER, SELFPAY | PROVIDERS: PCP Family Medicine; Visit Provider Family Medicine | DX: E87.1 Hypo-osmolality and hyponatremia (principal) | CPT/HCPCS: 80053 ==

== ENCOUNTER 2022-07-04 06:00 | Outpatient (RCR) | payer MEDICARE, OTHER, SELFPAY | END 2022-08-02 23:59 | disposition home or self-care (01) | LOC: SPT 06:00 | PROVIDERS: PCP Family Medicine; Visit Provider Orthopaedic Surgery | DX: Z98.1 Arthrodesis status (principal) | CPT/HCPCS: 97113; 97164 ==

== ENCOUNTER 2022-08-03 06:00 | Outpatient (RCR) | payer MEDICARE, OTHER, SELFPAY | END 2022-09-02 23:59 | disposition home or self-care (01) | LOC: SPT 06:00 | PROVIDERS: PCP Family Medicine; Visit Provider Orthopaedic Surgery | DX: Z98.1 Arthrodesis status (principal) | CPT/HCPCS: 97113 ==

== ENCOUNTER 2022-09-03 06:00 | Outpatient (RCR) | payer MEDICARE, OTHER, SELFPAY | END 2022-09-16 23:59 | disposition home or self-care (01) | LOC: SPT 06:00 | PROVIDERS: PCP Family Medicine; Visit Provider Orthopaedic Surgery | DX: M43.26 Fusion of spine, lumbar region (principal) | CPT/HCPCS: 97110 ==

== ENCOUNTER → 2022-09-30 12:57 | Outpatient (BNVA) | payer MEDICARE, OTHER, SELFPAY | PROVIDERS: PCP Family Medicine; Visit Provider Dermatology | DX: L57.8 Other skin changes due to chronic exposure to nonionizing radiation (principal); L82.1 Other seborrheic keratosis; L57.0 Actinic keratosis; I83.10 Varicose veins of unspecified lower extremity with inflammation; Z12.83 Encounter for screening for malignant neoplasm of skin; Z85.828 Personal history of other malignant neoplasm of skin; Z87.891 Personal history of nicotine dependence; L81.4 Other melanin hyperpigmentation | CPT/HCPCS: 17000; 17003; 99213 ==

== ENCOUNTER → 2022-10-23 10:34 | Outpatient (BNVA) | payer MEDICARE, OTHER, SELFPAY | PROVIDERS: PCP Family Medicine; Visit Provider Otolaryngology | DX: K13.70 Unspecified lesions of oral mucosa (principal); K13.79 Other lesions of oral mucosa; Z86.718 Personal history of other venous thrombosis and embolism; K50.90 Crohn's disease, unspecified, without complications; F41.9 Anxiety disorder, unspecified; F32.9 Major depressive disorder, single episode, unspecified; K21.9 Gastro-esophageal reflux disease without esophagitis; J45.909 Unspecified asthma, uncomplicated; C50.911 Malignant neoplasm of unspecified site of right female breast | CPT/HCPCS: 70470; 70491; 99205; Q9967 ==

== ENCOUNTER 2022-10-23 12:09 | Outpatient (CLI) | payer MEDICARE, OTHER, SELFPAY ==
--- NOTE | 2022-10-23 12:00 | CT_ITS ---
WS: [id number] CT NECK TECHNIQUE: Contrast-enhanced CT of the neck with coronal and sagittal reformatted images. CLINICAL INFORMATION: concern for malignacy COMPARISON: None. DLP: 2524.[address] scans at [facility] use at least one of these dose optimization techniques: automated e xposure control; mA and/or kV adjustment per patient size (includes targeted exams where dose is matc hed to clinical indication); or iterative reconstruction. FINDINGS: Dental artifact degrades images at the tongue base. Asymmetric diffuse soft tissue thickening with enhancement involving the LEFT palatine tonsil extendi ng to the LEFT tongue base. This abuts the masseter laterally and medial pterygoid. Partial effacemen t of the LEFT parapharyngeal space with soft tissue thickening involving the pharyngeal mucosal space eccentric to the LEFT. Soft tissue thickening involving the LEFT anterior and posterior pharyngeal m ucosal space. Prominent uvula. Slight effacement of the LEFT vallecula. Normal piriform sinuses. Free margin of the epiglottis appea rs normal. No evidence of glottic mass. Normal subglottic airway. A few prominent LEFT posterior triangle cervical chain lymph nodes asymmetric compared to the RIGHT. Largest lymph nodes measure 10 to 11 mm in maximum dimension and suspicious for metastatic disease. T his is best appreciated on sagittal imaging. PET CT could be used in further evaluation. Lung apices are well aerated. Osteopenia. Mild spondylitic changes cervical spine. Normal parotid gla nds. Normal submandibular glands. Moderate carotid bulb calcification. Paranasal sinuses and mastoid air cells well aerated. Cavernous chronic calcification. Normal posteri or nasopharynx. CT/CT neck w con* [id number] IMPRESSION: 1. Diffuse soft tissue thickening with enhancement involving the LEFT palatin e tonsil extending along the LEFT tongue base. Associated thickening of the LEF T anterior and posterior pharyngeal mucosal space suspicious for neoplasm. Asso ciated thickening of the uvula. 2. Partial effacement of the LEFT parapharyngeal space. Enhancing soft tissue abuts the LEFT masseter and medial pterygoid. 3. A few slightly prominent enhancing LEFT posterior triangle lymph nodes best appreciated on the sagittal imaging suspicious for metastatic disease. 4. Paranasal sinuses and mastoid air cells are well aerated. 5. No other suspicious findings.
--- NOTE | 2022-10-23 12:30 | CT_ITS ---
WS: [id number] CT HEAD TECHNIQUE: Noncontrast and contrast-enhanced CT of the head. CLINICAL INFORMATION: concern for malignacy COMPARISON: July 29, 2021 DLP: 2524.[address] scans at [facility] use at least one of these dose optimization techniques: automated e xposure control; mA and/or kV adjustment per patient size (includes targeted exams where dose is matc hed to clinical indication); or iterative reconstruction. FINDINGS: No evidence of intracranial hemorrhage or mass effect. Ventricular system and basal cisterns are paez nt. Mild small vessel changes. Mild parenchymal volume loss. Intracranial vascular calcification. Mil d mucosal thickening ethmoid air cells. Mastoid air cells are well aerated. Cavernous carotid calcifi cation. Normal posterior nasopharynx. Postcontrast images demonstrate no abnormal intracranial enhancement. No enhancing intracranial lesio ns. CT/CT head wo/w con [id number] IMPRESSION: 1. No evidence of intracranial hemorrhage or mass effect. 2. Mild small vessel changes. Mild parenchymal volume loss. 3. No abnormal intracranial enhancement. 4. No other suspicious findings.
[2022-10-23] MEDS: iohexol 350 mg/mL 500 mL Btl (per mL) IV (12:46)
== END 2022-10-23 12:10 | disposition home or self-care (01) ==
PROVIDERS: PCP Family Medicine; Visit Provider Otolaryngology
DX: K13.70 Unspecified lesions of oral mucosa (principal)
CPT/HCPCS: 70470; 70491; Q9967

== ENCOUNTER 2022-10-28 09:31 | Oncology outpatient (recurring) (ONCR) | payer MEDICARE, OTHER, SELFPAY ==
[2022-10-28 10:35] LABS: Reticulocyte % 1.4 % (0.5-2.0)
[2022-10-28 11:04] LABS: Albumin Level 3.6 g/dL (3.5-5.2)
[2022-10-28 11:22] LABS: Alanine Aminotransferase 37 U/L (0-33); Blood Urea Nitrogen 8 mg/dL (8-23); Calcium 8.9 mg/dL (8.5-10.5); Carbon Dioxide 26 mmol/L (22-29); Chloride 94 mmol/L (98-107); Globulin 3.6 g/dL (1.3-4.6); Glomerular Filtration Rate 157.8 mL/min (90-130); Glucose 84 mg/dL (65-115); Iron 159 ug/dL (37-145); Osmolality Calculated 268 mOsm/kg (285-295); Sodium 130 mmol/L (136-145); Total Bilirubin 0.7 mg/dL (0.15-1.2); Total Protein 7.2 g/dL (6.6-8.7)
[2022-10-28 11:23] LABS: Alkaline Phosphatase 80 U/L (35-105); Ferritin 59 ng/mL (15-150)
[2022-10-28 11:24] LABS: Anion Gap 14.9 (5-19); Aspartate Amino Transferase 57 U/L (0-32); Potassium 4.9 mmol/L (3.5-5.1)
[2022-10-28 11:40] LABS: Erythrocyte Sedimentation Rate 90 mm/hr (0-15)
[2022-10-28 11:51] LABS: Basophils # 0.1 10^3/uL (0.0-0.1); Basophils % 1.2 %; Eosinophils # 0.1 10^3/uL (0.0-0.8); Eosinophils % 1.6 %; Hematocrit 34.2 % (37.0-47.0); Hemoglobin 11.1 g/dL (11.5-15.3); Lymphocytes # 1.1 10^3/uL (0.8-4.8); Lymphocytes % 20.9 %; Mean Corpuscular HGB Conc 32.5 g/dL (30.0-36.0); Mean Corpuscular Hemoglobin 33.6 pg (28.0-34.0); Mean Corpuscular Volume 103.6 fl (81-99); Mean Platelet Volume 10.5 fL (7.4-10.4); Monocytes # 0.4 10^3/uL (0.2-0.9); Monocytes % 8.3 %; Neutrophils # 3.45 10^3/uL (1.8-7.7); Neutrophils % 67.8 %; Nucleated Red Blood Cells % 0.4 %; Platelet Count 413 10^3/cmm (130-400); Red Cell Distribution Width 18.1 % (12.1-15.1); White Blood Count 5.1 10^3/uL (4.0-10.0)
[2022-10-28 11:53] LABS: Slide Review Slide Review Perform
[2022-11-03 10:40] LABS: Erythropoietin 49.1 mIU/mL (2.6-18.5)
== END 2022-11-02 23:59 | disposition home or self-care (01) ==
PROVIDERS: Internal Medicine Medical Oncology; PCP Family Medicine; Visit Provider Internal Medicine
DX: R74.8 Abnormal levels of other serum enzymes (principal); I82.509 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 of unspecified lower extremity; Z86.2 Personal history of diseases of the blood and blood-forming organs and certain disorders involving the immune mechanism; K50.90 Crohn's disease, unspecified, without complications; Z79.01 Long term (current) use of anticoagulants
CPT/HCPCS: 36415; 80053; 82668; 82728; 83540; 85025; 85045; 85651; 99204

== ENCOUNTER 2022-10-29 09:49 | Day surgery (SDC) | payer MEDICARE, OTHER, SELFPAY ==
[2022-10-29] VITALS (11 sets, daily range): BP systolic 125–182; BP diastolic 78–96; PULSE 81–88; RESP 15–18; TEMP 36.2–36.8; O2SAT 90–100
[2022-10-29] MEDS: sodium chloride 0.9% 1,000 ML 30 ML IV (10:32)
--- NOTE | 2022-10-29 10:35 | W.PM.OPSUD ---
Surgery/Procedure H&P Update DATE OF PROCEDURE: October 29, 2022 DATE H&P PERFORMED: 10/23/22 H&P UPDATE INFORMATION: I have reviewed H&P completed within last 30 days, I have examined patient prior to procedure and No changes to prior documentation CHANGES TO PREVIOUS DOCUMENTATION: No changes PREOP DIAGNOSIS: Left soft palate/retromolar trigone lesion PRIMARY INDICATION FOR PROCEDURE: Left soft palate/tonsil/retromolar trigone lesion for exploration and biopsy purposes. PLANNED PROCEDURE: Operation Date: 10/29/22 11:50 Proposed Procedures p [id number] - direct laryngoscopy with biopsy of oral lesion K13.79(Not Applicable) - Dedrick Mujica MD
--- NOTE | 2022-10-29 10:56 | P.ANESASSM_ITS ---
Pre-Anesthetic Assessment Height/Weight: Height 1.68 m Weight 84.368 kg Temp Pulse Resp BP Pulse Ox O2 Del Method 97.2 F L 81 17 145/85 98 Room Air 10/29/22 09:57 10/29/22 09:57 10/29/22 09:57 10/29/22 09:57 10/29/22 09:57 10/29/22 10:21 Preop Diagnosis: Left soft palate/retromolar trigone lesion Operation Date: 10/29/22 11:50 Proposed Procedures p [id number] - direct laryngoscopy with biopsy of oral lesion K13.79(Not Applicable) - Dedrick Mujica MD Familial anesthetic complications: None Was Beta Evelia taken within 24 hours: N/A Was Clonidine taken within 24 hours: N/A Last intake: Intake Last Liquid Date 10/28/22 Last Liquid Time 21:00 Last Solid Date 10/28/22 Last Solid Time 18:00 Social No alcohol and No tobacco Exam alert, oriented x 3, clear to auscultation bilaterally and regular rate & rhythm Airway Mallampati: Class II Dentition: chipped and other (several missing) Pulmonary Asthma CV/HEM Anemia and Deep Vein Thrombosis (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, holding) Hepatic KEY GI Gastroesophageal Reflux Disease crohn's Metabolic Hyperlipidemia chronic hyponatremia Anesthetic Plan ASA status: 4 Anesthesia: General Risk of > 500 ml blood loss (7ml/kg in children): No Medications/Allergies Home Medications Medication Instructions Recorded Confirmed Last Taken Type denosumab 60 mg/mL subcutaneous 60 mg SUBCUT .every 6 months 07/25/19 10/28/22 05/06/22 History syringe (Prolia) cetirizine 10 mg capsule (All Day 10 mg PO DAILY PRN Allergy Symptoms 11/12/20 10/29/22 10/28/22 History Allergy (cetirizine)) azathioprine 50 mg tablet 100 mg PO BID 01/14/21 10/29/22 10/28/22 21:00 History brimonidine 0.2 % eye drops 1 drp ophthalmic (eye) .COMPLEX 90 03/10/21 10/28/22 10/28/22 Rx days #30 mL latanoprost 0.005 % eye drops 1 drp ophthalmic (eye) BEDTIME 10/23/21 10/28/22 10/28/22 History Bone Growth Stimulator E0748 #1 ea 11/03/21 10/28/22 Unknown Rx Lift Chair Motor #1 ea 12/16/21 10/28/22 Unknown Rx atorvastatin 10 mg tablet 10 mg PO DAILY #90 tabs 04/24/22 10/29/22 10/28/22 21:00 Rx cholecalciferol (vitamin D3) 125 125 mcg PO DAILY #90 caps 04/24/22 10/28/22 10/28/22 Rx mcg (5,000 unit) capsule aripiprazole 2 mg tablet 2 mg PO DAILY #90 tabs 05/22/22 10/28/22 10/28/22 Rx citalopram 40 mg tablet 40 mg PO DAILY #90 tabs 05/22/22 10/28/22 10/28/22 Rx albuterol sulfate 90 mcg/actuation 2 inh inhalation Q4H PRN shortness 06/30/22 10/28/22 Unknown Rx aerosol inhaler of breath or wheezing #8.5 grams furosemide 20 mg tablet (Lasix) 20 mg PO QAM #90 tabs 07/01/22 10/28/22 10/28/22 Rx calcium carbonate 600 mg calcium See Rx Instructions .Route 07/08/22 10/28/22 10/28/22 Rx (1,500 mg) tablet .COMPLEX #90 tabs warfarin 10 mg tablet See Rx Instructions .Route 09/02/22 10/28/22 10/25/22 Rx .COMPLEX #143 tabs omeprazole 40 mg capsule,delayed See Rx Instructions .Route 09/21/22 10/28/22 10/28/22 Rx release .COMPLEX #90 caps nortriptyline 25 mg capsule See Rx Instructions .Route 09/28/22 10/28/22 10/28/22 Rx .COMPLEX #90 caps lactulose 10 gram/15 mL oral 15 ml PO PRN 10/28/22 10/29/22 10/26/22 History solution diphenhydramine HCl 25 mg tablet 50 mg PO PRN PRN Allergy Symptoms 10/29/22 10/29/22 10/29/22 History (Benadryl Allergy) 0845 Allergies Allergy/AdvReac Type Severity Reaction Status Date / Time No Known Allergies Allergy Verified 10/28/22 09:40 Current Medications Generic Name Dose Route Start Last Admin Trade Name Freq PRN Reason Stop Dose Admin Sodium Chloride 1,000 mls @ 30 mls/hr 10/29/22 10:00 10/29/22 10:32 Sodium Chloride 0.9% IV 10/30/22 09:59 30 mls/hr .Q24H STEWART Administration PFSH Anesthesia Medical History Anxiety and depression Asthma Closed L2 vertebral fracture Compression fracture of L2 Crohn disease Current use of residential anticoagulation Diverticulosis large intestine w/o perforation or abscess w/bleeding DVT (deep venous thrombosis) recurrent Dyslipidemia Encounter for long-term opiate analgesic use Factor V deficiency History of Crohn's disease Low back pain of over 3 months duration Lumbar disc prolapse with compression radiculopathy KEY (nonalcoholic steatohepatitis) Nicotine dependence, cigarettes, with unspecified nicotine-induced disorders Opioid contract exists Osteoporosis Pain in thoracic spine Postoperative ileus Spinal stenosis, lumbar region, with neurogenic claudication Stable burst fracture of fifth lumbar vertebra Surgical History History of ankle surgery History of arthroplasty of right shoulder History of arthroscopy of left knee x3 History of back surgery 07/19/17 thoracic laminotomy, with placement of intraspinal epidureal paddle electrode arrays( [employer]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 Placement of subcutaneous programmable pulse generator ([employer]) History of basal cell carcinoma excision Nasal History of knee replacement, total 02/2015 History of lumpectomy of right breast 2007 History of partial hysterectomy 1986 History of total replacement of right shoulder joint 2008 and multiple surgeries Hx of eye surgery stent placed in left eye and cataracts Hx of tonsillectomy age 4 Status post lumbar spinal fusion Family History (Updated 10/28/22 @ 09:48 by Lynette Vincent MA) Unknown Cancer Mother CAD (coronary artery disease) Hypertension Lung disease Sister CAD (coronary artery disease) Cancer Chronic kidney disease (CKD) Hyperlipidemia Hypertension Sister Cancer Hypertension Father Cancer Denies family history of Diabetes Clotting disorder Dementia Psychiatric illness Suicide Anesthesia complication Bleeding disorder Family history of premature coronary artery disease Stroke Social History (Updated 10/28/22 @ 09:49 by Lynette Vincent MA) Smoking and tobacco status: former smoker Quit status (tobacco): has quit using tobacco Year quit tobacco: 07/2022 Former quit date comment: Smoked for 7+ years Alcohol intake: former Substance/Drug Use: never Data Anesthesia Cardiac Studies: No Data to Display
[2022-10-29] MEDS: ceFAZolin 2,000 MG in sodium chloride 0.9% (plus) 50 ML 100 MG IV (11:05)
[2022-10-29] MEDS: EPINEPHrine 1 mg/mL INJ XX (11:48)
--- NOTE | 2022-10-29 12:16 | PM.OP ---
Operative Report Date of procedure: October 29, 2022 Pre-op diagnosis: Preop Diagnosis Left soft palate/retromolar trigone lesion Post-op diagnosis: Left soft palate/left tonsil/left retromolar trigone/base of tongue/left buccal membrane lesion with exophytic areas and ulceration areas. 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 Post-op findings: Same Procedure done: Direct laryngoscopy and multiple oral biopsies of left soft palate left tonsil left retromolar trigone left base of tongue left buccal membrane and additional biopsies deeper into left tonsillar lesion. Implants: No implants Specimens removed/disposition: Specimens as above Pathology: Frozen section from left soft palate lesion and all remaining biopsies for permanent section only Surgeon: Dedrick Mujica MD Anesthesia: General Estimated blood loss: 25 mL Complications: No complications encountered Findings: Exophytic growth in the left tonsil to base of tongue area and covering left retromolar trigone with then ulcerative lesion extending onto and covering almost all of the left side soft palate and extension of erythema into the buccal membrane on the left side. Brief History: 72-year-old female patient complaining of soreness and change of tissues in the mouth. Seen by dentist and advised referral to ENT. Rapidly growing exophytic and ulcerative lesion of the left soft palate and tonsil area and buccal membrane and retromolar trigone area. Procedure: Description of procedure: The patient was placed on the operating table in the supine position. Adequate general endotracheal tube anesthesia was obtained. She was given Ancef IV for prophylaxis and Decadron to help with postoperative edema. The table was rotated 90 degrees. Her eyes were taped shut. Head drape was applied in usual fashion. A timeout was accomplished identifying the patient date of plan procedure allergies fire risk and medications given. With all in agreement the procedure continued. A tooth guard was placed over her upper dentition. An anterior commissure laryngoscope was used to perform a direct laryngoscopy. This was done to visualize the hypopharynx and laryngeal areas to verify that the known area of involvement did not extend or that there was no second potential primary lesion of concern. With no other abnormalities identified attention was turned to biopsying the left palate and surrounding lesion area. A Savanna Rahul mouthgag was inserted over the endotracheal tube and tongue ensuring that the upper dentition was in the guard. The previous tooth guard was removed before this. Once the lesion sites were well visualized cup forceps were used to biopsy at the medial most aspect of the left soft palate lesion. 2 biopsies were taken of this area. The idea was to try and get normal tissue adjacent to what appeared to be the ulceration. This was sent for frozen section. While that was pending multiple biopsies were taken which included the left tonsil the left retromolar trigone the left base of tongue and left buccal membrane area. Then when the frozen section returned as squamous dysplasia but no definite evidence of malignancy further biopsies were taken from the tonsil area which showed the most exophytic growth and making sure that the biopsy extended more deeply to get a more definitive diagnosis. I did not want to keep the patient under anesthetic any longer so I did not do another frozen section. The bleeding was controlled by application of cottonoids with 1-1000 epinephrine and then later application of Humble and then treated with hydrogen peroxide. Once all that what is accomplished all the bleeding was controlled. No cauterization was necessary. The drapes were removed from the patient. The throat hypopharynx and nasopharynx areas were all suctioned clean. Head was returned to the upright position. Throat was suctioned 1 last time with no bleeding evident. Patient was then returned to anesthesia for wake-up and extubation. Patient tolerated the procedure well and had an estimated blood loss of 25 mL. She arrived in recovery in stable condition.
[2022-10-29] MEDS: fentaNYL 50 mcg/mL INJ 2mL IVP (12:26)
--- NOTE | 2022-10-29 13:00 | ANE.PACU2 ---
Inpatient post-anesthesia follow up: Vital signs: Temperature 97.9 F Pulse Rate 83 Respiratory Rate 16 Blood Pressure 147/96 Pulse Oximetry 94 Oxygen Delivery Me thod Room Air Oxygen Flow Rate 6 Fraction of Inspir ed Oxygen
[2022-10-29] MEDS: TRAMadol 50 mg Tablet PO (13:21)
[2022-11-04 10:48] LABS: PD-L1 (Clone 22C3) by IHC BBPL See Report
== END 2022-10-29 14:05 | disposition home or self-care (01) ==
PROVIDERS: PCP Family Medicine; Visit Provider Otolaryngology
PROC: 0CJS8ZZ Inspection of Larynx, Via Natural or Artificial Opening Endoscopic (ICD-10-PCS; CPT 31525; principal; 2022-10-29 11:40)
DX: C06.89 Malignant neoplasm of overlapping sites of other parts of mouth (principal); E78.5 Hyperlipidemia, unspecified; Z79.01 Long term (current) use of anticoagulants; K21.9 Gastro-esophageal reflux disease without esophagitis; Z87.891 Personal history of nicotine dependence; Z86.718 Personal history of other venous thrombosis and embolism
CPT/HCPCS: 31525; 40808; 41108; 42800; 88305; 88331; 88341; 88342; J0171; J0330; J0690; J1100; J2405; J2704; J3010; J7030

== ENCOUNTER → 2022-11-06 10:02 | Outpatient (BNVA) | payer MEDICARE, OTHER, SELFPAY | PROVIDERS: PCP Family Medicine; Visit Provider Otolaryngology | DX: K13.79 Other lesions of oral mucosa (principal); Z48.814 Encounter for surgical aftercare following surgery on the teeth or oral cavity; C06.9 Malignant neoplasm of mouth, unspecified | CPT/HCPCS: 99024 ==

== ENCOUNTER 2022-11-23 08:00 | Oncology outpatient (recurring) (ONCR) | payer MEDICARE, OTHER, SELFPAY ==
[2022-11-23 08:11] VITALS: BP 136/77; PULSE 88; RESP 18; TEMP 36.2; O2SAT 97
[2022-11-23 08:21] VITALS: BP 138/69; PULSE 80; RESP 16; TEMP 36.7; O2SAT 98
[2022-11-23] MEDS: denosumab 60 mg SDV SUBCUT (08:27)
== END 2022-12-03 23:59 | disposition home or self-care (01) ==
PROVIDERS: PCP Family Medicine; Visit Provider Internal Medicine
DX: M81.0 Age-related osteoporosis without current pathological fracture (principal)
CPT/HCPCS: 36415; 96372; 99213; J0897

== ENCOUNTER 2023-03-08 04:16 | Emergency (ER) | payer MEDICARE, OTHER, SELFPAY ==
[2023-03-08 04:17] VITALS: BP 123/78; PULSE 104; RESP 17; TEMP 36.8; O2SAT 93; BMI 28.8
--- NOTE | 2023-03-08 04:53 | XRR_ITS ---
PROCEDURE INFORMATION: Exam: XR Chest Exam date and time: 03/08/2023 5:01 AM Age: 72 years old Clinical indication: Shortness of breath; Prior surgery; Surgery date: 6+ months; Surgery type: Port. Lumpectomy. Stimulator. Spinal fusion. Bilat shoulder. Patient HX: General weakness with SOB. History of breast and oral cancer. ; Additional info: SOB, AMS TECHNIQUE: Imaging protocol: Radiologic exam of the chest. Views: 1 view. COMPARISON: CR XR chest 1V portable [id number] 10/30/2021 11:22 AM FINDINGS: Tubes, catheters and devices: There is a right jugular Port-A-Cath in place with its tip projecting in the region of the superior vena cava. Transcutaneous nerve stimulator probes are present projecting in the midthoracic spine. Lungs: There is minimal atelectasis and/or scarring in the lung bases without definite infiltrate. Pleural spaces: Unremarkable. No pleural effusion. No pneumothorax. Heart/Mediastinum: The heart size is within normal limits. Vasculature: There are atherosclerotic changes in the aorta. Bones/joints: Patient has bilateral shoulder prostheses. Patient has undergone previous spinal fusion surgery. There are old healed right-sided rib fractures. Gastrointestinal tract: Patient appears to have a gastrostomy in place. XR/XR chest 1V portable [id number] IMPRESSION: 1. Minimal atelectasis or scarring both lung bases without definite infiltrate. 2. Port-A-Cath. 3. Gastrostomy 4. Transcutaneous nerve stimulator
--- NOTE | 2023-03-08 04:53 | CTR_ITS ---
PROCEDURE INFORMATION: Exam: CT Head Without Contrast Exam date and time: 03/08/2023 5:10 AM Age: 72 years old Clinical indication: Patient HX: General weakness. History of breast and oral cancer. ; Additional info: AMS TECHNIQUE: Imaging protocol: Computed tomography of the head without contrast. Radiation optimization: All CT scans at this facility use at least one of these dose optimization techniques: automated exposure control; mA and/or kV adjustment per patient size (includes targeted exams where dose is matched to clinical indication); or iterative reconstruction. REPORTING DATA: Count of CT and Cardiac NM exams in prior 12 months: This patient has received 2 known CTs and 0 known cardiac nuclear medicine studies in the 12 months prior to the current study. COMPARISON: CT head wo/w con [id number] 10/23/2022 12:36 PM RADIATION DOSE METRICS: Total DLP (mGy-cm): 1113.88 FINDINGS: Brain: There are no acute infarctions or hemorrhage. There is white matter low-density consistent with small-vessel disease.. Cerebral ventricles: No ventriculomegaly. Pituitary gland and sella: Patient has a mildly expanded empty sella turcica Paranasal sinuses: Visualized sinuses are unremarkable. No fluid levels. Mastoid air cells: There is fluid in right-sided mastoid air cells. Orbital cavities: Small radiopaque foreign body is associated with the left anterior orbital globe. Bones/joints: Unremarkable. No acute fracture. Soft tissues: Unremarkable. Other findings: There is mild atrophy. CT/CT head wo con* [id number] IMPRESSION: 1. Negative for acute intracranial findings 2. Small-vessel disease 3. Radiopaque foreign body left orbital globe 4. Mild atrophy 5. Fluid in a few right-sided mastoid air cells
--- NOTE | 2023-03-08 04:55 | ED_ITS ---
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 She was recently released from [facility] in [place], 6 days ago, after being treated for pneumonia there. She is still on antibiotics. She has been increasingly confused over the last couple of days. She is hallucinating some, both visually and auditory. Her sister is with her, notes that she has not run a fever since she left the hospital. She had radiation late last week. Sister says that she was giving her 10 mg of oxycodone every 4 hours during the day, but cut this back to 5 mg due to sedation. She is on warfarin as well. No trauma to the head. She has had a continued cough, Associated symptoms: Reports dyspnea and nausea; Deny chest pain, rash or vomiting Review of Systems 2 Const: Denies: fever(s) or chills Eyes: Denies: change in vision ENMT: Reports: throat pain and dry mouth; Denies: nasal discharge Card: Denies: chest pain Resp: Reports: dyspnea and productive cough GI: Reports: nausea; Denies: vomiting Skin/Breast: Denies: rash PFSH ED 2 PFSH: Medical History Postoperative ileus Spinal stenosis, lumbar region, with neurogenic claudication Lumbar disc prolapse with compression radiculopathy Closed L2 vertebral fracture Nicotine dependence, cigarettes, with unspecified nicotine-induced disorders Compression fracture of L2 Diverticulosis large intestine w/o perforation or abscess w/bleeding History of Crohn's disease Current use of senior care anticoagulation KEY (nonalcoholic steatohepatitis) Asthma Dyslipidemia Crohn disease Factor V deficiency DVT (deep venous thrombosis) recurrent Osteoporosis Anxiety and depression Pain in thoracic spine Stable burst fracture of fifth lumbar vertebra Low back pain of over 3 months duration Opioid contract exists Encounter for long-term opiate analgesic use Surgical History Status post lumbar spinal fusion History of ankle surgery History of arthroplasty of right shoulder History of back surgery 07/19/17 thoracic laminotomy, with placement of intraspinal epidureal paddle electrode arrays( [employer], 70cm, 2x8 certified surgical first assistant). Placement of subcutaneous programmable pulse generator ([employer]) History of knee replacement, total 02/2015 History of total replacement of right shoulder joint 2008 and multiple surgeries Hx of eye surgery stent placed in left eye and cataracts History of arthroscopy of left knee x3 History of lumpectomy of right breast 2007 History of basal cell carcinoma excision Nasal Hx of tonsillectomy age 4 History of partial hysterectomy 1985 Family History Unknown Cancer Mother CAD (coronary artery disease) Hypertension Lung disease Sister CAD (coronary artery disease) Cancer Chronic kidney disease (CKD) Hyperlipidemia Hypertension Sister Cancer Hypertension Father Cancer Denies family history of Diabetes Clotting disorder Dementia Psychiatric illness Suicide Anesthesia complication Bleeding disorder Family history of premature coronary artery disease Stroke Social History Smoking and tobacco/nicotine status: former use of tobacco/nicotine Quit status (tobacco/nicotine): has quit using Year quit tobacco: 07/2022 Former quit date comment: Smoked for 7+ years Alcohol intake: former Substance/Drug Use: never Physical Exam 2 Const: COMMON NORMALS: no acute distress GENERAL APPEARANCE: cooperative; not ill appearing and not frail appearing HENMT: COMMON NORMALS: normocephalic, atraumatic and Normal external nose present HEAD & SCALP: normocephalic and atraumatic FACE & SINUS: normal facial exam and face symmetric NOSE: Normal external nose present Eye: COMMON NORMALS: Equal, round and reactive pupils present and EOMs intact bilaterally PUPIL: Yes Equal, round and reactive pupils present Neck/C-Spine: GENERAL: Yes trachea midline Chest: CHEST: Yes Symmetrical chest wall rise Resp: COMMON NORMALS: normal respiratory effort, No retractions, No use of accessory muscles and clear to auscultation bilaterally AUSCULTATION: clear to auscultation bilaterally Cardio: COMMON NORMALS: regular rhythm RATE: tachycardic RHYTHM: regular rhythm GI: COMMON NORMALS: Normal to inspection, nondistended, normoactive bowel sounds present Extremity: COMMON NORMALS: no pedal edema Neuro: CHRISTIN COMA SCALE: document GCS findings Christin coma scale eye opening: Spontaneous Effie coma scale verbal response: Orientated Christin coma scale motor response: Obey commands Christin coma scale total score: 15 S ENSORY EXAM: Yes extremities (intact) Psych: COMMON NORMALS: speech normal SPEECH: Yes normal speech Skin: COMMON NORMALS: no rashes or lesions noted GENERAL SKIN EXAM: no rashes or lesions noted Course 2 Vital Signs: Vital signs: Vital Signs Temperature 98.3 F 03/08/23 04:17 Pulse Rate 98 03/08/23 08:35 Respiratory Rate 22 H 03/08/23 05:34 Blood Pressure 139/83 03/08/23 08:35 Pulse Oximetry 94 03/08/23 08:35 Oxygen Delivery Me thod Room Air 03/08/23 07:16 MDM - General Adult Medical Decision Making 72-year-old female here with mental status changes and generalized weakness. She is being treated for cancer. She has had chemotherapy and radiation. She is on antibiotics for continued pneumonia which she was originally treated for in the inpatient setting, and was released 6 Days ago. White blood cell count is 12. Hemoglobin is 9.Chest x-ray reveals no specific infiltrate.Head CT is negative. Patient has received 2 L of fluid. She is feeling somewhat improved. She would like to go home if possible. Still awaiting urinalysis. Flu and COVID are negative. Generalized weakness and mild mental status change could be caused by pain medication, potentially sodium of 128, urinary tract infection, etc. IV fluid has seemed to have helped to some degree. If urinalysis is negative, will allow home. Lab Data 03/08/23 05:37 03/08/23 05:37 Radiology Impressions Chest X-Ray 03/08/23 04:53 IMPRESSION: 1. Minimal atelectasis or scarring both lung bases without definite infiltrate. 2. Port-A-Cath. 3. Gastrostomy 4. Transcutaneous nerve stimulator Head CT 03/08/23 04:53 IMPRESSION: 1. Negative for acute intracranial findings 2. Small-vessel disease 3. Radiopaque foreign body left orbital globe 4. Mild atrophy 5. Fluid in a few right-sided mastoid air cells Laboratory Results WBC 11.83 10^3/uL (3.29-11.43) H 03/08/23 05:37 RBC 2.69 10^6/uL (3.85-5.65) L 03/08/23 05:37 Hgb 8.80 g/dL (11.27-16.99) L 03/08/23 05:37 Hct 27.3 % (36-47) L 03/08/23 05:37 MCV 101.5 fl (85-98) H 03/08/23 05:37 MCH 32.7 pg (27-33) 03/08/23 05:37 MCHC 32.2 g/dL (30-55) 03/08/23 05:37 RDW 21.8 % (12.1-15.1) H 03/08/23 05:37 Plt Count 468 10^3/cmm (157-399) H 03/08/23 05:37 MPV 9.2 fL (7.4-10.4) 03/08/23 05:37 Neut % (Auto) 68.3 % 03/08/23 05:37 Lymph % (Auto) 6.3 % 03/08/23 05:37 [place] % (Auto) 19.8 % 03/08/23 05:37 Eos % (Auto) 0.2 % 03/08/23 05:37 Baso % (Auto) 0.6 % 03/08/23 05:37 Neut # (Auto) 8.08 10^3/uL (1.8-7.7) H 03/08/23 05:37 Lymph # (Auto) 0.8 10^3/uL (0.8-4.8) 03/08/23 05:37 [place] # (Auto) 2.3 10^3/uL (0.2-0.9) H 03/08/23 05:37 Eos # (Auto) 0.0 10^3/uL (0.0-0.8) 03/08/23 05:37 Baso # (Auto) 0.1 10^3/uL (0.0-0.1) 03/08/23 05:37 Nucleated RBC % (auto) 2.7 % 03/08/23 05:37 Nucleated RBCs # 0.3 /100WBC 03/08/23 05:37 PT 26.10 SECONDS (12.1-14.9) H 03/08/23 05:37 INR 2.29 (0.8-1.2) H 03/08/23 05:37 APTT 35.0 SECONDS (23.9-36.7) 03/08/23 05:37 Specimen Type Arterial 03/08/23 05:22 Sample Site Brachial, right 03/08/23 05:22 ABG pH 7.49 (7.35-7.45) H 03/08/23 05:22 ABG pCO2 43.1 mmHg (35-45) 03/08/23 05:22 ABG pO2 63.0 mmHg (80.0-100.0) L 03/08/23 05:22 ABG HCO3 32.4 mmol/L (22-26) H 03/08/23 05:22 ABG Base Excess 8.1 mmol/L (-2.0-2.0) H 03/08/23 05:22 Daryl Test N/a 03/08/23 05:22 Hematocrit 29.7 % (37-47) L 03/08/23 05:22 O2 Delivery Device Room air 03/08/23 05:22 Transport Conductor ID [email or web address] 03/08/23 05:22 Sodium 128 mmol/L (136-145) L 03/08/23 05:37 Potassium 4.7 mmol/L (3.5-5.1) 03/08/23 05:37 Chloride 91 mmol/L (98-107) L 03/08/23 05:37 Carbon Dioxide 29 mmol/L (22-29) 03/08/23 05:37 Anion Gap 12.7 (5-19) 03/08/23 05:37 BUN 14 mg/dL (8-23) 03/08/23 05:37 Creatinine 0.4 mg/dL (0.5-0.9) L 03/08/23 05:37 GFR Calculation 157.8 mL/min (90-130) H 03/08/23 05:37 Glucose 104 mg/dL (65-115) 03/08/23 05:37 Calculated Osmolality 267 mOsm/kg (285-295) L 03/08/23 05:37 Lactic Acid 0.9 mmol/L (0.5-2.2) 03/08/23 05:37 Calcium 9.7 mg/dL (8.5-10.5) 03/08/23 05:37 Total Bilirubin 0.2 mg/dL (0.15-1.2) 03/08/23 05:37 AST 24 U/L (0-32) 03/08/23 05:37 ALT 13 U/L (0-33) 03/08/23 05:37 Alkaline Phosphatase 73 U/L (35-105) 03/08/23 05:37 NT-Pro-B Natriuret Pep 248 pg/mL (0-125) H 03/08/23 05:37 Total Protein 6.5 g/dL (6.6-8.7) L 03/08/23 05:37 Albumin 3.1 g/dL (3.5-5.2) L 03/08/23 05:37 Globulin 3.4 g/dL (1.3-4.6) 03/08/23 05:37 Urine Color Straw (Yellow) 03/08/23 07:10 Urine Appearance Clear (CLEAR) 03/08/23 07:10 Urine pH 8 (5-7) H 03/08/23 07:10 Ur Specific [place] 1.005 (1.005-1.030) 03/08/23 07:10 Urine Protein Neg (Negative) 03/08/23 07:10 Urine Glucose (UA) Norm (Normal) 03/08/23 07:10 Urine Ketones Negative (Negative) 03/08/23 07:10 Urine Blood Neg (Negative) 03/08/23 07:10 Urine Nitrate Negative (Negative) 03/08/23 07:10 Urine Bilirubin Neg (Negative) 03/08/23 07:10 Prot Sulfosalicylic Acd Negative (Negative) 03/08/23 07:10 Urine Urobilinogen Norm mg/dL (Negative) 03/08/23 07:10 Ur Leukocyte Esterase Negative (Negative) 03/08/23 07:10 Influenza Type A Ag negative (Negative) 03/08/23 05:20 Influenza Type B Ag negative (Negative) 03/08/23 05:20 SARS-CoV-2 Ag (Rapid) negative (Negative) 03/08/23 05:20 All radiology interpretation(s) finalized by discharge Discharge Plan Discharge Patient Disposition: Home Clinical Impression: Generalized weakness Condition: Stable Prescriptions: No Action All Day Allergy (cetirizine) 10 mg capsule 10 mg PO DAILY PRN (Reason: Allergy Symptoms) Prolia 60 mg/mL syringe 60 mg SUBCUT .every 6 months azathioprine 50 mg tablet 100 mg PO BID (DME) Lift Chair Motor See Rx Instructions .Route .MEDSUPPLY Qty: 1 0RF Rx Instructions: As directed citalopram 40 mg tablet 40 mg PO DAILY Qty: 90 1RF nystatin 100,000 unit/gram cream 1 applic topical BID Qty: 30 0RF Rx Instructions: To affected area albuterol sulfate 90 mcg/actuation HFA aerosol inhaler 2 inh inhalation Q4H PRN (Reason: shortness of breath or wheezing) Qty: 8.5 1RF brimonidine 0.2 % drops 1 drp ophthalmic (eye) .COMPLEX 90 Days Qty: 30 1RF Rx Instructions: 1 drp ophthalmic (eye) 1 drop in each eye BID; (DME) Bone Growth Stimulator E0748 See Rx Instructions .Route .MEDSUPPLY Qty: 1 0RF Rx Instructions: As directed warfarin 10 mg tablet See Rx Instructions .ROUTE .COMPLEX Qty: 143 0RF Hold Instructions: Resume on 08/12/21. Dose Instruction: TAKE 1 TABLET DAILY ON , AND SATURDAYS. TAKE 2 TABLETS DAILY ON SUNDAYS, WED, WED AND FRIDAYS DIRECTED Rx Instructions: TAKE 15MG WEDNESDAY AND THURSDAYS, TAKE 17.5MG WEDNESDAY,WEDNESDAY,WEDNESDAY,Wednesday. WEDNESDAY AND WEDNESDAY 15MG, nortriptyline 25 mg capsule See Rx Instructions .ROUTE .COMPLEX Qty: 90 0RF Dose Instruction: TAKE 1 CAPSULE AT BEDTIME Rx Instructions: TAKE 1 CAPSULE AT BEDTIME furosemide 20 mg tablet See Rx Instructions .ROUTE .COMPLEX Qty: 90 0RF Dose Instruction: TAKE 1 TABLET EVERY MORNING Rx Instructions: TAKE 1 TABLET EVERY MORNING aripiprazole 2 mg tablet See Rx Instructions .ROUTE .COMPLEX Qty: 90 1RF Dose Instruction: TAKE ONE TABLET BY MOUTH EVERY DAY Rx Instructions: TAKE ONE TABLET BY MOUTH EVERY DAY atorvastatin 10 mg tablet See Rx Instructions .ROUTE .COMPLEX Qty: 90 0RF Dose Instruction: TAKE 1 TABLET EVERY DAY Rx Instructions: TAKE 1 TABLET EVERY DAY tramadol 50 mg tablet 50 mg PO Q6H PRN (Reason: pain) Qty: 30 0RF cholecalciferol (vitamin D3) 125 mcg (5,000 unit) capsule See Rx Instructions .ROUTE .COMPLEX Qty: 90 10RF Dose Instruction: TAKE 1 CAPSULE EVERY DAY Rx Instructions: TAKE 1 CAPSULE EVERY DAY calcium carbonate 600 mg calcium (1,500 mg) tablet See Rx Instructions .ROUTE .COMPLEX Qty: 90 10RF Dose Instruction: TAKE 1 TABLET EVERY DAY Rx Instructions: TAKE 1 TABLET EVERY DAY omeprazole 40 mg capsule,delayed release(DR/EC) See Rx Instructions .ROUTE .COMPLEX Qty: 90 10RF Dose Instruction: TAKE 1 CAPSULE EVERY DAY Rx Instructions: TAKE 1 CAPSULE EVERY DAY latanoprost 0.005 % drops 1 drp ophthalmic (eye) BEDTIME lactulose 10 gram/15 mL solution 15 ml PO PRN Rx Instructions: TAKE 15ML (10 GRAMS) DAILY Benadryl Allergy 25 mg Tablet 50 mg PO PRN PRN (Reason: Allergy Symptoms) Discharge Orders: Discharge ED (Routine); Ordered 03/08/23 Ordered By: Miller Dinero Referrals: Mckenna Rubin DO [Primary Care Provider] - 1-3 days Patient Instructions: Weakness (ED), Opioid Safety, Pain Management Activity Restrictions/Additional Instructions: Return for fever greater than 100, vomiting liquids or medications, worsening weakness, worsening mental status, any other concerning symptoms. Sign Out Sign Out Data: Patient Sign Out occurred on 03/08/23 at 07:13. Patient's care was discussed, and care was transferred from Gregory Ku DO to Miller Dinero DO. Coding Level of Care Code ED Cane Flume Feeding Machine Operator for Chg Fwd Documented by User: Miller Dinero DO 03/08/23 10:12 HPI - General Adult 2 General: Chief complaint: General Medical Stated complaint: WEAKNESS Time Seen by Provider: 03/08/23 04:32 [facility] PFSH: Medical History Postoperative ileus Spinal stenosis, lumbar region, with neurogenic claudication Lumbar disc prolapse with compression radiculopathy Closed L2 vertebral fracture Nicotine dependence, cigarettes, with unspecified nicotine-induced disorders Compression fracture of L2 Diverticulosis large intestine w/o perforation or abscess w/bleeding History of Crohn's disease Current use of senior care anticoagulation KEY (nonalcoholic steatohepatitis) Asthma Dyslipidemia Crohn disease Factor V deficiency DVT (deep venous thrombosis) recurrent Osteoporosis Anxiety and depression Pain in thoracic spine Stable burst fracture of fifth lumbar vertebra Low back pain of over 3 months duration Opioid contract exists Encounter for long-term opiate analgesic use Surgical History Status post lumbar spinal fusion History of ankle surgery History of arthroplasty of right shoulder History of back surgery 07/19/17 thoracic laminotomy, with placement of intraspinal epidureal paddle electrode arrays( [employer], 70cm, 2x8 certified surgical first assistant). Placement of subcutaneous programmable pulse generator ([employer]) History of knee replacement, total 02/2015 History of total replacement of right shoulder joint 2007 and multiple surgeries Hx of eye surgery stent placed in left eye and cataracts History of arthroscopy of left knee x3 History of lumpectomy of right breast 2007 History of basal cell carcinoma excision Nasal Hx of tonsillectomy age 4 History of partial hysterectomy 1985 Family History Unknown Cancer Mother CAD (coronary artery disease) Hypertension Lung disease Sister CAD (coronary artery disease) Cancer Chronic kidney disease (CKD) Hyperlipidemia Hypertension Sister Cancer Hypertension Father Cancer Denies family history of Diabetes Clotting disorder Dementia Psychiatric illness Suicide Anesthesia complication Bleeding disorder Family history of premature coronary artery disease Stroke Social History Smoking and tobacco/nicotine status: former use of tobacco/nicotine Quit status (tobacco/nicotine): has quit using Year quit tobacco: 07/2022 Former quit date comment: Smoked for 7+ years Alcohol intake: former Substance/Drug Use: never Physical Exam 2 Neuro: CHRISTIN COMA SCALE: document GCS findings Effie coma scale total score: 15 Course 2 Vital Signs: Vital signs: Vital Signs Temperature 98.3 F 03/08/23 04:17 Pulse Rate 98 03/08/23 08:35 Respiratory Rate 22 H 03/08/23 05:34 Blood Pressure 139/83 03/08/23 08:35 Pulse Oximetry 94 03/08/23 08:35 Oxygen Delivery Me thod Room Air 03/08/23 07:16 MDM - General Adult Medical Decision Making 72-year-old female here with mental status changes and generalized weakness. She is being treated for cancer. She has had chemotherapy and radiation. She is on antibiotics for continued pneumonia which she was originally treated for in the inpatient setting, and was released 6 Days ago. White blood cell count is 12. Hemoglobin is 9.Chest x-ray reveals no specific infiltrate.Head CT is negative. Patient has received 2 L of fluid. She is feeling somewhat improved. She would like to go home if possible. Still awaiting urinalysis. Flu and COVID are negative. Generalized weakness and mild mental status change could be caused by pain medication, potentially sodium of 128, urinary tract infection, etc. IV fluid has seemed to have helped to some degree. If urinalysis is negative, will allow home. Urine unremarkable discussed with patient and family reviewed findings from Dr. Ku's work-up they still wish to go home discharge patient home follow-up with primary care Medical Records I reviewed the patient's medical records. Lab Data I reviewed the patient's lab results. 03/08/23 05:37 03/08/23 05:37 Radiology Impressions Chest X-Ray 03/08/23 04:53 IMPRESSION: 1. Minimal atelectasis or scarring both lung bases without definite infiltrate. 2. Port-A-Cath. 3. Gastrostomy 4. Transcutaneous nerve stimulator Head CT 03/08/23 04:53 IMPRESSION: 1. Negative for acute intracranial findings 2. Small-vessel disease 3. Radiopaque foreign body left orbital globe 4. Mild atrophy 5. Fluid in a few right-sided mastoid air cells Laboratory Results WBC 11.83 10^3/uL (3.29-11.43) H 03/08/23 05:37 RBC 2.69 10^6/uL (3.85-5.65) L 03/08/23 05:37 Hgb 8.80 g/dL (11.27-16.99) L 03/08/23 05:37 Hct 27.3 % (36-47) L 03/08/23 05:37 MCV 101.5 fl (85-98) H 03/08/23 05:37 MCH 32.7 pg (27-33) 03/08/23 05:37 MCHC 32.2 g/dL (30-55) 03/08/23 05:37 RDW 21.8 % (12.1-15.1) H 03/08/23 05:37 Plt Count 468 10^3/cmm (157-399) H 03/08/23 05:37 MPV 9.2 fL (7.4-10.4) 03/08/23 05:37 Neut % (Auto) 68.3 % 03/08/23 05:37 Lymph % (Auto) 6.3 % 03/08/23 05:37 [place] % (Auto) 19.8 % 03/08/23 05:37 Eos % (Auto) 0.2 % 03/08/23 05:37 Baso % (Auto) 0.6 % 03/08/23 05:37 Neut # (Auto) 8.08 10^3/uL (1.8-7.7) H 03/08/23 05:37 Lymph # (Auto) 0.8 10^3/uL (0.8-4.8) 03/08/23 05:37 [place] # (Auto) 2.3 10^3/uL (0.2-0.9) H 03/08/23 05:37 Eos # (Auto) 0.0 10^3/uL (0.0-0.8) 03/08/23 05:37 Baso # (Auto) 0.1 10^3/uL (0.0-0.1) 03/08/23 05:37 Nucleated RBC % (auto) 2.7 % 03/08/23 05:37 Nucleated RBCs # 0.3 /100WBC 03/08/23 05:37 PT 26.10 SECONDS (12.1-14.9) H 03/08/23 05:37 INR 2.29 (0.8-1.2) H 03/08/23 05:37 APTT 35.0 SECONDS (23.9-36.7) 03/08/23 05:37 Specimen Type Arterial 03/08/23 05:22 Sample Site Brachial, right 03/08/23 05:22 ABG pH 7.49 (7.35-7.45) H 03/08/23 05:22 ABG pCO2 43.1 mmHg (35-45) 03/08/23 05:22 ABG pO2 63.0 mmHg (80.0-100.0) L 03/08/23 05:22 ABG HCO3 32.4 mmol/L (22-26) H 03/08/23 05:22 ABG Base Excess 8.1 mmol/L (-2.0-2.0) H 03/08/23 05:22 Daryl Test N/a 03/08/23 05:22 Hematocrit 29.7 % (37-47) L 03/08/23 05:22 O2 Delivery Device Room air 03/08/23 05:22 Transport Conductor ID [email or web address] 03/08/23 05:22 Sodium 128 mmol/L (136-145) L 03/08/23 05:37 Potassium 4.7 mmol/L (3.5-5.1) 03/08/23 05:37 Chloride 91 mmol/L (98-107) L 03/08/23 05:37 Carbon Dioxide 29 mmol/L (22-29) 03/08/23 05:37 Anion Gap 12.7 (5-19) 03/08/23 05:37 BUN 14 mg/dL (8-23) 03/08/23 05:37 Creatinine 0.4 mg/dL (0.5-0.9) L 03/08/23 05:37 GFR Calculation 157.8 mL/min (90-130) H 03/08/23 05:37 Glucose 104 mg/dL (65-115) 03/08/23 05:37 Calculated Osmolality 267 mOsm/kg (285-295) L 03/08/23 05:37 Lactic Acid 0.9 mmol/L (0.5-2.2) 03/08/23 05:37 Calcium 9.7 mg/dL (8.5-10.5) 03/08/23 05:37 Total Bilirubin 0.2 mg/dL (0.15-1.2) 03/08/23 05:37 AST 24 U/L (0-32) 03/08/23 05:37 ALT 13 U/L (0-33) 03/08/23 05:37 Alkaline Phosphatase 73 U/L (35-105) 03/08/23 05:37 NT-Pro-B Natriuret Pep 248 pg/mL (0-125) H 03/08/23 05:37 Total Protein 6.5 g/dL (6.6-8.7) L 03/08/23 05:37 Albumin 3.1 g/dL (3.5-5.2) L 03/08/23 05:37 Globulin 3.4 g/dL (1.3-4.6) 03/08/23 05:37 Urine Color Straw (Yellow) 03/08/23 07:10 Urine Appearance Clear (CLEAR) 03/08/23 07:10 Urine pH 8 (5-7) H 03/08/23 07:10 Ur Specific [place] 1.005 (1.005-1.030) 03/08/23 07:10 Urine Protein Neg (Negative) 03/08/23 07:10 Urine Glucose (UA) Norm (Normal) 03/08/23 07:10 Urine Ketones Negative (Negative) 03/08/23 07:10 Urine Blood Neg (Negative) 03/08/23 07:10 Urine Nitrate Negative (Negative) 03/08/23 07:10 Urine Bilirubin Neg (Negative) 03/08/23 07:10 Prot Sulfosalicylic Acd Negative (Negative) 03/08/23 07:10 Urine Urobilinogen Norm mg/dL (Negative) 03/08/23 07:10 Ur Leukocyte Esterase Negative (Negative) 03/08/23 07:10 Influenza Type A Ag negative (Negative) 03/08/23 05:20 Influenza Type B Ag negative (Negative) 03/08/23 05:20 SARS-CoV-2 Ag (Rapid) negative (Negative) 03/08/23 05:20 Discharge Plan Discharge Patient Disposition: Home Clinical Impression: Generalized weakness Condition: Stable Prescriptions: No Action All Day Allergy (cetirizine) 10 mg capsule 10 mg PO DAILY PRN (Reason: Allergy Symptoms) Prolia 60 mg/mL syringe 60 mg SUBCUT .every 6 months azathioprine 50 mg tablet 100 mg PO BID (DME) Lift Chair Motor See Rx Instructions .Route .MEDSUPPLY Qty: 1 0RF Rx Instructions: As directed citalopram 40 mg tablet 40 mg PO DAILY Qty: 90 1RF nystatin 100,000 unit/gram cream 1 applic topical BID Qty: 30 0RF Rx Instructions: To affected area albuterol sulfate 90 mcg/actuation HFA aerosol inhaler 2 inh inhalation Q4H PRN (Reason: shortness of breath or wheezing) Qty: 8.5 1RF brimonidine 0.2 % drops 1 drp ophthalmic (eye) .COMPLEX 90 Days Qty: 30 1RF Rx Instructions: 1 drp ophthalmic (eye) 1 drop in each eye BID; (DME) Bone Growth Stimulator E0748 See Rx Instructions .Route .MEDSUPPLY Qty: 1 0RF Rx Instructions: As directed warfarin 10 mg tablet See Rx Instructions .ROUTE .COMPLEX Qty: 143 0RF Hold Instructions: Resume on 08/12/21. Dose Instruction: TAKE 1 TABLET DAILY ON , AND SATURDAYS. TAKE 2 TABLETS DAILY ON SUNDAYS, WED, WED AND FRIDAYS DIRECTED Rx Instructions: TAKE 15MG WEDNESDAY AND THURSDAYS, TAKE 17.5MG WEDNESDAY,WEDNESDAY,WEDNESDAY,Wednesday. WEDNESDAY AND WEDNESDAY 15MG, nortriptyline 25 mg capsule See Rx Instructions .ROUTE .COMPLEX Qty: 90 0RF Dose Instruction: TAKE 1 CAPSULE AT BEDTIME Rx Instructions: TAKE 1 CAPSULE AT BEDTIME furosemide 20 mg tablet See Rx Instructions .ROUTE .COMPLEX Qty: 90 0RF Dose Instruction: TAKE 1 TABLET EVERY MORNING Rx Instructions: TAKE 1 TABLET EVERY MORNING aripiprazole 2 mg tablet See Rx Instructions .ROUTE .COMPLEX Qty: 90 1RF Dose Instruction: TAKE ONE TABLET BY MOUTH EVERY DAY Rx Instructions: TAKE ONE TABLET BY MOUTH EVERY DAY atorvastatin 10 mg tablet See Rx Instructions .ROUTE .COMPLEX Qty: 90 0RF Dose Instruction: TAKE 1 TABLET EVERY DAY Rx Instructions: TAKE 1 TABLET EVERY DAY tramadol 50 mg tablet 50 mg PO Q6H PRN (Reason: pain) Qty: 30 0RF cholecalciferol (vitamin D3) 125 mcg (5,000 unit) capsule See Rx Instructions .ROUTE .COMPLEX Qty: 90 10RF Dose Instruction: TAKE 1 CAPSULE EVERY DAY Rx Instructions: TAKE 1 CAPSULE EVERY DAY calcium carbonate 600 mg calcium (1,500 mg) tablet See Rx Instructions .ROUTE .COMPLEX Qty: 90 10RF Dose Instruction: TAKE 1 TABLET EVERY DAY Rx Instructions: TAKE 1 TABLET EVERY DAY omeprazole 40 mg capsule,delayed release(DR/EC) See Rx Instructions .ROUTE .COMPLEX Qty: 90 10RF Dose Instruction: TAKE 1 CAPSULE EVERY DAY Rx Instructions: TAKE 1 CAPSULE EVERY DAY latanoprost 0.005 % drops 1 drp ophthalmic (eye) BEDTIME lactulose 10 gram/15 mL solution 15 ml PO PRN Rx Instructions: TAKE 15ML (10 GRAMS) DAILY Benadryl Allergy 25 mg Tablet 50 mg PO PRN PRN (Reason: Allergy Symptoms) Discharge Orders: Discharge ED (Routine); Ordered 03/08/23 Ordered By: Miller Dinero Referrals: Mckenna Rubin DO [Primary Care Provider] - 1-3 days Patient Instructions: Weakness (ED), Opioid Safety, Pain Management Activity Restrictions/Additional Instructions: Return for fever greater than 100, vomiting liquids or medications, worsening weakness, worsening mental status, any other concerning symptoms. Sign Out Sign Out Data: Patient Sign Out occurred on 03/08/23 at 07:13. Patient's care was discussed, and care was transferred from Gregory Ku DO to Miller Dinero DO. Coding Level of Care Code ED Cane Flume Feeding Machine Operator for Misti Elizabeth
[2023-03-08 05:15] VITALS: PULSE 100; RESP 18; O2SAT 95
[2023-03-08] MEDS: ipratropium-albuterol 3 mL Neb INHALATION (05:16)
[2023-03-08 05:27] VITALS: PULSE 99; O2SAT 92
[2023-03-08 05:32] LABS: ABG PCO2 43.1 mmHg (35-45); ABG PH Result 7.49 (7.35-7.45); Arterial Blood Gas Hematocrit 29.7 % (37-47); Base Excess ABG 8.1 mmol/L (-2.0-2.0); Blood Gas Sample Site Brachial, right; Blood Gas Sample Type Arterial; HCO3 ABG 32.4 mmol/L (22-26); Oxygen Device ROOM AIR
[2023-03-08 05:34] VITALS: BP 123/78; PULSE 100; RESP 22; O2SAT 92
[2023-03-08 05:56] LABS: Basophils # 0.1 10^3/uL (0.0-0.1); Basophils % 0.6 %; Eosinophils % 0.2 %; Hematocrit 27.3 % (36-47); Lymphocytes # 0.8 10^3/uL (0.8-4.8); Lymphocytes % 6.3 %; Mean Corpuscular HGB Conc 32.2 g/dL (30-55); Mean Corpuscular Hemoglobin 32.7 pg (27-33); Mean Corpuscular Volume 101.5 fl (85-98); Mean Platelet Volume 9.2 fL (7.4-10.4); Monocytes # 2.3 10^3/uL (0.2-0.9); Monocytes % 19.8 %; Neutrophils # 8.08 10^3/uL (1.8-7.7); Neutrophils % 68.3 %; Nucleated Red Blood Cells # 0.3 /100WBC; Nucleated Red Blood Cells % 2.7 %; Platelet Count 468 10^3/cmm (157-399); Red Blood Count 2.69 10^6/uL (3.85-5.65); Red Cell Distribution Width 21.8 % (12.1-15.1); White Blood Count 11.83 10^3/uL (3.29-11.43)
[2023-03-08 06:10] LABS: Lactic Sepsis W/Reflex 0.9 mmol/L (0.5-2.2)
[2023-03-08 06:10] LABS: Influenza A by IFA negative (Negative); Influenza B by IFA negative (Negative); SARS Covid-2 Antigen negative (Negative)
[2023-03-08 06:12] LABS: INR 2.29 (0.8-1.2)
[2023-03-08 06:20] LABS: Alanine Aminotransferase 13 U/L (0-33); Albumin Level 3.1 g/dL (3.5-5.2); Alkaline Phosphatase 73 U/L (35-105); Anion Gap 12.7 (5-19); Aspartate Amino Transferase 24 U/L (0-32); Blood Urea Nitrogen 14 mg/dL (8-23); Calcium 9.7 mg/dL (8.5-10.5); Carbon Dioxide 29 mmol/L (22-29); Chloride 91 mmol/L (98-107); Globulin 3.4 g/dL (1.3-4.6); Glomerular Filtration Rate 157.8 mL/min (90-130); Glucose 104 mg/dL (65-115); NT Pro B Type Natriuretic Pept 248 pg/mL (0-125); Osmolality Calculated 267 mOsm/kg (285-295); Potassium 4.7 mmol/L (3.5-5.1); Sodium 128 mmol/L (136-145); Total Bilirubin 0.2 mg/dL (0.15-1.2); Total Protein 6.5 g/dL (6.6-8.7)
--- NOTE | 2023-03-08 06:44 | ECG_ITS ---
[facility] Test Date: 2023-03-08 Pat Name: Carolyn Bedoya Department: Room: Gender: Female Punch Finisher: : 1950 Requested By: Gregory Manley Order Number: [id number] Rohit MD: Kang Curiel M.D. Measurements Intervals [place] Rate: 95 P: 70 IN: 143 QRS: 14 QRSD: 81 T: 67 QT: 348 QTc: 438 Interpretive Statements SINUS RHYTHM SEPTAL MYOCARDIAL INFARCTION , OF INDETERMINATE AGE [40+ ms Q WAVE IN V1/V2] Compared to ECG 10/30/2021 13:10:22 No significant changes Electronically Signed On 03-08-2023 8:17:34 STAGE SETTING PAINTER APPRENTICE by Kang Curiel M.D. [id number]
[2023-03-08 07:16] VITALS: BP 134/75; PULSE 100; O2SAT 93
[2023-03-08 07:22] LABS: Add Urine Microscopic? NO; Charge for UA Resulting for Rev
[2023-03-08 07:29] LABS: Bilirubin Urine Neg (Negative); Blood Urine Neg (Negative); Glucose Urine UA Norm (Normal); Ketones Urine Negative (Negative); Leukocyte Esterase Urine Negative (Negative); Nitrate Urine Negative (Negative); Protein Urine Neg (Negative); Specific Gravity, Urine 1.005 (1.005-1.030); Sulfosalicylic Acid Urine Negative (Negative); Urine Appearance Clear (CLEAR); Urine Color Straw (Yellow); Urobilinogen Urine Norm (Negative); pH Urine 8 (5-7)
[2023-03-08 08:35] VITALS: BP 139/83; PULSE 98; O2SAT 94
== END 2023-03-08 08:35 | disposition home or self-care (01) ==
PROVIDERS: Emergency Medicine; Emergency Provider Family Medicine; PCP Family Medicine
DX: R53.1 Weakness (principal); Z79.01 Long term (current) use of anticoagulants; Z11.52 Encounter for screening for COVID-19; Z87.891 Personal history of nicotine dependence; E78.5 Hyperlipidemia, unspecified
CPT/HCPCS: 36600; 70450; 71045; 80053; 81003; 82803; 83605; 83880; 85025; 85610; 85730; 87426; 87804; 93005; 94640; 99285; J7030

== ENCOUNTER 2023-03-18 11:43 | Outpatient (CLI) | payer MEDICARE, OTHER, SELFPAY ==
[2023-03-18 12:44] LABS: Basophils # 0.1 10^3/uL (0.0-0.1); Basophils % 1.1 %; Eosinophils # 0.1 10^3/uL (0.0-0.8); Eosinophils % 0.5 %; Hematocrit 29.4 % (36-47); Lymphocytes # 0.7 10^3/uL (0.8-4.8); Lymphocytes % 6.3 %; Mean Corpuscular HGB Conc 33.3 g/dL (30-55); Mean Corpuscular Hemoglobin 33.7 pg (27-33); Mean Platelet Volume 8.8 fL (7.4-10.4); Monocytes # 2.1 10^3/uL (0.2-0.9); Monocytes % 18.7 %; Neutrophils % 72.7 %; Nucleated Red Blood Cells % 0 %; Platelet Count 410 10^3/cmm (157-399); Red Blood Count 2.91 10^6/uL (3.85-5.65); Red Cell Distribution Width 21.3 % (12.1-15.1)
[2023-03-18 13:08] LABS: Alanine Aminotransferase 11 U/L (0-33); Albumin Level 3.6 g/dL (3.5-5.2); Alkaline Phosphatase 75 U/L (35-105); Anion Gap 14.4 (5-19); Aspartate Amino Transferase 16 U/L (0-32); Blood Urea Nitrogen 15 mg/dL (8-23); Calcium 9.3 mg/dL (8.5-10.5); Carbon Dioxide 25 mmol/L (22-29); Chloride 90 mmol/L (98-107); Globulin 3.2 g/dL (1.3-4.6); Glomerular Filtration Rate 157.8 mL/min (90-130); Glucose 98 mg/dL (65-115); Magnesium 1.7 mg/dL (1.7-2.3); Osmolality Calculated 261 mOsm/kg (285-295); Potassium 4.4 mmol/L (3.5-5.1); Sodium 125 mmol/L (136-145); Total Bilirubin 0.4 mg/dL (0.15-1.2); Total Protein 6.8 g/dL (6.6-8.7)
== END 2023-03-18 11:44 | disposition home or self-care (01) ==
LOC: LAB 11:44
PROVIDERS: PCP Family Medicine; Visit Provider Internal Medicine Medical Oncology
DX: C10.9 Malignant neoplasm of oropharynx, unspecified (principal); C09.9 Malignant neoplasm of tonsil, unspecified; D70.9 Neutropenia, unspecified; R50.81 Fever presenting with conditions classified elsewhere
CPT/HCPCS: 36415; 80053; 83735; 85025

== ENCOUNTER 2023-03-18 16:43 | Emergency (ER) | payer MEDICARE, OTHER, SELFPAY ==
[2023-03-18 16:54] VITALS: BP 123/76; PULSE 96; RESP 18; TEMP 36.3; O2SAT 99; BMI 31.1
[2023-03-18 17:30] VITALS: BP 119/79; PULSE 95; RESP 16; O2SAT 97; O2SAT 98
[2023-03-18] MEDS: sodium chloride 0.9% 1,000 ML 999 ML IV ×2 (17:42→19:10)
[2023-03-18 17:46] LABS: Basophils # 0.1 10^3/uL (0.0-0.1); Basophils % 1.1 %; Eosinophils # 0.1 10^3/uL (0.0-0.8); Eosinophils % 0.9 %; Hematocrit 28.3 % (36-47); Lymphocytes # 0.8 10^3/uL (0.8-4.8); Lymphocytes % 9.1 %; Mean Corpuscular HGB Conc 31.8 g/dL (30-55); Mean Corpuscular Hemoglobin 33.1 pg (27-33); Mean Platelet Volume 8.3 fL (7.4-10.4); Monocytes % 21.1 %; Neutrophils # 6.22 10^3/uL (1.8-7.7); Nucleated Red Blood Cells % 0 %; Platelet Count 351 10^3/cmm (157-399); Red Blood Count 2.72 10^6/uL (3.85-5.65); Red Cell Distribution Width 21.6 % (12.1-15.1); White Blood Count 9.27 10^3/uL (3.29-11.43)
[2023-03-18 18:05] LABS: Alanine Aminotransferase 10 U/L (0-33); Albumin Level 3.3 g/dL (3.5-5.2); Alkaline Phosphatase 67 U/L (35-105); Anion Gap 11.6 (5-19); Aspartate Amino Transferase 15 U/L (0-32); Blood Urea Nitrogen 18 mg/dL (8-23); Calcium 8.9 mg/dL (8.5-10.5); Carbon Dioxide 28 mmol/L (22-29); Chloride 90 mmol/L (98-107); Glomerular Filtration Rate 157.8 mL/min (90-130); Glucose 88 mg/dL (65-115); Osmolality Calculated 261 mOsm/kg (285-295); Potassium 4.6 mmol/L (3.5-5.1); Sodium 125 mmol/L (136-145); Total Bilirubin 0.3 mg/dL (0.15-1.2); Total Protein 6.3 g/dL (6.6-8.7)
--- NOTE | 2023-03-18 18:33 | W.ED.RECABL ---
HPI - Recheck/Abnormal Lab/Rx General: Chief Complaint: Recheck/Abnormal Lab/Rx Stated Complaint: sodium levels low, cancer goldie damon sent over Time Seen by Provider: 03/18/23 16:50 History of Present Illness: Patient presents to the ER from a call in her oncologist office due to her sodium being low. Patient sodium today was 125 as well as repeated in ER 125 again. Patient does have a history of off-and-on low sodiums in the past. Patient is a throat cancer patient undergoing treatment. Patient says she is on not on any diuretics at this time nor does she take any salt tablets. Patient has no complaints otherwise. Patient takes all her intake in by a PEG tube. 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 KEY (nonalcoholic steatohepatitis) Asthma Dyslipidemia Crohn disease Factor V deficiency DVT (deep venous thrombosis) recurrent Osteoporosis Anxiety and depression Pain in thoracic spine Stable burst fracture of fifth lumbar vertebra Low back pain of over 3 months duration Opioid contract exists Encounter for long-term opiate analgesic use Surgical History Status post lumbar spinal fusion History of ankle surgery History of arthroplasty of right shoulder History of back surgery 07/19/17 thoracic laminotomy, with placement of intraspinal epidureal paddle electrode arrays( [employer]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 Placement of subcutaneous programmable pulse generator ([employer] History of knee replacement, total 02/2015 History of total replacement of right shoulder joint 2007 and multiple surgeries Hx of eye surgery stent placed in left eye and cataracts History of arthroscopy of left knee x3 History of lumpectomy of right breast 2007 History of basal cell carcinoma excision Nasal Hx of tonsillectomy age 4 History of partial hysterectomy 1986 Family History Unknown Cancer Mother CAD (coronary artery disease) Hypertension Lung disease Sister CAD (coronary artery disease) Cancer Chronic kidney disease (CKD) Hyperlipidemia Hypertension Sister Cancer Hypertension Father Cancer Denies family history of Diabetes Clotting disorder Dementia Psychiatric illness Suicide Anesthesia complication Bleeding disorder Family history of premature coronary artery disease Stroke Social History Smoking and tobacco/nicotine status: former use of tobacco/nicotine Quit status (tobacco/nicotine): has quit using Year quit tobacco: 07/2022 Former quit date comment: Smoked for 7+ years Alcohol intake: former Substance/Drug Use: never Physical Exam Const: COMMON NORMALS: no acute distress, average body habitus, patient oriented x3, no limitations, healthy appearing, alert and well nourished HENMT: COMMON NORMALS: normocephalic, atraumatic, hearing grossly normal bilaterally, external ears normal, Normal external nose present, moist oral mucous membranes and oropharynx normal HEAD & SCALP: normocephalic and atraumatic NOSE: Normal external nose present EXTERNAL EAR: Yes external ears normal Neck/C-Spine: COMMON NORMALS: no JVD Chest: COMMONS NORMALS: normal inspection of the chest and normal palpation of entire chest wall Resp: COMMON NORMALS: normal respiratory effort, No retractions, No use of accessory muscles and clear to auscultation bilaterally AUSCULTATION: clear to auscultation bilaterally Cardio: COMMON NORMALS: no JVD, regular rate, regular rhythm, S1 normal heart sound present, S2 normal heart sound present, No gallops present (Cardio), No clicks present (Cardio), No murmurs present (Cardio) and No rub (Cardio) RATE: regular rate RHYTHM: regular rhythm HEART SOUNDS: S1 normal heart sound present and S2 normal heart sound present GI: COMMON NORMALS: Normal to inspection, nondistended, normoactive bowel sounds present, Soft to palpation, non-tender, No hepatosplenomegaly present and no masses PALPATION: Yes Soft to palpation and Yes No hepatosplenomegaly present Neuro: COMMON NORMALS: patient oriented x3 SENSORIUM/ORIENTATION: Yes alert Course Vital Signs: Vital signs: Vital Signs Temperature 97.3 F L 03/18/23 16:54 Pulse Rate 103 H 03/18/23 21:20 Respiratory Rate 16 03/18/23 21:20 Blood Pressure 131/70 03/18/23 21:20 Pulse Oximetry 97 03/18/23 21:20 Oxygen Delivery Me thod Room Air 03/18/23 18:43 MDM - Recheck/Abnormal Lab/Rx Medical Decision Making Patient presents to the ER with complaints of hyponatremia per lab. Otherwise patient has no complaints at this time. Lab work did reveal sodium was 125. Patient received 2 L normal saline IV. Patient will be discharged on salt tablets and instructed to follow-up with her PCP in approximately 7 days for reevaluation and labs. Differential Diagnosis Unlikely encounter for medication refill, encounter for wound recheck, encounter for recheck of burn, encounter for removal of sutures or warfarin-induced coagulopathy Medical Records I reviewed the patient's medical records. Lab Data I reviewed the patient's lab results. 03/18/23 17:40 03/18/23 17:40 Laboratory Results WBC 9.27 10^3/uL (3.29-11.43) 03/18/23 17:40 RBC 2.72 10^6/uL (3.85-5.65) L 03/18/23 17:40 Hgb 9.00 g/dL (11.27-16.99) L 03/18/23 17:40 Hct 28.3 % (36-47) L 03/18/23 17:40 MCV 104.0 fl (85-98) H 03/18/23 17:40 MCH 33.1 pg (27-33) H 03/18/23 17:40 MCHC 31.8 g/dL (30-55) 03/18/23 17:40 RDW 21.6 % (12.1-15.1) H 03/18/23 17:40 Plt Count 351 10^3/cmm (157-399) 03/18/23 17:40 MPV 8.3 fL (7.4-10.4) 03/18/23 17:40 Neut % (Auto) 67.0 % 03/18/23 17:40 Lymph % (Auto) 9.1 % 03/18/23 17:40 [place] % (Auto) 21.1 % 03/18/23 17:40 Eos % (Auto) 0.9 % 03/18/23 17:40 Baso % (Auto) 1.1 % 03/18/23 17:40 Neut # (Auto) 6.22 10^3/uL (1.8-7.7) 03/18/23 17:40 Lymph # (Auto) 0.8 10^3/uL (0.8-4.8) 03/18/23 17:40 [place] # (Auto) 2.0 10^3/uL (0.2-0.9) H 03/18/23 17:40 Eos # (Auto) 0.1 10^3/uL (0.0-0.8) 03/18/23 17:40 Baso # (Auto) 0.1 10^3/uL (0.0-0.1) 03/18/23 17:40 Nucleated RBC % (auto) 0 % 03/18/23 17:40 Nucleated RBCs # 0.0 /100WBC 03/18/23 17:40 Sodium 125 mmol/L (136-145) L 03/18/23 17:40 Potassium 4.6 mmol/L (3.5-5.1) 03/18/23 17:40 Chloride 90 mmol/L (98-107) L 03/18/23 17:40 Carbon Dioxide 28 mmol/L (22-29) 03/18/23 17:40 Anion Gap 11.6 (5-19) 03/18/23 17:40 BUN 18 mg/dL (8-23) 03/18/23 17:40 Creatinine 0.4 mg/dL (0.5-0.9) L 03/18/23 17:40 GFR Calculation 157.8 mL/min (90-130) H 03/18/23 17:40 Glucose 88 mg/dL (65-115) 03/18/23 17:40 Calculated Osmolality 261 mOsm/kg (285-295) L 03/18/23 17:40 Calcium 8.9 mg/dL (8.5-10.5) 03/18/23 17:40 Total Bilirubin 0.3 mg/dL (0.15-1.2) 03/18/23 17:40 AST 15 U/L (0-32) 03/18/23 17:40 ALT 10 U/L (0-33) 03/18/23 17:40 Alkaline Phosphatase 67 U/L (35-105) 03/18/23 17:40 Total Protein 6.3 g/dL (6.6-8.7) L 03/18/23 17:40 Albumin 3.3 g/dL (3.5-5.2) L 03/18/23 17:40 Globulin 3.0 g/dL (1.3-4.6) 03/18/23 17:40 All radiology interpretation(s) finalized by discharge Discharge Plan Discharge Patient Disposition: Home Clinical Impression: Hyponatremia Condition: Stable Prescriptions: No Action All Day Allergy (cetirizine) 10 mg capsule 10 mg PO DAILY PRN (Reason: Allergy Symptoms) Prolia 60 mg/mL syringe 60 mg SUBCUT .every 6 months azathioprine 50 mg tablet 100 mg PO BID (DME) Lift Chair Motor See Rx Instructions .Route .MEDSUPPLY Qty: 1 0RF Rx Instructions: As directed citalopram 40 mg tablet 40 mg PO DAILY Qty: 90 1RF nystatin 100,000 unit/gram cream 1 applic topical BID Qty: 30 0RF Rx Instructions: To affected area atorvastatin 10 mg tablet 10 mg PO DAILY fentanyl 37.5 mcg/hour patch 72 hour 1 patch transdermal Q72H lidocaine HCl [Lidocaine Viscous] 2 % solution 1 applic mucous membrane QID oxycodone 20 mg/mL (1 mL) concentrate 20 mg PO BID PRN albuterol sulfate 90 mcg/actuation HFA aerosol inhaler 2 inh inhalation Q4H PRN (Reason: shortness of breath or wheezing) Qty: 8.5 1RF brimonidine 0.2 % drops 1 drp ophthalmic (eye) .COMPLEX 90 Days Qty: 30 1RF Rx Instructions: 1 drp ophthalmic (eye) 1 drop in each eye BID; (DME) Bone Growth Stimulator E0748 See Rx Instructions .Route .MEDSUPPLY Qty: 1 0RF Rx Instructions: As directed warfarin 10 mg tablet See Rx Instructions .ROUTE .COMPLEX Qty: 143 0RF Hold Instructions: Resume on 08/12/21. Dose Instruction: TAKE 1 TABLET DAILY ON , AND SATURDAYS. TAKE 2 TABLETS DAILY ON SUNDAYS, WED, WED AND FRIDAYS DIRECTED Rx Instructions: TAKE 15MG WEDNESDAY AND THURSDAYS, TAKE 17.5MG WEDNESDAY,WEDNESDAY,WEDNESDAY,Wednesday. WEDNESDAY AND WEDNESDAY 15MG, nortriptyline 25 mg capsule See Rx Instructions .ROUTE .COMPLEX Qty: 90 0RF Dose Instruction: TAKE 1 CAPSULE AT BEDTIME Rx Instructions: TAKE 1 CAPSULE AT BEDTIME furosemide 20 mg tablet See Rx Instructions .ROUTE .COMPLEX Qty: 90 0RF Dose Instruction: TAKE 1 TABLET EVERY MORNING Rx Instructions: TAKE 1 TABLET EVERY MORNING aripiprazole 2 mg tablet See Rx Instructions .ROUTE .COMPLEX Qty: 90 1RF Dose Instruction: TAKE ONE TABLET BY MOUTH EVERY DAY Rx Instructions: TAKE ONE TABLET BY MOUTH EVERY DAY tramadol 50 mg tablet 50 mg PO Q6H PRN (Reason: pain) Qty: 30 0RF cholecalciferol (vitamin D3) 125 mcg (5,000 unit) capsule See Rx Instructions .ROUTE .COMPLEX Qty: 90 10RF Dose Instruction: TAKE 1 CAPSULE EVERY DAY Rx Instructions: TAKE 1 CAPSULE EVERY DAY calcium carbonate 600 mg calcium (1,500 mg) tablet See Rx Instructions .ROUTE .COMPLEX Qty: 90 10RF Dose Instruction: TAKE 1 TABLET EVERY DAY Rx Instructions: TAKE 1 TABLET EVERY DAY omeprazole 40 mg capsule,delayed release(DR/EC) See Rx Instructions .ROUTE .COMPLEX Qty: 90 10RF Dose Instruction: TAKE 1 CAPSULE EVERY DAY Rx Instructions: TAKE 1 CAPSULE EVERY DAY folic acid 1 mg tablet 1 mg PO DAILY Qty: 90 1RF latanoprost 0.005 % drops 1 drp ophthalmic (eye) BEDTIME lactulose 10 gram/15 mL solution 15 ml PO PRN Rx Instructions: TAKE 15ML (10 GRAMS) DAILY Benadryl Allergy 25 mg Tablet 50 mg PO PRN PRN (Reason: Allergy Symptoms) Discharge Orders: Discharge ED (Routine); Ordered 03/18/23 Ordered By: Eladio Owens Referrals: Mckenna Rubin DO [Primary Care Provider] - 1 week Patient Instructions: Hyponatremia (ED) Activity Restrictions/Additional Instructions: Continue take all medicine as prescribed. Please start [id number] salt tablets at a strength of 1 g twice a day by PEG tube. Please follow-up with your family practice physician within 7 days for repeat testing and recheck on your sodium. Coding Level of Care Code ED Stenciler for Misti Elizabeth
[2023-03-18 18:43] VITALS: BP 137/78; PULSE 89; RESP 17; O2SAT 97
[2023-03-18 21:20] VITALS: BP 131/70; PULSE 103; RESP 16; O2SAT 97
== END 2023-03-18 21:25 | disposition home or self-care (01) ==
PROVIDERS: Emergency Provider Emergency Medicine; PCP Family Medicine
DX: E87.1 Hypo-osmolality and hyponatremia (principal); Z79.01 Long term (current) use of anticoagulants; Z87.891 Personal history of nicotine dependence; Z85.89 Personal history of malignant neoplasm of other organs and systems; E78.5 Hyperlipidemia, unspecified; C10.9 Malignant neoplasm of oropharynx, unspecified; C09.9 Malignant neoplasm of tonsil, unspecified; D70.9 Neutropenia, unspecified; R50.81 Fever presenting with conditions classified elsewhere
CPT/HCPCS: 36415; 80053; 83735; 85025; 96361; 96374; 99284; J1642; J7030

== ENCOUNTER → 2023-03-26 14:54 | Outpatient (BNVA) | payer MEDICARE, OTHER, SELFPAY | PROVIDERS: PCP Family Medicine; Visit Provider Family Medicine | DX: E87.1 Hypo-osmolality and hyponatremia (principal) | CPT/HCPCS: 80048 ==

== ENCOUNTER 2023-04-09 10:59 | Emergency (ER) | payer MEDICARE, OTHER, SELFPAY ==
[2023-04-09 11:11] VITALS: BP 122/74; PULSE 96; RESP 14; TEMP 36.5; O2SAT 96
[2023-04-09 15:14] VITALS: BP 143/84; PULSE 90; O2SAT 98
--- NOTE | 2023-04-09 16:41 | W.ED.GENADLT ---
Documented by User: BROOKE Swanson 04/09/23 17:04 HPI - General Adult General: Chief complaint: General Medical Stated complaint: Feeding tube came out Time Seen by Provider: 04/09/23 16:00 Source: patient Mode of arrival: ambulatory Limitations: no limitations History of Present Illness: Patient is a 72-year-old female presents to ED today stating that her PEG feeding tube fell out. She states feeding tube was placed approximately 8 to 9 weeks ago due to having some type of oral pharyngeal cancer and limited PO intake. She is not having any abdominal complaints. States there was no trauma to the tube that she is aware of. Location: abdomen Relieving factors: none Exacerbating factors: none Associated symptoms: Deny chest pain, dyspnea or malaise Treatments prior to arrival: none Review of Systems Const: Denies: fever(s), chills, body aches, fatigue or malaise Card: Denies: chest pain Resp: Denies: dyspnea GI: Denies: abdominal pain PFS ED PFSH: Medical History Hyponatremia Tonsil cancer Postoperative ileus Spinal stenosis, lumbar region, with neurogenic claudication Lumbar disc prolapse with compression radiculopathy Closed L2 vertebral fracture Nicotine dependence, cigarettes, with unspecified nicotine-induced disorders Compression fracture of L2 Diverticulosis large intestine w/o perforation or abscess w/bleeding History of Crohn's disease Current use of intermediate card tender anticoagulation KEY (nonalcoholic steatohepatitis) Asthma Dyslipidemia Crohn disease Factor V deficiency DVT (deep venous thrombosis) recurrent Osteoporosis Anxiety and depression Pain in thoracic spine Stable burst fracture of fifth lumbar vertebra Low back pain of over 3 months duration Opioid contract exists Encounter for long-term opiate analgesic use Surgical History Status post lumbar spinal fusion History of ankle surgery History of arthroplasty of right shoulder History of back surgery 07/19/17 thoracic laminotomy, with placement of intraspinal epidureal paddle electrode arrays( [employer] ([employer]: [place]) artisan, 70cm, 2x8 certified surgical technologist). Placement of subcutaneous programmable pulse generator (AvidBiotics) History of knee replacement, total 02/2015 History of total replacement of right shoulder joint 2007 and multiple surgeries Hx of eye surgery stent placed in left eye and cataracts History of arthroscopy of left knee x3 History of lumpectomy of right breast 2007 History of basal cell carcinoma excision Nasal Hx of tonsillectomy age 4 History of partial hysterectomy 1985 Family History Unknown Cancer Mother CAD (coronary artery disease) Hypertension Lung disease Sister CAD (coronary artery disease) Cancer Chronic kidney disease (CKD) Hyperlipidemia Hypertension Sister Cancer Hypertension Father Cancer Denies family history of Diabetes Clotting disorder Dementia Psychiatric illness Suicide Anesthesia complication Bleeding disorder Family history of premature coronary artery disease Stroke Social History Smoking and tobacco/nicotine status: former use of tobacco/nicotine Quit status (tobacco/nicotine): has quit using Year quit tobacco: 07/2022 Former quit date comment: Smoked for 7+ years Alcohol intake: former Substance/Drug Use: never Physical Exam Const: COMMON NORMALS: no acute distress, average body habitus, patient oriented x3, no limitations, healthy appearing, alert and well nourished Resp: COMMON NORMALS: normal respiratory effort and clear to auscultation bilaterally AUSCULTATION: clear to auscultation bilaterally Cardio: COMMON NORMALS: regular rate and regular rhythm RATE: regular rate RHYTHM: regular rhythm GI: COMMON NORMALS: Normal to inspection, nondistended, normoactive bowel sounds present, Soft to palpation, non-tender, No hepatosplenomegaly present and no masses INSPECTION: Yes normal to inspection AUSCULTATION: Yes normoactive bowel sounds PALPATION: Yes Soft to palpation, No Tenderness to palpation present (GI), No Guarding due to palpation present (GI), No Rigid due to palpation and Yes No hepatosplenomegaly present OTHER: PEG tube site appears clean/non-infected Neuro: COMMON NORMALS: patient oriented x3 SENSORIUM/ORIENTATION: Yes alert Course Vital Signs: Vital signs: Vital Signs Temperature 97.7 F 04/09/23 11:11 Pulse Rate 87 04/09/23 19:42 Respiratory Rate 14 04/09/23 11:11 Blood Pressure 144/86 04/09/23 19:42 Pulse Oximetry 96 04/09/23 19:42 Oxygen Delivery Me thod Room Air 04/09/23 17:00 MDM - General Adult Lab Data Radiology Impressions KUB X-Ray 04/09/23 17:01 IMPRESSION: As above. Discharge Plan Discharge Patient Disposition: Home Clinical Impression: Complaint associated with gastric tube Condition: Stable Prescriptions: No Action All Day Allergy (cetirizine) 10 mg capsule 10 mg PO DAILY PRN (Reason: Allergy Symptoms) Prolia 60 mg/mL syringe 60 mg SUBCUT .every 6 months (DME) Lift Chair Motor See Rx Instructions .Route .MEDSUPPLY Qty: 1 0RF Rx Instructions: As directed citalopram 40 mg tablet 40 mg PO DAILY Qty: 90 1RF nystatin 100,000 unit/gram cream 1 applic topical BID Qty: 30 0RF Rx Instructions: To affected area atorvastatin 10 mg tablet 10 mg PO DAILY fentanyl 37.5 mcg/hour patch 72 hour 1 patch transdermal Q72H lidocaine HCl [Lidocaine Viscous] 2 % solution 1 applic mucous membrane QID oxycodone 20 mg/mL (1 mL) concentrate 20 mg PO BID PRN albuterol sulfate 90 mcg/actuation HFA aerosol inhaler 2 inh inhalation Q4H PRN (Reason: shortness of breath or wheezing) Qty: 8.5 1RF amoxicillin 875 mg tablet 875 mg PO BID brimonidine 0.2 % drops 1 drp ophthalmic (eye) .COMPLEX 90 Days Qty: 30 1RF Rx Instructions: 1 drp ophthalmic (eye) 1 drop in each eye BID; (DME) Bone Growth Stimulator E0748 See Rx Instructions .Route .MEDSUPPLY Qty: 1 0RF Rx Instructions: As directed warfarin 10 mg tablet See Rx Instructions .ROUTE .COMPLEX Qty: 143 0RF Hold Instructions: Resume on 08/12/21. Dose Instruction: TAKE 1 TABLET DAILY ON , AND SATURDAYS. TAKE 2 TABLETS DAILY ON SUNDAYS, WED, WED AND FRIDAYS DIRECTED Rx Instructions: TAKE 15MG WEDNESDAY AND THURSDAYS, TAKE 17.5MG WEDNESDAY,WEDNESDAY,WEDNESDAY,Wednesday. WEDNESDAY AND WEDNESDAY 15MG, nortriptyline 25 mg capsule See Rx Instructions .ROUTE .COMPLEX Qty: 90 0RF Dose Instruction: TAKE 1 CAPSULE AT BEDTIME Rx Instructions: TAKE 1 CAPSULE AT BEDTIME furosemide 20 mg tablet See Rx Instructions .ROUTE .COMPLEX Qty: 90 0RF Dose Instruction: TAKE 1 TABLET EVERY MORNING Rx Instructions: TAKE 1 TABLET EVERY MORNING aripiprazole 2 mg tablet See Rx Instructions .ROUTE .COMPLEX Qty: 90 1RF Dose Instruction: TAKE ONE TABLET BY MOUTH EVERY DAY Rx Instructions: TAKE ONE TABLET BY MOUTH EVERY DAY tramadol 50 mg tablet 50 mg PO Q6H PRN (Reason: pain) Qty: 30 0RF cholecalciferol (vitamin D3) 125 mcg (5,000 unit) capsule See Rx Instructions .ROUTE .COMPLEX Qty: 90 10RF Dose Instruction: TAKE 1 CAPSULE EVERY DAY Rx Instructions: TAKE 1 CAPSULE EVERY DAY calcium carbonate 600 mg calcium (1,500 mg) tablet See Rx Instructions .ROUTE .COMPLEX Qty: 90 10RF Dose Instruction: TAKE 1 TABLET EVERY DAY Rx Instructions: TAKE 1 TABLET EVERY DAY omeprazole 40 mg capsule,delayed release(DR/EC) See Rx Instructions .ROUTE .COMPLEX Qty: 90 10RF Dose Instruction: TAKE 1 CAPSULE EVERY DAY Rx Instructions: TAKE 1 CAPSULE EVERY DAY folic acid 1 mg tablet 1 mg PO DAILY Qty: 90 1RF latanoprost 0.005 % drops 1 drp ophthalmic (eye) BEDTIME lactulose 10 gram/15 mL solution 15 ml PO PRN Rx Instructions: TAKE 15ML (10 GRAMS) DAILY Benadryl Allergy 25 mg Tablet 50 mg PO PRN PRN (Reason: Allergy Symptoms) Discharge Orders: Discharge ED (Routine); Ordered 04/09/23 Ordered By: Gregory Ku Referrals: Mckenna Rubin DO [Primary Care Provider] - Patient Instructions: GI Tube Care, Opioid Safety, Pain Management Activity Restrictions/Additional Instructions: Return for increasing pain or any other problems associated with your tube. Coding Level of Care Code ED Assessment Rn for Chg Fwd Documented by User: Gregory Ku DO 04/09/23 19:27 HPI - General Adult General: Chief complaint: General Medical Stated complaint: Feeding tube came out Time Seen by Provider: 04/09/23 16:00 PFS ED PFSH: Medical History Hyponatremia Tonsil cancer Postoperative ileus Spinal stenosis, lumbar region, with neurogenic claudication Lumbar disc prolapse with compression radiculopathy Closed L2 vertebral fracture Nicotine dependence, cigarettes, with unspecified nicotine-induced disorders Compression fracture of L2 Diverticulosis large intestine w/o perforation or abscess w/bleeding History of Crohn's disease Current use of intermediate card tender anticoagulation KEY (nonalcoholic steatohepatitis) Asthma Dyslipidemia Crohn disease Factor V deficiency DVT (deep venous thrombosis) recurrent Osteoporosis Anxiety and depression Pain in thoracic spine Stable burst fracture of fifth lumbar vertebra Low back pain of over 3 months duration Opioid contract exists Encounter for long-term opiate analgesic use Surgical History Status post lumbar spinal fusion History of ankle surgery History of arthroplasty of right shoulder History of back surgery 07/19/17 thoracic laminotomy, with placement of intraspinal epidureal paddle electrode arrays( [employer] ([employer]: [place]) artisan, 70cm, 2x8 certified surgical technologist). Placement of subcutaneous programmable pulse generator (AvidBiotics) History of knee replacement, total 02/2015 History of total replacement of right shoulder joint 2008 and multiple surgeries Hx of eye surgery stent placed in left eye and cataracts History of arthroscopy of left knee x3 History of lumpectomy of right breast 2007 History of basal cell carcinoma excision Nasal Hx of tonsillectomy age 4 History of partial hysterectomy 1985 Family History Unknown Cancer Mother CAD (coronary artery disease) Hypertension Lung disease Sister CAD (coronary artery disease) Cancer Chronic kidney disease (CKD) Hyperlipidemia Hypertension Sister Cancer Hypertension Father Cancer Denies family history of Diabetes Clotting disorder Dementia Psychiatric illness Suicide Anesthesia complication Bleeding disorder Family history of premature coronary artery disease Stroke Social History Smoking and tobacco/nicotine status: former use of tobacco/nicotine Quit status (tobacco/nicotine): has quit using Year quit tobacco: 07/2022 Former quit date comment: Smoked for 7+ years Alcohol intake: former Substance/Drug Use: never Course Vital Signs: Vital signs: Vital Signs Temperature 97.7 F 04/09/23 11:11 Pulse Rate 87 04/09/23 19:42 Respiratory Rate 14 04/09/23 11:11 Blood Pressure 144/86 04/09/23 19:42 Pulse Oximetry 96 04/09/23 19:42 Oxygen Delivery Me thod Room Air 04/09/23 17:00 MDM - General Adult Medical Decision Making 16 Polish gastric tube replaced. 5 mL of saline infused into balloon. Secured. No complication. Will allow home. Lab Data Radiology Impressions KUB X-Ray 04/09/23 17:01 IMPRESSION: As above. All radiology interpretation(s) finalized by discharge Discharge Plan Discharge Patient Disposition: Home Clinical Impression: Complaint associated with gastric tube Condition: Stable Prescriptions: No Action All Day Allergy (cetirizine) 10 mg capsule 10 mg PO DAILY PRN (Reason: Allergy Symptoms) Prolia 60 mg/mL syringe 60 mg SUBCUT .every 6 months (DME) Lift Chair Motor See Rx Instructions .Route .MEDSUPPLY Qty: 1 0RF Rx Instructions: As directed citalopram 40 mg tablet 40 mg PO DAILY Qty: 90 1RF nystatin 100,000 unit/gram cream 1 applic topical BID Qty: 30 0RF Rx Instructions: To affected area atorvastatin 10 mg tablet 10 mg PO DAILY fentanyl 37.5 mcg/hour patch 72 hour 1 patch transdermal Q72H lidocaine HCl [Lidocaine Viscous] 2 % solution 1 applic mucous membrane QID oxycodone 20 mg/mL (1 mL) concentrate 20 mg PO BID PRN albuterol sulfate 90 mcg/actuation HFA aerosol inhaler 2 inh inhalation Q4H PRN (Reason: shortness of breath or wheezing) Qty: 8.5 1RF amoxicillin 875 mg tablet 875 mg PO BID brimonidine 0.2 % drops 1 drp ophthalmic (eye) .COMPLEX 90 Days Qty: 30 1RF Rx Instructions: 1 drp ophthalmic (eye) 1 drop in each eye BID; (DME) Bone Growth Stimulator E0748 See Rx Instructions .Route .MEDSUPPLY Qty: 1 0RF Rx Instructions: As directed warfarin 10 mg tablet See Rx Instructions .ROUTE .COMPLEX Qty: 143 0RF Hold Instructions: Resume on 08/12/21. Dose Instruction: TAKE 1 TABLET DAILY ON , AND SATURDAYS. TAKE 2 TABLETS DAILY ON SUNDAYS, WED, WED AND FRIDAYS DIRECTED Rx Instructions: TAKE 15MG WEDNESDAY AND THURSDAYS, TAKE 17.5MG WEDNESDAY,WEDNESDAY,WEDNESDAY,Wednesday. WEDNESDAY AND WEDNESDAY 15MG, nortriptyline 25 mg capsule See Rx Instructions .ROUTE .COMPLEX Qty: 90 0RF Dose Instruction: TAKE 1 CAPSULE AT BEDTIME Rx Instructions: TAKE 1 CAPSULE AT BEDTIME furosemide 20 mg tablet See Rx Instructions .ROUTE .COMPLEX Qty: 90 0RF Dose Instruction: TAKE 1 TABLET EVERY MORNING Rx Instructions: TAKE 1 TABLET EVERY MORNING aripiprazole 2 mg tablet See Rx Instructions .ROUTE .COMPLEX Qty: 90 1RF Dose Instruction: TAKE ONE TABLET BY MOUTH EVERY DAY Rx Instructions: TAKE ONE TABLET BY MOUTH EVERY DAY tramadol 50 mg tablet 50 mg PO Q6H PRN (Reason: pain) Qty: 30 0RF cholecalciferol (vitamin D3) 125 mcg (5,000 unit) capsule See Rx Instructions .ROUTE .COMPLEX Qty: 90 10RF Dose Instruction: TAKE 1 CAPSULE EVERY DAY Rx Instructions: TAKE 1 CAPSULE EVERY DAY calcium carbonate 600 mg calcium (1,500 mg) tablet See Rx Instructions .ROUTE .COMPLEX Qty: 90 10RF Dose Instruction: TAKE 1 TABLET EVERY DAY Rx Instructions: TAKE 1 TABLET EVERY DAY omeprazole 40 mg capsule,delayed release(DR/EC) See Rx Instructions .ROUTE .COMPLEX Qty: 90 10RF Dose Instruction: TAKE 1 CAPSULE EVERY DAY Rx Instructions: TAKE 1 CAPSULE EVERY DAY folic acid 1 mg tablet 1 mg PO DAILY Qty: 90 1RF latanoprost 0.005 % drops 1 drp ophthalmic (eye) BEDTIME lactulose 10 gram/15 mL solution 15 ml PO PRN Rx Instructions: TAKE 15ML (10 GRAMS) DAILY Benadryl Allergy 25 mg Tablet 50 mg PO PRN PRN (Reason: Allergy Symptoms) Discharge Orders: Discharge ED (Routine); Ordered 04/09/23 Ordered By: Gregory Ku Referrals: Mckenna Rubin DO [Primary Care Provider] - Patient Instructions: GI Tube Care, Opioid Safety, Pain Management Activity Restrictions/Additional Instructions: Return for increasing pain or any other problems associated with your tube. Coding Level of Care Code ED Assessment Rn for Chg Fwd Documented by User: Miller Dinero DO 04/10/23 06:57 HPI - General Adult General: Chief complaint: General Medical Stated complaint: Feeding tube came out Time Seen by Provider: 04/09/23 16:00 History of Present Illness: 72-year-old female presents emergency room after PEG tube fell out this morning. No nausea vomiting or diarrhea no hematemesis coffee-ground emesis slight bloody mucousy drainage from the PEG tube has been minimal. She has a PEG tube placed about 2 months ago in [place] due to laryngeal cancer she can swallow liquids but cannot swallow any thickened liquids or solids. Relies on PEG tube for nutrition Onset (ago): hour(s) Associated symptoms: Deny chest pain, confusion, cough, diaphoresis, decreased appetite, dyspnea, fevers/chills, headache(s), malaise, nausea, rash, palpitations, seizures, short of breath, syncope, vomiting or weakness Review of Systems Const: Denies: fever(s), chills, malaise or diaphoresis Card: Denies: chest pain, palpitations or syncope Resp: Denies: dyspnea GI: Denies: abdominal pain, nausea or vomiting : Denies: dysuria, urinary frequency or urinary urgency Musc: Denies: neck pain or back pain Skin/Breast: Denies: rash Neuro: Denies: headache(s) or confusion PFSH ED PFSH: Medical History Hyponatremia Tonsil cancer Postoperative ileus Spinal stenosis, lumbar region, with neurogenic claudication Lumbar disc prolapse with compression radiculopathy Closed L2 vertebral fracture Nicotine dependence, cigarettes, with unspecified nicotine-induced disorders Compression fracture of L2 Diverticulosis large intestine w/o perforation or abscess w/bleeding History of Crohn's disease Current use of prison anticoagulation KEY (nonalcoholic steatohepatitis) Asthma Dyslipidemia Crohn disease Factor V deficiency DVT (deep venous thrombosis) recurrent Osteoporosis Anxiety and depression Pain in thoracic spine Stable burst fracture of fifth lumbar vertebra Low back pain of over 3 months duration Opioid contract exists Encounter for long-term opiate analgesic use Surgical History Status post lumbar spinal fusion History of ankle surgery History of arthroplasty of right shoulder History of back surgery 07/19/17 thoracic laminotomy, with placement of intraspinal epidureal paddle electrode arrays( [employer] ([employer]: [place]) artisan, 70cm, 2x8 certified surgical technologist). Placement of subcutaneous programmable pulse generator (AvidBiotics) History of knee replacement, total 02/2015 History of total replacement of right shoulder joint 2008 and multiple surgeries Hx of eye surgery stent placed in left eye and cataracts History of arthroscopy of left knee x3 History of lumpectomy of right breast 2007 History of basal cell carcinoma excision Nasal Hx of tonsillectomy age 4 History of partial hysterectomy 1985 Family History Unknown Cancer Mother CAD (coronary artery disease) Hypertension Lung disease Sister CAD (coronary artery disease) Cancer Chronic kidney disease (CKD) Hyperlipidemia Hypertension Sister Cancer Hypertension Father Cancer Denies family history of Diabetes Clotting disorder Dementia Psychiatric illness Suicide Anesthesia complication Bleeding disorder Family history of premature coronary artery disease Stroke Social History Smoking and tobacco/nicotine status: former use of tobacco/nicotine Quit status (tobacco/nicotine): has quit using Year quit tobacco: 07/2022 Former quit date comment: Smoked for 7+ years Alcohol intake: former Substance/Drug Use: never Physical Exam Const: COMMON NORMALS: no acute distress GENERAL APPEARANCE: cooperative and comfortable ORIENTATION/CONSCIOUSNESS: Yes awake, Yes oriented to person, Yes oriented to place and Yes oriented to time HENMT: COMMON NORMALS: normocephalic, atraumatic and hearing grossly normal bilaterally HEAD & SCALP: normocephalic and atraumatic Resp: COMMON NORMALS: normal respiratory effort, No retractions, No use of accessory muscles and clear to auscultation bilaterally AUSCULTATION: clear to auscultation bilaterally Cardio: COMMON NORMALS: regular rate, regular rhythm and No murmurs present (Cardio) RATE: regular rate RHYTHM: regular rhythm GI: COMMON NORMALS: Soft to palpation and No hepatosplenomegaly present AUSCULTATION: Yes normoactive bowel sounds PALPATION: Yes Soft to palpation, No Tenderness to palpation present (GI), No Guarding due to palpation present (GI) and Yes No hepatosplenomegaly present OTHER: Stomach left upper quadrant abdominal wall initially attempt to place 18 Polish unable to get it to pass 16 Polish past without significant difficulty confirm placement with Gastrografin and KUB. Subsequently were not able to find a gastric tube a Alfred was attempted to be placed however did not have sufficient length to reach the stomach. This was removed and a Nava was was again replaced to preserve the stoma see notes below Extremity: COMMON NORMALS: normal to inspection, capillary refill normal, no clubbing, cyanosis or edema, no calf tenderness and no pedal edema Neuro: SENSORIUM/ORIENTATION: Yes oriented to person, Yes oriented to place and Yes oriented to time Skin: COMMON NORMALS: no rashes or lesions noted GENERAL SKIN EXAM: no rashes or lesions noted Course Vital Signs: Vital signs: Vital Signs Temperature 97.7 F 04/09/23 11:11 Pulse Rate 87 04/09/23 19:42 Respiratory Rate 14 04/09/23 11:11 Blood Pressure 144/86 04/09/23 19:42 Pulse Oximetry 96 04/09/23 19:42 Oxygen Delivery Me thod Room Air 04/09/23 17:00 MDM - General Adult Medical Decision Making PEG tube has been out for 10 to 12 hours. A Nava was placed initially to try and 18 was able to get a 16 Polish in. A difficult time fighting an actual PEG tube. Attempted to place the Alfred however abdominal wall is too thick for the Alfred to reach the stomach. A Nava replaced and eventually we were able to confirm that we would be able to get a PEG tube from where the home supply stores. Care signed out to Dr. Ku at change of shift. See final notes for diagnosis and disposition. Dr. Ku will replace the Nava with a gastric tube once the tube arrives from the supplier. 16 Polish gastric tube replaced. 5 mL of saline infused into balloon. Secured. No complication. Will allow home. Medical Records I reviewed the patient's medical records. Lab Data I reviewed the patient's lab results. Radiology Impressions KUB X-Ray 04/09/23 17:01 IMPRESSION: As above. Discharge Plan Discharge Patient Disposition: Home Clinical Impression: Complaint associated with gastric tube Condition: Stable Prescriptions: No Action All Day Allergy (cetirizine) 10 mg capsule 10 mg PO DAILY PRN (Reason: Allergy Symptoms) Prolia 60 mg/mL syringe 60 mg SUBCUT .every 6 months (DME) Lift Chair Motor See Rx Instructions .Route .MEDSUPPLY Qty: 1 0RF Rx Instructions: As directed citalopram 40 mg tablet 40 mg PO DAILY Qty: 90 1RF nystatin 100,000 unit/gram cream 1 applic topical BID Qty: 30 0RF Rx Instructions: To affected area atorvastatin 10 mg tablet 10 mg PO DAILY fentanyl 37.5 mcg/hour patch 72 hour 1 patch transdermal Q72H lidocaine HCl [Lidocaine Viscous] 2 % solution 1 applic mucous membrane QID oxycodone 20 mg/mL (1 mL) concentrate 20 mg PO BID PRN albuterol sulfate 90 mcg/actuation HFA aerosol inhaler 2 inh inhalation Q4H PRN (Reason: shortness of breath or wheezing) Qty: 8.5 1RF amoxicillin 875 mg tablet 875 mg PO BID brimonidine 0.2 % drops 1 drp ophthalmic (eye) .COMPLEX 90 Days Qty: 30 1RF Rx Instructions: 1 drp ophthalmic (eye) 1 drop in each eye BID; (DME) Bone Growth Stimulator E0748 See Rx Instructions .Route .MEDSUPPLY Qty: 1 0RF Rx Instructions: As directed warfarin 10 mg tablet See Rx Instructions .ROUTE .COMPLEX Qty: 143 0RF Hold Instructions: Resume on 08/12/21. Dose Instruction: TAKE 1 TABLET DAILY ON , AND SATURDAYS. TAKE 2 TABLETS DAILY ON SUNDAYS, WED, WED AND FRIDAYS DIRECTED Rx Instructions: TAKE 15MG WEDNESDAY AND THURSDAYS, TAKE 17.5MG WEDNESDAY,WEDNESDAY,WEDNESDAY,Wednesday. WEDNESDAY AND WEDNESDAY 15MG, nortriptyline 25 mg capsule See Rx Instructions .ROUTE .COMPLEX Qty: 90 0RF Dose Instruction: TAKE 1 CAPSULE AT BEDTIME Rx Instructions: TAKE 1 CAPSULE AT BEDTIME furosemide 20 mg tablet See Rx Instructions .ROUTE .COMPLEX Qty: 90 0RF Dose Instruction: TAKE 1 TABLET EVERY MORNING Rx Instructions: TAKE 1 TABLET EVERY MORNING aripiprazole 2 mg tablet See Rx Instructions .ROUTE .COMPLEX Qty: 90 1RF Dose Instruction: TAKE ONE TABLET BY MOUTH EVERY DAY Rx Instructions: TAKE ONE TABLET BY MOUTH EVERY DAY tramadol 50 mg tablet 50 mg PO Q6H PRN (Reason: pain) Qty: 30 0RF cholecalciferol (vitamin D3) 125 mcg (5,000 unit) capsule See Rx Instructions .ROUTE .COMPLEX Qty: 90 10RF Dose Instruction: TAKE 1 CAPSULE EVERY DAY Rx Instructions: TAKE 1 CAPSULE EVERY DAY calcium carbonate 600 mg calcium (1,500 mg) tablet See Rx Instructions .ROUTE .COMPLEX Qty: 90 10RF Dose Instruction: TAKE 1 TABLET EVERY DAY Rx Instructions: TAKE 1 TABLET EVERY DAY omeprazole 40 mg capsule,delayed release(DR/EC) See Rx Instructions .ROUTE .COMPLEX Qty: 90 10RF Dose Instruction: TAKE 1 CAPSULE EVERY DAY Rx Instructions: TAKE 1 CAPSULE EVERY DAY folic acid 1 mg tablet 1 mg PO DAILY Qty: 90 1RF latanoprost 0.005 % drops 1 drp ophthalmic (eye) BEDTIME lactulose 10 gram/15 mL solution 15 ml PO PRN Rx Instructions: TAKE 15ML (10 GRAMS) DAILY Benadryl Allergy 25 mg Tablet 50 mg PO PRN PRN (Reason: Allergy Symptoms) Discharge Orders: Discharge ED (Routine); Ordered 04/09/23 Ordered By: Gregory Ku Referrals: Mckenna Rubin DO [Primary Care Provider] - Patient Instructions: GI Tube Care, Opioid Safety, Pain Management Activity Restrictions/Additional Instructions: Return for increasing pain or any other problems associated with your tube. Coding Level of Care Code ED Assessment Rn for Misti Elizabeth
[2023-04-09 17:00] VITALS: BP 121/72; PULSE 102; O2SAT 98
--- NOTE | 2023-04-09 17:01 | XRR_ITS ---
PROCEDURE INFORMATION: Exam: XR Abdomen Exam date and time: 04/09/2023 5:09 PM Age: 72 years old Clinical indication: Device placement; Non-vascular device; Other: Peg tube; Additional info: Flush peg tube w 50 gastrograffin and xray TECHNIQUE: Imaging protocol: Radiologic exam of the abdomen. Views: Frontal supine view of the abdomen. 1 View. COMPARISON: CR XR KUB portable [id number] 11/06/2021 5:24 AM FINDINGS: An electronic device appears to project over the distal end of a Peg-tube. This is in the proximal body of the stomach. Contrast opacifies the stomach and proximal small bowel. No evidence for extravasation. No bowel dilation. XR/XR KUB portable [id number] IMPRESSION: As above.
--- NOTE | 2023-04-09 18:57 | PC.NURSE ---
PATIENT IS CURRENTLY WAITING ON [facility] FOR APPROPRIATE PEG TUBE SUPPLIES DUE TO LACK OF SUPPLIES IN FACILITY.
[2023-04-09 19:42] VITALS: BP 144/86; PULSE 87; O2SAT 96
== END 2023-04-09 19:43 | disposition home or self-care (01) ==
PROVIDERS: Emergency Provider Family Medicine; PCP Family Medicine
DX: K94.20 Gastrostomy complication, unspecified (principal); Z79.01 Long term (current) use of anticoagulants; Z87.891 Personal history of nicotine dependence; Z85.89 Personal history of malignant neoplasm of other organs and systems; E78.5 Hyperlipidemia, unspecified
CPT/HCPCS: 74018; 99283

== ENCOUNTER → 2023-05-21 10:46 | Outpatient (BNVA) | payer MEDICARE, OTHER, SELFPAY | PROVIDERS: PCP Family Medicine; Visit Provider Internal Medicine | DX: M80.08XA Age-related osteoporosis with current pathological fracture, vertebra(e), initial encounter for fracture; S32.051A Stable burst fracture of fifth lumbar vertebra, initial encounter for closed fracture; X58.XXXA Exposure to other specified factors, initial encounter; Z85.89 Personal history of malignant neoplasm of other organs and systems | CPT/HCPCS: 36415; 80048; 82306; 99214 ==

== ENCOUNTER 2023-05-31 08:49 | Oncology outpatient (recurring) (ONCR) | payer MEDICARE, OTHER, SELFPAY ==
[2023-05-31 09:21] VITALS: BP 118/80; PULSE 66; RESP 16; TEMP 36.7; O2SAT 98
[2023-05-31 09:42] VITALS: BP 117/70; PULSE 82; RESP 14; TEMP 36.3; O2SAT 96
[2023-05-31] MEDS: denosumab 60 mg SDV SUBCUT (09:54)
== END 2023-06-03 23:59 | disposition home or self-care (01) ==
PROVIDERS: PCP Family Medicine; Visit Provider Internal Medicine
DX: M81.0 Age-related osteoporosis without current pathological fracture (principal)
CPT/HCPCS: 96372; J0897

== ENCOUNTER 2023-06-04 14:14 | Outpatient (CLI) | payer MEDICARE, OTHER, SELFPAY ==
--- NOTE | 2023-06-04 14:30 | XR_ITS ---
WS: [id number] DEXA (DUAL ENERGY X-RAY ABSORPTIOMETRY) Bone mineral density was performed using a Emulate machine. HISTORY: osteoporosis COMPARISON: 09/10/2016 Left forearm BMD: 0.645 g/cm2. T score: -2.6 Z score: -0.8 Total hip BMD: Left: 0.708 g/cm2. T score: -2.4 Z score: -1.5 Right: 0.787 g/cm2. T score: -1.8 Z score: -0.8 10 year probability of a major osteoporotic fracture is 22.2%. Compared to the prior study from 09/10/2016. Bilateral hips bone mineral density has decreased by 0.7%. IMPRESSION: OSTEOPOROSIS based upon the WHO classification for females. No significant change in bone mineral density within the hips since 2016.
== END 2023-06-04 14:15 | disposition home or self-care (01) ==
LOC: RAD 14:15
PROVIDERS: PCP Family Medicine; Visit Provider Internal Medicine
DX: S32.051A Stable burst fracture of fifth lumbar vertebra, initial encounter for closed fracture (principal); M80.00XA Age-related osteoporosis with current pathological fracture, unspecified site, initial encounter for fracture; E55.9 Vitamin D deficiency, unspecified; X58.XXXA Exposure to other specified factors, initial encounter
CPT/HCPCS: 77080

== ENCOUNTER 2023-09-13 10:44 | Outpatient (CLI) | payer MEDICARE, OTHER, SELFPAY ==
--- NOTE | 2023-09-13 10:48 | MM_ITS ---
WS: [id number] DIAGNOSTIC BILATERAL DIGITAL BREAST TOMOSYNTHESIS MAMMOGRAPHY WITH RIGHT IMPLANT DISPLACEMENT VIEWS A ND CAD HISTORY: HX OF BREAST CA COMPARISON: 01/28/2022, 12/27/2020, 03/19/2020 TECHNIQUE: Bilateral craniocaudad, mediolateral oblique, and mediolateral views are submitted with to mosynthesis and SM. RIGHT breast implant displacement views. Computer aided detection utilized. Breast composition: The breasts are heterogeneously dense, which may obscure small masses. Scattered asymmetries within each breast. Scattered bilateral calcifications are stable. Majority of these appe ar to be dystrophic calcifications. Partial capsular contraction of the RIGHT breast implant. There i s distortion and volume loss in the RIGHT breast from prior lumpectomy. MM/[place] [id number] IMPRESSION: BI-RADS: 2-Benign FOLLOW UP: 1 Year Follow-up
== END 2023-09-13 10:45 | disposition home or self-care (01) ==
LOC: RAD 10:44
PROVIDERS: PCP Family Medicine; Visit Provider Family Medicine
DX: Z12.31 Encounter for screening mammogram for malignant neoplasm of breast (principal); R92.333 Mammographic heterogeneous density, bilateral breasts; N64.89 Other specified disorders of breast; R92.1 Mammographic calcification found on diagnostic imaging of breast; T85.44XA Capsular contracture of breast implant, initial encounter; Z98.890 Other specified postprocedural states
CPT/HCPCS: 77062; G0279

== ENCOUNTER → 2023-09-29 13:16 | Outpatient (BNVA) | payer MEDICARE, OTHER, SELFPAY | PROVIDERS: PCP Family Medicine; Visit Provider Nurse Practitioner Family | DX: L82.1 Other seborrheic keratosis (principal); D23.72 Other benign neoplasm of skin of left lower limb, including hip; L81.4 Other melanin hyperpigmentation; L57.8 Other skin changes due to chronic exposure to nonionizing radiation; D22.5 Melanocytic nevi of trunk | CPT/HCPCS: 99213 ==

== ENCOUNTER → 2023-10-21 11:38 | Outpatient (BNVA) | payer MEDICARE, OTHER, SELFPAY | PROVIDERS: PCP Family Medicine; Visit Provider Family Medicine Adult Medicine | DX: Z79.01 Long term (current) use of anticoagulants (principal); K21.9 Gastro-esophageal reflux disease without esophagitis; K50.90 Crohn's disease, unspecified, without complications | CPT/HCPCS: 85610 ==

== ENCOUNTER → 2023-11-20 13:26 | Outpatient (BNVA) | payer MEDICARE, OTHER, SELFPAY | PROVIDERS: PCP Family Medicine Adult Medicine; Visit Provider Emergency Medicine | DX: J06.9 Acute upper respiratory infection, unspecified (principal) | CPT/HCPCS: 87400; 87426 ==

== ENCOUNTER 2023-11-29 13:41 | Oncology outpatient (recurring) (ONCR) | payer MEDICARE, OTHER, SELFPAY ==
[2023-11-29] MEDS: denosumab 60 mg SDV SUBCUT (14:28)
[2023-11-29 14:29] VITALS: BP 151/85; PULSE 68
[2023-11-29 14:56] LABS: Calcium 9.2 mg/dL (8.5-10.5)
== END 2023-12-04 23:59 | disposition home or self-care (01) ==
PROVIDERS: Visit Provider Internal Medicine
DX: M81.0 Age-related osteoporosis without current pathological fracture (principal); Z79.899 Other long term (current) drug therapy
CPT/HCPCS: 36415; 82310; 96372; J0897

== ENCOUNTER → 2023-12-03 13:36 | Outpatient (BNVA) | payer MEDICARE, OTHER, SELFPAY | PROVIDERS: Visit Provider Family Medicine | DX: R42 Dizziness and giddiness (principal) | CPT/HCPCS: 80053; 85025 ==

== ENCOUNTER 2023-12-08 10:50 | Outpatient (RCR) | payer MEDICARE, OTHER, SELFPAY | END 2024-01-03 23:59 | disposition home or self-care (01) | LOC: SST 10:50 | PROVIDERS: PCP Family Medicine; Visit Provider Internal Medicine Medical Oncology | DX: C10.9 Malignant neoplasm of oropharynx, unspecified (principal); R13.19 Other dysphagia | CPT/HCPCS: 92526; 92610 ==

== ENCOUNTER 2024-01-04 06:00 | Outpatient (RCR) | payer MEDICARE, OTHER, SELFPAY | END 2024-02-03 23:59 | disposition home or self-care (01) | LOC: SST 06:00 | PROVIDERS: PCP Family Medicine; Visit Provider Internal Medicine Medical Oncology | DX: C10.9 Malignant neoplasm of oropharynx, unspecified (principal); R13.19 Other dysphagia | CPT/HCPCS: 92526 ==

== ENCOUNTER 2024-02-04 06:00 | Outpatient (RCR) | payer MEDICARE, OTHER, SELFPAY | END 2024-03-04 23:59 | disposition home or self-care (01) | LOC: SST 06:00 | PROVIDERS: PCP Family Medicine; Visit Provider Internal Medicine Medical Oncology | DX: C10.9 Malignant neoplasm of oropharynx, unspecified (principal); R13.19 Other dysphagia | CPT/HCPCS: 92526 ==

== ENCOUNTER 2024-05-04 14:47 | Outpatient (CLI) | payer MEDICARE, OTHER, SELFPAY ==
--- NOTE | 2024-05-04 14:52 | XR_ITS ---
WS: [id number] Exam: XR chest 2V* [id number] Date/Time of Exam: 05/04/2024 3:05 PM Reason For Exam: rule out bullous/ hbo clearance Comparison 03/08/2023. The lungs are hyperinflated and clear. Heart size is normal. The mediastinum is normal in contour. No pleural effusion. Neurostimulator electrodes in the mid thoracic spinal canal. Bilateral shoulder pr ostheses noted. Several old RIGHT rib fractures. Hernandez rods noted in the lower thoracic and visu alized lumbar spine. Signs of vertebroplasty involving the upper L-spine. Gastrotomy tube partially v isualized. XR/XR chest 2V* [id number] IMPRESSION: 1. No acute cardiopulmonary finding. 2. Pulmonary hyperinflation which might indicate obstructive lung disease.
[2024-05-04 15:23] LABS: Basophils # 0.1 10^3/uL (0.0-0.1); Basophils % 0.7 %; Eosinophils % 0.6 %; Hematocrit 38.8 % (36-47); Lymphocytes # 0.7 10^3/uL (0.8-4.8); Lymphocytes % 10.4 %; Mean Corpuscular HGB Conc 31.7 g/dL (30-55); Mean Corpuscular Hemoglobin 31.9 pg (27-33); Mean Corpuscular Volume 100.8 fl (85-98); Mean Platelet Volume 9.8 fL (7.4-10.4); Monocytes # 0.4 10^3/uL (0.2-0.9); Monocytes % 6.2 %; Neutrophils # 5.44 10^3/uL (1.8-7.7); Neutrophils % 80.9 %; Nucleated Red Blood Cells % 0 %; Platelet Count 407 10^3/cmm (157-399); Red Blood Count 3.85 10^6/uL (3.85-5.65); Red Cell Distribution Width 16.1 % (12.1-15.1); White Blood Count 6.73 10^3/uL (3.29-11.43)
[2024-05-04 15:46] LABS: Alanine Aminotransferase 19 U/L (0-33); Albumin Level 3.5 g/dL (3.5-5.2); Alkaline Phosphatase 69 U/L (35-105); Anion Gap 15.9 (5-19); Aspartate Amino Transferase 24 U/L (0-32); Blood Urea Nitrogen 17 mg/dL (8-23); Calcium 9.9 mg/dL (8.5-10.5); Carbon Dioxide 27 mmol/L (22-29); Chloride 97 mmol/L (98-107); Globulin 3.8 g/dL (1.3-4.6); Glucose 108 mg/dL (65-115); Osmolality Calculated 282 mOsm/kg (285-295); Potassium 4.9 mmol/L (3.5-5.1); Sodium 135 mmol/L (136-145); Total Bilirubin 0.3 mg/dL (0.15-1.2); Total Protein 7.3 g/dL (6.6-8.7)
== END 2024-05-04 14:48 | disposition home or self-care (01) ==
LOC: LAB 14:52
PROVIDERS: PCP Family Medicine; Visit Provider Thoracic Surgery (Cardiothoracic Vascular Surgery)
DX: Z13.83 Encounter for screening for respiratory disorder NEC (principal); M27.2 Inflammatory conditions of jaws; Y84.2 Radiological procedure and radiotherapy as the cause of abnormal reaction of the patient, or of later complication, without mention of misadventure at the time of the procedure; R91.8 Other nonspecific abnormal finding of lung field; Z98.890 Other specified postprocedural states; Z87.81 Personal history of (healed) traumatic fracture
CPT/HCPCS: 36415; 71046; 80053; 85025; 93005; 99212

== ENCOUNTER → 2024-05-26 10:11 | Outpatient (BNVA) | payer MEDICARE, OTHER, SELFPAY | PROVIDERS: PCP Family Medicine; Visit Provider Family Medicine | DX: E03.9 Hypothyroidism, unspecified (principal) | CPT/HCPCS: 84439; 84443 ==

== ENCOUNTER → 2024-05-29 13:05 | Outpatient (BNVA) | payer MEDICARE, OTHER, SELFPAY | PROVIDERS: PCP Family Medicine; Visit Provider Thoracic Surgery (Cardiothoracic Vascular Surgery) | DX: L59.8 Other specified disorders of the skin and subcutaneous tissue related to radiation (principal) | CPT/HCPCS: G0277 ==

== ENCOUNTER 2024-05-30 08:25 | Oncology outpatient (recurring) (ONCR) | payer MEDICARE, OTHER, SELFPAY ==
[2024-05-30 08:53] VITALS: BP 96/62; PULSE 67; RESP 17; TEMP 36.4; O2SAT 92
[2024-05-30] MEDS: denosumab 60 mg SDV SUBCUT (08:59)
== END 2024-06-02 23:59 | disposition home or self-care (01) ==
PROVIDERS: PCP Family Medicine; Visit Provider Internal Medicine
DX: M81.0 Age-related osteoporosis without current pathological fracture (principal); Z79.899 Other long term (current) drug therapy
CPT/HCPCS: 86376; 96372; G0277; J0897

== ENCOUNTER → 2024-05-31 13:07 | Outpatient (BNVA) | payer MEDICARE, OTHER, SELFPAY | PROVIDERS: PCP Family Medicine; Visit Provider Thoracic Surgery (Cardiothoracic Vascular Surgery) | DX: L59.8 Other specified disorders of the skin and subcutaneous tissue related to radiation (principal) | CPT/HCPCS: G0277 ==

== ENCOUNTER → 2024-06-01 12:52 | Outpatient (BNVA) | payer MEDICARE, OTHER, SELFPAY | PROVIDERS: PCP Family Medicine; Visit Provider Thoracic Surgery (Cardiothoracic Vascular Surgery) | DX: L59.8 Other specified disorders of the skin and subcutaneous tissue related to radiation (principal) | CPT/HCPCS: G0277 ==

== ENCOUNTER → 2024-06-06 13:01 | Outpatient (BNVA) | payer MEDICARE, OTHER, SELFPAY | PROVIDERS: PCP Family Medicine; Visit Provider Thoracic Surgery (Cardiothoracic Vascular Surgery) | DX: L59.8 Other specified disorders of the skin and subcutaneous tissue related to radiation (principal) | CPT/HCPCS: G0277 ==

== ENCOUNTER → 2024-06-07 13:02 | Outpatient (BNVA) | payer MEDICARE, OTHER, SELFPAY | PROVIDERS: PCP Family Medicine; Visit Provider Thoracic Surgery (Cardiothoracic Vascular Surgery) | DX: L59.8 Other specified disorders of the skin and subcutaneous tissue related to radiation (principal) | CPT/HCPCS: G0277 ==

== ENCOUNTER → 2024-06-08 12:58 | Outpatient (BNVA) | payer MEDICARE, OTHER, SELFPAY | PROVIDERS: PCP Family Medicine; Visit Provider Thoracic Surgery (Cardiothoracic Vascular Surgery) | DX: L59.8 Other specified disorders of the skin and subcutaneous tissue related to radiation (principal) | CPT/HCPCS: G0277 ==

== ENCOUNTER → 2024-06-09 12:04 | Outpatient (BNVA) | payer MEDICARE, OTHER, SELFPAY | PROVIDERS: PCP Family Medicine; Visit Provider Internal Medicine | DX: M80.08XA Age-related osteoporosis with current pathological fracture, vertebra(e), initial encounter for fracture (principal); X58.XXXA Exposure to other specified factors, initial encounter | CPT/HCPCS: 36415; 80053; 82306 ==

== ENCOUNTER → 2024-06-14 12:55 | Outpatient (BNVA) | payer MEDICARE, OTHER, SELFPAY | PROVIDERS: PCP Family Medicine; Visit Provider Thoracic Surgery (Cardiothoracic Vascular Surgery) | DX: L59.8 Other specified disorders of the skin and subcutaneous tissue related to radiation (principal) | CPT/HCPCS: G0277 ==

== ENCOUNTER → 2024-06-15 12:52 | Outpatient (BNVA) | payer MEDICARE, OTHER, SELFPAY | PROVIDERS: PCP Family Medicine; Visit Provider Thoracic Surgery (Cardiothoracic Vascular Surgery) | DX: L59.8 Other specified disorders of the skin and subcutaneous tissue related to radiation (principal) | CPT/HCPCS: G0277 ==

== ENCOUNTER → 2024-06-19 13:05 | Outpatient (BNVA) | payer MEDICARE, OTHER, SELFPAY | PROVIDERS: PCP Family Medicine; Visit Provider Thoracic Surgery (Cardiothoracic Vascular Surgery) | DX: L59.8 Other specified disorders of the skin and subcutaneous tissue related to radiation (principal) | CPT/HCPCS: G0277 ==

== ENCOUNTER → 2024-06-21 13:04 | Outpatient (BNVA) | payer MEDICARE, OTHER, SELFPAY | PROVIDERS: PCP Family Medicine; Visit Provider Thoracic Surgery (Cardiothoracic Vascular Surgery) | DX: L59.8 Other specified disorders of the skin and subcutaneous tissue related to radiation (principal) | CPT/HCPCS: G0277 ==

== ENCOUNTER → 2024-06-22 13:02 | Outpatient (BNVA) | payer MEDICARE, OTHER, SELFPAY | PROVIDERS: PCP Family Medicine; Visit Provider Thoracic Surgery (Cardiothoracic Vascular Surgery) | DX: L59.8 Other specified disorders of the skin and subcutaneous tissue related to radiation (principal) | CPT/HCPCS: G0277 ==

== ENCOUNTER → 2024-06-26 12:49 | Outpatient (BNVA) | payer MEDICARE, OTHER, SELFPAY | PROVIDERS: PCP Family Medicine; Visit Provider Thoracic Surgery (Cardiothoracic Vascular Surgery) | DX: L59.8 Other specified disorders of the skin and subcutaneous tissue related to radiation (principal) | CPT/HCPCS: G0277 ==

== ENCOUNTER → 2024-06-27 13:38 | Outpatient (BNVA) | payer MEDICARE, OTHER, SELFPAY | PROVIDERS: PCP Family Medicine; Visit Provider Thoracic Surgery (Cardiothoracic Vascular Surgery) | DX: L59.8 Other specified disorders of the skin and subcutaneous tissue related to radiation (principal) | CPT/HCPCS: G0277 ==

== ENCOUNTER → 2024-06-28 13:01 | Outpatient (BNVA) | payer MEDICARE, OTHER, SELFPAY | PROVIDERS: PCP Family Medicine; Visit Provider Thoracic Surgery (Cardiothoracic Vascular Surgery) | DX: L59.8 Other specified disorders of the skin and subcutaneous tissue related to radiation (principal) | CPT/HCPCS: G0277 ==

== ENCOUNTER → 2024-06-29 12:56 | Outpatient (BNVA) | payer MEDICARE, OTHER, SELFPAY | PROVIDERS: PCP Family Medicine; Visit Provider Thoracic Surgery (Cardiothoracic Vascular Surgery) | DX: L59.8 Other specified disorders of the skin and subcutaneous tissue related to radiation (principal) | CPT/HCPCS: 99212; G0277 ==

== ENCOUNTER → 2024-07-03 12:53 | Outpatient (BNVA) | payer MEDICARE, OTHER, SELFPAY | PROVIDERS: PCP Family Medicine; Visit Provider Thoracic Surgery (Cardiothoracic Vascular Surgery) | DX: L59.8 Other specified disorders of the skin and subcutaneous tissue related to radiation (principal) | CPT/HCPCS: G0277 ==

== ENCOUNTER → 2024-07-04 13:00 | Outpatient (BNVA) | payer MEDICARE, OTHER, SELFPAY | PROVIDERS: PCP Family Medicine; Visit Provider Thoracic Surgery (Cardiothoracic Vascular Surgery) | DX: L59.8 Other specified disorders of the skin and subcutaneous tissue related to radiation (principal) | CPT/HCPCS: G0277 ==

== ENCOUNTER → 2024-07-05 13:00 | Outpatient (BNVA) | payer MEDICARE, OTHER, SELFPAY | PROVIDERS: PCP Family Medicine; Visit Provider Thoracic Surgery (Cardiothoracic Vascular Surgery) | DX: L59.8 Other specified disorders of the skin and subcutaneous tissue related to radiation (principal) | CPT/HCPCS: G0277 ==

== ENCOUNTER → 2024-07-06 13:12 | Outpatient (BNVA) | payer MEDICARE, OTHER, SELFPAY | PROVIDERS: PCP Family Medicine; Visit Provider Thoracic Surgery (Cardiothoracic Vascular Surgery) | DX: L59.8 Other specified disorders of the skin and subcutaneous tissue related to radiation (principal) | CPT/HCPCS: G0277 ==

== ENCOUNTER → 2024-07-10 13:10 | Outpatient (BNVA) | payer MEDICARE, OTHER, SELFPAY | PROVIDERS: PCP Family Medicine; Visit Provider Thoracic Surgery (Cardiothoracic Vascular Surgery) | DX: L59.8 Other specified disorders of the skin and subcutaneous tissue related to radiation (principal) | CPT/HCPCS: G0277 ==

== ENCOUNTER → 2024-07-11 13:03 | Outpatient (BNVA) | payer MEDICARE, OTHER, SELFPAY | PROVIDERS: PCP Family Medicine; Visit Provider Thoracic Surgery (Cardiothoracic Vascular Surgery) | DX: L59.8 Other specified disorders of the skin and subcutaneous tissue related to radiation (principal) | CPT/HCPCS: G0277 ==

== ENCOUNTER → 2024-07-12 13:12 | Outpatient (BNVA) | payer MEDICARE, OTHER, SELFPAY | PROVIDERS: PCP Family Medicine; Visit Provider Thoracic Surgery (Cardiothoracic Vascular Surgery) | DX: L59.8 Other specified disorders of the skin and subcutaneous tissue related to radiation (principal) | CPT/HCPCS: G0277 ==

== ENCOUNTER → 2024-07-13 12:56 | Outpatient (BNVA) | payer MEDICARE, OTHER, SELFPAY | PROVIDERS: PCP Family Medicine; Visit Provider Thoracic Surgery (Cardiothoracic Vascular Surgery) | DX: L59.8 Other specified disorders of the skin and subcutaneous tissue related to radiation (principal) | CPT/HCPCS: G0277 ==

== ENCOUNTER → 2024-07-18 12:58 | Outpatient (BNVA) | payer MEDICARE, OTHER, SELFPAY | PROVIDERS: PCP Family Medicine | DX: L59.8 Other specified disorders of the skin and subcutaneous tissue related to radiation (principal) | CPT/HCPCS: G0277 ==

== ENCOUNTER → 2024-07-19 12:58 | Outpatient (BNVA) | payer MEDICARE, OTHER, SELFPAY | PROVIDERS: PCP Family Medicine | DX: L59.8 Other specified disorders of the skin and subcutaneous tissue related to radiation (principal) | CPT/HCPCS: G0277 ==

== ENCOUNTER → 2024-07-24 13:13 | Outpatient (BNVA) | payer MEDICARE, OTHER, SELFPAY | PROVIDERS: PCP Family Medicine; Visit Provider Thoracic Surgery (Cardiothoracic Vascular Surgery) | DX: L59.8 Other specified disorders of the skin and subcutaneous tissue related to radiation (principal) | CPT/HCPCS: G0277 ==

== ENCOUNTER → 2024-07-25 13:02 | Outpatient (BNVA) | payer MEDICARE, OTHER, SELFPAY | PROVIDERS: PCP Family Medicine; Visit Provider Thoracic Surgery (Cardiothoracic Vascular Surgery) | DX: L59.8 Other specified disorders of the skin and subcutaneous tissue related to radiation (principal) | CPT/HCPCS: G0277 ==

== ENCOUNTER → 2024-07-26 13:10 | Outpatient (BNVA) | payer MEDICARE, OTHER, SELFPAY | PROVIDERS: PCP Family Medicine; Visit Provider Thoracic Surgery (Cardiothoracic Vascular Surgery) | DX: L59.8 Other specified disorders of the skin and subcutaneous tissue related to radiation (principal) | CPT/HCPCS: G0277 ==

== ENCOUNTER → 2024-07-27 12:58 | Outpatient (BNVA) | payer MEDICARE, OTHER, SELFPAY | PROVIDERS: PCP Family Medicine; Visit Provider Thoracic Surgery (Cardiothoracic Vascular Surgery) | DX: L59.8 Other specified disorders of the skin and subcutaneous tissue related to radiation (principal) | CPT/HCPCS: G0277 ==

== ENCOUNTER → 2024-07-31 12:56 | Outpatient (BNVA) | payer MEDICARE, OTHER, SELFPAY | PROVIDERS: PCP Family Medicine; Visit Provider Thoracic Surgery (Cardiothoracic Vascular Surgery) | DX: L59.8 Other specified disorders of the skin and subcutaneous tissue related to radiation (principal) | CPT/HCPCS: G0277 ==

== ENCOUNTER → 2024-08-03 12:57 | Outpatient (BNVA) | payer MEDICARE, OTHER, SELFPAY | PROVIDERS: PCP Family Medicine; Visit Provider Thoracic Surgery (Cardiothoracic Vascular Surgery) | DX: L59.8 Other specified disorders of the skin and subcutaneous tissue related to radiation (principal) | CPT/HCPCS: G0277 ==

== ENCOUNTER → 2024-08-07 13:47 | Outpatient (BNVA) | payer MEDICARE, OTHER, SELFPAY | PROVIDERS: PCP Family Medicine; Visit Provider Thoracic Surgery (Cardiothoracic Vascular Surgery) | DX: L59.8 Other specified disorders of the skin and subcutaneous tissue related to radiation (principal) | CPT/HCPCS: G0277 ==

== ENCOUNTER → 2024-08-08 13:06 | Outpatient (BNVA) | payer MEDICARE, OTHER, SELFPAY | PROVIDERS: PCP Family Medicine; Visit Provider Thoracic Surgery (Cardiothoracic Vascular Surgery) | DX: L59.8 Other specified disorders of the skin and subcutaneous tissue related to radiation (principal) | CPT/HCPCS: G0277 ==

== ENCOUNTER → 2024-08-09 13:13 | Outpatient (BNVA) | payer MEDICARE, OTHER, SELFPAY | PROVIDERS: PCP Family Medicine; Visit Provider Thoracic Surgery (Cardiothoracic Vascular Surgery) | DX: L59.8 Other specified disorders of the skin and subcutaneous tissue related to radiation (principal) | CPT/HCPCS: G0277 ==

== ENCOUNTER → 2024-08-10 13:18 | Outpatient (BNVA) | payer MEDICARE, OTHER, SELFPAY | PROVIDERS: PCP Family Medicine; Visit Provider Thoracic Surgery (Cardiothoracic Vascular Surgery) | DX: L59.8 Other specified disorders of the skin and subcutaneous tissue related to radiation (principal) | CPT/HCPCS: G0277 ==

== ENCOUNTER → 2024-08-14 12:56 | Outpatient (BNVA) | payer MEDICARE, OTHER, SELFPAY | PROVIDERS: PCP Family Medicine; Visit Provider Thoracic Surgery (Cardiothoracic Vascular Surgery) | DX: L59.8 Other specified disorders of the skin and subcutaneous tissue related to radiation (principal) | CPT/HCPCS: G0277 ==

== ENCOUNTER 2024-08-15 08:26 | Outpatient (CLI) | payer MEDICARE, OTHER, SELFPAY ==
[2024-08-15 09:05] LABS: Alanine Aminotransferase 26 U/L (0-33); Albumin Level 3.6 g/dL (3.5-5.2); Alkaline Phosphatase 60 U/L (35-105); Aspartate Amino Transferase 36 U/L (0-32); Blood Urea Nitrogen 7 mg/dL (8-23); Calcium 8.9 mg/dL (8.5-10.5); Carbon Dioxide 26 mmol/L (22-29); Chloride 100 mmol/L (98-107); Globulin 2.9 g/dL (1.3-4.6); Glucose 77 mg/dL (65-115); Osmolality Calculated 279 mOsm/kg (285-295); Sodium 136 mmol/L (136-145); Total Bilirubin 0.6 mg/dL (0.15-1.2); Total Protein 6.5 g/dL (6.6-8.7)
[2024-08-15 09:21] LABS: 25 Hydroxy Vitamin D 95 ng/mL (30-100)
== END 2024-08-15 08:27 | disposition home or self-care (01) ==
PROVIDERS: PCP Family Medicine; Visit Provider Internal Medicine
DX: Z79.891 Long term (current) use of opiate analgesic (principal); E55.9 Vitamin D deficiency, unspecified
CPT/HCPCS: 36415; 80053; 82306

== ENCOUNTER → 2024-08-16 12:40 | Outpatient (BNVA) | payer MEDICARE, OTHER, SELFPAY | PROVIDERS: PCP Family Medicine; Visit Provider Thoracic Surgery (Cardiothoracic Vascular Surgery) | DX: L59.8 Other specified disorders of the skin and subcutaneous tissue related to radiation (principal) | CPT/HCPCS: G0277 ==

== ENCOUNTER → 2024-08-22 13:00 | Outpatient (BNVA) | payer MEDICARE, OTHER, SELFPAY | PROVIDERS: PCP Family Medicine; Visit Provider Thoracic Surgery (Cardiothoracic Vascular Surgery) | DX: L59.8 Other specified disorders of the skin and subcutaneous tissue related to radiation (principal) | CPT/HCPCS: 99212; G0277 ==

== ENCOUNTER → 2024-08-23 12:53 | Outpatient (BNVA) | payer MEDICARE, OTHER, SELFPAY | PROVIDERS: PCP Family Medicine; Visit Provider Thoracic Surgery (Cardiothoracic Vascular Surgery) | DX: L59.8 Other specified disorders of the skin and subcutaneous tissue related to radiation (principal) | CPT/HCPCS: G0277 ==

== ENCOUNTER → 2024-08-29 10:45 | Outpatient (BNVA) | payer MEDICARE, OTHER, SELFPAY | PROVIDERS: PCP Family Medicine; Visit Provider Family Medicine | DX: D68.318 Other hemorrhagic disorder due to intrinsic circulating anticoagulants, antibodies, or inhibitors (principal); Z79.01 Long term (current) use of anticoagulants; I82.509 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 of unspecified lower extremity | CPT/HCPCS: 85610 ==

== ENCOUNTER → 2024-09-06 08:11 | Outpatient (BNVA) | payer MEDICARE, OTHER, SELFPAY | PROVIDERS: PCP Family Medicine; Visit Provider Thoracic Surgery (Cardiothoracic Vascular Surgery) | DX: L59.8 Other specified disorders of the skin and subcutaneous tissue related to radiation (principal) | CPT/HCPCS: 99212; G0277 ==

== ENCOUNTER → 2024-09-07 08:28 | Outpatient (BNVA) | payer MEDICARE, OTHER, SELFPAY | PROVIDERS: PCP Family Medicine; Visit Provider Thoracic Surgery (Cardiothoracic Vascular Surgery) | DX: L59.8 Other specified disorders of the skin and subcutaneous tissue related to radiation (principal) | CPT/HCPCS: G0277 ==

== ENCOUNTER → 2024-09-08 08:21 | Outpatient (BNVA) | payer MEDICARE, OTHER, SELFPAY | PROVIDERS: PCP Family Medicine; Visit Provider Thoracic Surgery (Cardiothoracic Vascular Surgery) | DX: L59.8 Other specified disorders of the skin and subcutaneous tissue related to radiation (principal) | CPT/HCPCS: G0277 ==

== ENCOUNTER → 2024-09-11 08:20 | Outpatient (BNVA) | payer MEDICARE, OTHER, SELFPAY | PROVIDERS: PCP Family Medicine; Visit Provider Thoracic Surgery (Cardiothoracic Vascular Surgery) | DX: L59.8 Other specified disorders of the skin and subcutaneous tissue related to radiation (principal) | CPT/HCPCS: G0277 ==

== ENCOUNTER → 2024-09-12 10:40 | Outpatient (BNVA) | payer MEDICARE, OTHER, SELFPAY | PROVIDERS: PCP Family Medicine; Visit Provider Thoracic Surgery (Cardiothoracic Vascular Surgery) | DX: L59.8 Other specified disorders of the skin and subcutaneous tissue related to radiation (principal) | CPT/HCPCS: G0277 ==

== ENCOUNTER → 2024-09-13 08:23 | Outpatient (BNVA) | payer MEDICARE, OTHER, SELFPAY | PROVIDERS: PCP Family Medicine; Visit Provider Thoracic Surgery (Cardiothoracic Vascular Surgery) | DX: L59.8 Other specified disorders of the skin and subcutaneous tissue related to radiation (principal) | CPT/HCPCS: G0277 ==

== ENCOUNTER → 2024-09-15 08:18 | Outpatient (BNVA) | payer MEDICARE, OTHER, SELFPAY | PROVIDERS: PCP Family Medicine; Visit Provider Thoracic Surgery (Cardiothoracic Vascular Surgery) | DX: L59.8 Other specified disorders of the skin and subcutaneous tissue related to radiation (principal) | CPT/HCPCS: G0277 ==

== ENCOUNTER → 2024-09-18 08:31 | Outpatient (BNVA) | payer MEDICARE, OTHER, SELFPAY | PROVIDERS: PCP Family Medicine; Visit Provider Thoracic Surgery (Cardiothoracic Vascular Surgery) | DX: L59.8 Other specified disorders of the skin and subcutaneous tissue related to radiation (principal) | CPT/HCPCS: G0277 ==

== ENCOUNTER → 2024-09-20 08:21 | Outpatient (BNVA) | payer MEDICARE, OTHER, SELFPAY | PROVIDERS: PCP Family Medicine; Visit Provider Thoracic Surgery (Cardiothoracic Vascular Surgery) | DX: L59.8 Other specified disorders of the skin and subcutaneous tissue related to radiation (principal) | CPT/HCPCS: G0277 ==

== ENCOUNTER → 2024-09-22 07:50 | Outpatient (BNVA) | payer MEDICARE, OTHER, SELFPAY | PROVIDERS: PCP Family Medicine; Visit Provider Thoracic Surgery (Cardiothoracic Vascular Surgery) | DX: L59.8 Other specified disorders of the skin and subcutaneous tissue related to radiation (principal) | CPT/HCPCS: G0277 ==

== ENCOUNTER → 2024-09-25 08:26 | Outpatient (BNVA) | payer MEDICARE, OTHER, SELFPAY | PROVIDERS: PCP Family Medicine; Visit Provider Thoracic Surgery (Cardiothoracic Vascular Surgery) | DX: L59.8 Other specified disorders of the skin and subcutaneous tissue related to radiation (principal) | CPT/HCPCS: G0277 ==

== ENCOUNTER → 2024-09-26 07:53 | Outpatient (BNVA) | payer MEDICARE, OTHER, SELFPAY | PROVIDERS: PCP Family Medicine; Visit Provider Thoracic Surgery (Cardiothoracic Vascular Surgery) | DX: L59.8 Other specified disorders of the skin and subcutaneous tissue related to radiation (principal) | CPT/HCPCS: G0277 ==

== ENCOUNTER → 2024-09-27 08:26 | Outpatient (BNVA) | payer MEDICARE, OTHER, SELFPAY | PROVIDERS: PCP Family Medicine; Visit Provider Thoracic Surgery (Cardiothoracic Vascular Surgery) | DX: L59.8 Other specified disorders of the skin and subcutaneous tissue related to radiation (principal) | CPT/HCPCS: G0277 ==

== ENCOUNTER → 2024-09-28 08:23 | Outpatient (BNVA) | payer MEDICARE, OTHER, SELFPAY | PROVIDERS: PCP Family Medicine; Visit Provider Thoracic Surgery (Cardiothoracic Vascular Surgery) | DX: L82.1 Other seborrheic keratosis (principal); Z08 Encounter for follow-up examination after completed treatment for malignant neoplasm; Z85.828 Personal history of other malignant neoplasm of skin; D48.5 Neoplasm of uncertain behavior of skin | CPT/HCPCS: 11102; 99213; G0277 ==

== ENCOUNTER → 2024-10-03 08:24 | Outpatient (BNVA) | payer MEDICARE, OTHER, SELFPAY | PROVIDERS: PCP Family Medicine; Visit Provider Thoracic Surgery (Cardiothoracic Vascular Surgery) | DX: L59.8 Other specified disorders of the skin and subcutaneous tissue related to radiation (principal) | CPT/HCPCS: G0277 ==

== ENCOUNTER → 2024-10-09 08:25 | Outpatient (BNVA) | payer MEDICARE, OTHER, SELFPAY | PROVIDERS: PCP Family Medicine; Visit Provider Thoracic Surgery (Cardiothoracic Vascular Surgery) | DX: L59.8 Other specified disorders of the skin and subcutaneous tissue related to radiation (principal) | CPT/HCPCS: G0277 ==

== ENCOUNTER → 2024-10-10 08:27 | Outpatient (BNVA) | payer MEDICARE, OTHER, SELFPAY | PROVIDERS: PCP Family Medicine; Visit Provider Thoracic Surgery (Cardiothoracic Vascular Surgery) | DX: L59.8 Other specified disorders of the skin and subcutaneous tissue related to radiation (principal) | CPT/HCPCS: G0277 ==

== ENCOUNTER 2024-11-21 08:25 | Oncology outpatient (recurring) (ONCR) | payer MEDICARE, OTHER, SELFPAY ==
[2024-11-21] MEDS: denosumab 60 mg SDV SUBCUT (09:09)
== END 2024-12-03 23:59 | disposition home or self-care (01) ==
PROVIDERS: PCP Family Medicine; Visit Provider Internal Medicine
DX: M81.0 Age-related osteoporosis without current pathological fracture (principal); Z79.899 Other long term (current) drug therapy
CPT/HCPCS: 96372; J0897

== ENCOUNTER → 2024-12-05 11:37 | Outpatient (BNVA) | payer MEDICARE, OTHER, SELFPAY | PROVIDERS: PCP Family Medicine; Visit Provider Family Medicine | DX: E03.9 Hypothyroidism, unspecified (principal) | CPT/HCPCS: 84439; 84443 ==

== ENCOUNTER → 2025-01-16 13:08 | Outpatient (BNVA) | payer MEDICARE, OTHER, SELFPAY | PROVIDERS: PCP Family Medicine; Visit Provider Family Medicine | DX: E03.9 Hypothyroidism, unspecified (principal) | CPT/HCPCS: 84439; 84443 ==